=== PATIENT | male | born 1960 | race African-American/Black ===

== ENCOUNTER 2018-12-14 21:56 | Inpatient (IN) | payer OTHER ==
[2018-12-14 22:31] VITALS: BMI 31.1
--- NOTE | 2018-12-14 23:27 | HP ---
CIWA Score Nausea/Vomitin Muscle Tremors: 4-Moderate,w/Arms Extend Anxiety: 4-Mod. Anxious/Guarded Agitation: 4-Moderately Restless Paroxysmal Sweats: 3 Orientation: 3-Disoriented Date>2 days Tacttile Disturbances: 0-None Auditory Disturbances: 2-Mild Harshness/Frighten Visual Disturbances: 0-None Headache: 0-None Present CIWA-Ar Total Score: 23 - Admission Criteria OASAS Guidelines: Admission for Medically Managed Detox: Requires at least one of the followin. CIWA greater than 12 2. Seizures within the past 24 hours 3. Delirium tremens within the past 24 hours 4. Hallucinations within the past 24 hours 5. Acute intervention needed for co occurring medical disorder 6. Acute intervention needed for co occurring psychiatric disorder 7. Severe withdrawal that cannot be handled at a lower level of care (continued vomiting, continued diarrhea, abnormal vital signs) requiring intravenous medication and/or fluids 8. Admission ROS [facility] Chief Complaint: C/O WITHDRAWAL SX'S. SEEKING DETOX Allergies/Adverse Reactions: Allergies Allergy/AdvReac Type Severity Reaction Status Date / Time No Known Allergies Allergy Verified 12/14/18 22:27 History of Present Illness: 58 Y.O. MALE WITH ALCOHOLISM HERE FOR DETOX. CLIENT IS SELF REFERRED. FIRST ADMISSION HERE WITH C/O WITHDRAWAL SX'S. REPORTS DAILY ALCOHOL INTAKE. DENIES EYE FIELD HAND. LAST DRINK THIS MORNING. +CIWA. REPORTS HE FALLING DOWN HIS STEPS EARLIER TODAY AFTER LOOSING HIS BALANCE. HE SUSTAINED A LARGE HEMATOMA OF HIS CHIN. SMALL BRUISES TO THE RIGHT SIDE OF HIS HEAD AND A SMALL LACERATION TO RIGHT UPPER LIP. LEFT KNEE ABRASION NOTED. HE ALSO HAS BRUISING TO THE R THIGH WITH WHAT LOOKS LIKE OLD PUNCTURE MCCLELLAN. CLIENT REPORTS BEING BITTEN BY HIS GIMENEZ 2 WEEKS AGO. HE STATES HE DID NOT SEEK ANY MEDICAL ATTENTION FOR NONE OF THE ABOVE. DENIES HX/O SEIZURES, DOES BLACK OUT LAST BEING 8 MONTHS AGO. LIVES WITH BROTHER, EMPLOYED, DENIES LEGALS. Exam Limitations: No Limitations - Ebola screening Have you traveled outside of the country in the last 21 days: No (N) Have you had contact with anyone from an Ebola affected area: No Do you have a fever: No - Review of Systems Constitutional: Chills, Loss of Appetite, Changes in sleep, Other (BODY ACHES) EENT: reports: Other (MISSING TEETH) Respiratory: reports: No Symptoms reported Cardiac: reports: Chest Pain (08/29 MIDSTERNUM) GI: reports: Nausea, Poor Appetite, Poor Fluid Intake, Abdominal cramping : reports: No Symptoms Reported Musculoskeletal: reports: Joint Pain (BOTH KNEES CHRONIC) Integumentary: reports: Bruising (TO CHIN, LEFT SIDE OF FACE RIGHT THIGH) Neuro: reports: Tremors (R/T WITHDRAWAL SX'S), Other (BLACK OUTS) Endocrine: reports: No Symptoms Reported Hematology: reports: Easy Bruising, Other (NOSE BLEEDS) Psychiatric: reports: Agitated (IRRITABLE), Anxious, Depressed (DENIES SI/HI) Other Systems: Reviewed and Negative Patient History - Patient Medical History Hx Anemia: No Hx Asthma: No Hx Chronic Obstructive Pulmonary Disease (COPD): No Hx Cancer: No Hx Cardiac Disorders: No Hx Congestive Heart Failure: No Hx Hypertension: No Hx Hypercholesterolemia: No Hx Pacemaker: No HX Cerebrovascular Accident: No Hx Seizures: No Hx Dementia: No Hx Diabetes: No Hx Gastrointestinal Disorders: No Hx Liver Disease: No Hx Genitourinary Disorders: No Hx Sexually Transmitted Disorders: No Hx Renal Disease (ESRD): No Hx Thyroid Disease: No Hx Human Immunodeficiency Virus (HIV): No Hx Hepatitis C: No Hx Depression: No Hx Suicide Attempt: No Hx Bipolar Disorder: No Hx Schizophrenia: No Other Medical History: DENIES - Patient Surgical History Past Surgical History: No - PPD History Previous Implant?: Yes Documented Results: Negative w/o proof Implanted On Prior [facility] Admission?: No PPD to be Administered?: Yes - Smoking Cessation Smoking history: Never smoked Initiated information on smoking cessation: No - Substance & Tx. History Hx Alcohol Use: Yes Hx Substance Use: No Substance Use Type: Alcohol Hx Substance Use Treatment: No - Substances abused Alcohol Substance route: Oral Frequency: Daily Amount used: 2-3 CANS OF BEER, 1 PINT OF VODKA Age of first use: 49 Date of last use: 12/14/18 Admission Physical Exam B[facility] - Vital Signs Vital Signs: Vital Signs - 24 hr 12/14/18 22:20 Temperature 99.0 F Pulse Rate 98 H Respiratory 18 Rate Blood Pressure 110/71 - Diagnostic (1) Alcohol dependence with uncomplicated withdrawal Current Visit: Yes Status: Acute (2) Depressed affect Current Visit: Yes Status: Suspected Comment: EXPRESSES DEPRESSION. DENIES SI/HI (3) Status post fall Current Visit: Yes Status: Acute Comment: TRASFER TO [facility] FOR CLEARANCE (4) Hematoma Current Visit: Yes Status: Acute Comment: CHIN (5) Dog bite of right thigh Current Visit: Yes Status: Acute Qualifiers: Encounter type: subsequent encounter Qualified Code(s): S71.151D - Open bite, right thigh, subsequent encounter; W54.0XXD - Bitten by dog, subsequent encounter Cleared for Admission [facility] - Detox or Rehab [facility] Level of Care: Medically Managed Detox Regimen/Protocol: Librium Claeared for Rehab Admission: No Breathalyzer - Breathalyzer Breathalyzer: 0.153 Urine Drug Screen - Test Device Lot number: [id number] Expiration date: 08/19/20 - Control Is test valid?: Yes - Results Drug screen NEGATIVE: Yes Inpatient Rehab Admission - Rehab Decision to Admit Inpatient rehab admission?: No
[2018-12-14] MEDS ORDERED: METHOCARBAMOL 500 MG TABLET PO PRN (23:39)
[2018-12-14] MEDS ORDERED: MAG HYDROX/AL HYDROX/SIMETH 30 ML UNIT-DOSE CUP PO PRN (23:39)
[2018-12-14] MEDS ORDERED: DICYCLOMINE HCL 10 MG CAPSULE PO PRN (23:39)
[2018-12-14] MEDS ORDERED: BISMUTH SUBSALICYLATE 524 MG/30 ML UD PO PRN (23:39)
[2018-12-14] MEDS ORDERED: ACETAMINOPHEN 325 MG TABLET (FP) PO PRN ×2 (23:39)
[2018-12-14] MEDS ORDERED: MELATONIN 5 MG TABLETS PO PRN (23:39)
[2018-12-14] MEDS ORDERED: guaiFENesin 200 MG/10 ML 10 ML UNIT-DOSE CUPS PO PRN (23:39)
[2018-12-14] MEDS ORDERED: hydrOXYzine PAMOATE 25 MG CAPSULE (FP) PO PRN (23:39)
[2018-12-14] MEDS ORDERED: ONDANSETRON *ODT* 4 MG TABLET SL PRN (23:39)
[2018-12-14] MEDS ORDERED: MAGNESIUM CITRATE 300 ML BOTTLE PO PRN (23:39)
[2018-12-14] MEDS ORDERED: MAGNESIUM HYDROX 2400MG/30ML ORAL SUSPENSION 30 ML CUP PO PRN (23:39)
[2018-12-14] MEDS ORDERED: P-EPHED 60MG/TRIPROLIDI 2.5MG TABLET PO PRN (23:39)
[2018-12-14] MEDS ORDERED: MENTHOL/PHENOL 1 EACH UD MM PRN (23:39)
--- NOTE | 2018-12-15 05:39 | PN ---
[facility] Progress Note Note: SPOKE TO DR. COMBS. CLIENT IS STILL IN THE ED AWAITING DIAGNOSTIC TESTS PRIOR TO BEING CLEARED FOR RETURN. SAME ENDORSED TO RN FILTERER OMARI Rossi
--- NOTE | 2018-12-15 12:26 | PN ---
[facility] CIWA - CIWA Score Nausea/Vomitin-Mild Nausea/No Vomiting Muscle Tremors: 4-Moderate,w/Arms Extend Anxiety: 4-Mod. Anxious/Guarded Agitation: 4-Moderately Restless Paroxysmal Sweats: 2 Orientation: 2-Disoriented Date<2 days (date of week and day of month) Tacttile Disturbances: 0-None Auditory Disturbances: 0-None Visual Disturbances: 0-None Headache: 1-Very Mild CIWA-Ar Total Score: 18 BHS Progress Note (SOAP) Subjective: return from er alert oriented x 3 speech clearly coherently ambulating steady gait patient report left knee dog bit a month ago multiple scars tissue noted none tender but "muscle sore" patient report right knee dog bit a week ago multiple small round scars tissue noted no open would noted "muscle sore" as per patient described patient denies fresh dog bit Objective: 12/15/18 13:36 Vital Signs Temperature 98.5 F 12/15/18 13:22 Pulse Rate 97 H 12/15/18 13:22 Respiratory Rate 16 12/15/18 13:22 Blood Pressure 150/83 12/15/18 13:22 O2 Sat by Pulse Oximetry (%) lab see 12/14/18 Assessment: 12/15/18 13:38 alcohol withdrawal sx Plan: continue librium detox regimen
[2018-12-15] MEDS: IBUPROFEN 400 MG TABLET (FP) PO PRN ×2 (12:28→18:31)
[2018-12-15] MEDS: PRENATAL VITAMINS W/ FOLIC ACID TABLET (FP) PO SCH (12:31)
[2018-12-15] MEDS: chlordiazePOXIDE HCL 25 MG CAPSULE PO SCH ×2 (13:23→21:30)
[2018-12-15] MEDS: RANITIDINE HCL 150 MG TABLET (FP) PO SCH ×2 (13:23→22:07)
--- NOTE | 2018-12-15 14:16 | EKG ---
Test Reason : Blood Pressure : / mmHG Vent. Rate : 083 BPM Atrial Rate : 083 BPM P-R Int : 132 ms QRS Dur : 100 ms QT Int : 400 ms P-R-T Axes : 062 -17 042 degrees QTc Int : 470 ms NORMAL SINUS RHYTHM NORMAL ECG WHEN COMPARED WITH ECG OF 15-DEC-2018 01:30, NO SIGNIFICANT CHANGE WAS FOUND Confirmed by VIC QUINONEZ MD ([id number]) on 12/15/2018 2:15:44 PM Referred By: Amor Harris Confirmed By:VIC QUINONEZ MD
--- NOTE | 2018-12-15 14:26 | CONSULT ---
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 This is patient's first admission to detox at [facility]. Patient admitted to for alcohol dependence. Substance Abuse History: - Substance & Tx. History. Hx Alcohol Use: Yes. Hx Substance Use: No. Substance Use Type: Alcohol. Hx Substance Use Treatment: No. - Substances abused. Alcohol. Substance route: Oral. Frequency: Daily. Amount used: 2-3 CANS OF BEER, 1 PINT OF VODKA. Age of first use: 49. Date of last use: 12/14/18 Medical History: denies. Psychiatric History: Patient denies h/o psychiatric hospitalization, outpatient care and suicide attempt. Denies currently feeling depressed but states that he is grieving the of his mother which occured three weeks ago. Also stated that his nephew was murdered last year and three weeks later his cousin due to her sickle cell disease. At present, patient reports difficulty sleeping. Physical/Sexual Abuse/Trauma History: denies. Mental Status Exam - Mental Status Exam Alert and Oriented to: Time, Place, Person Cognitive Function: Good Patient Appearance: Well Groomed Mood: Euthymic Affect: Mood Congruent Patient Behavior: Cooperative Speech Pattern: Appropriate Voice Loudness: Moderately Soft/Quiet Thought Process: Goal Oriented Thought Disorder: Not Present Hallucinations: Denies Suicidal Ideation: Denies Homicidal Ideation: Denies Insight/Judgement: Poor Sleep: Poorly Appetite: Fair Muscle strength/Tone: Normal Gait/Station: Normal Psychiatric Findings - Problem List ([place] 1, 2,3) (1) Alcohol-induced mood disorder Status: Acute (2) Alcohol dependence with uncomplicated withdrawal Status: Suspected (3) Alcohol induced sleep disorders Status: Acute (4) Grieving Status: Acute - Initial Treatment Plan Initial Treatment Plan: Psychoeducation provided. Detoxification in progress. Patient made aware that Melatonin 5mg is ordered for insomnia and vistaril 25mg q6h is available for anxiety.
[2018-12-15] MEDS: amLODIPine BESYLATE 10 MG TABLET (FP) PO SCH (15:22)
[2018-12-15 15:34] LABS: EPI CELLS 1.4 /HPF (0-5/HPF); HYALINE CASTS 0 /lpf (0-8); PH,URINE 6.5 (5.0-8.0); URINE APPEARANCE CLEAR; URINE BACTERIA 5.1 /hpf (NEGATIVE); URINE BILIRUBIN 2+ (NEGATIVE); URINE COLOR DK YELLOW; URINE GLUCOSE (UA) NEGATIVE (NEGATIVE); URINE KETONE NEGATIVE (NEGATIVE); URINE LEUK ESTERASE NEGATIVE (NEGATIVE); URINE NITRITE NEGATIVE (NEGATIVE); URINE PROTEIN TRACE (NEGATIVE); URINE RBC 13 /hpf (0-4); URINE UROBILINOGEN 4.0 E.U/dl mg/dL (0.2-1.0); URINE WBC 1 /hpf (0-5)
[2018-12-15] MEDS: THIAMINE HCL 100 MG TABLET (FP) PO SCH (22:07)
[2018-12-16] MEDS: chlordiazePOXIDE HCL 25 MG CAPSULE PO SCH ×3 (05:22→23:28)
[2018-12-16] MEDS: PRENATAL VITAMINS W/ FOLIC ACID TABLET (FP) PO SCH (10:29)
[2018-12-16] MEDS: chlordiazePOXIDE HCL 10 MG CAPSULE PO PRN (10:29)
[2018-12-16] MEDS: RANITIDINE HCL 150 MG TABLET (FP) PO SCH ×2 (10:29→23:29)
[2018-12-16] MEDS: IBUPROFEN 400 MG TABLET (FP) PO PRN (10:31)
[2018-12-16] MEDS: amLODIPine BESYLATE 10 MG TABLET (FP) PO SCH (10:32)
--- NOTE | 2018-12-16 15:38 | PN ---
[facility] CIWA - CIWA Score Nausea/Vomitin-No Nausea/No Vomiting Muscle Tremors: 3 Anxiety: 3 Agitation: 2 Paroxysmal Sweats: No Perspiration Orientation: 0-Oriented Tacttile Disturbances: 2-Mild Itch/Numbness/Burn Auditory Disturbances: 2-Mild Harshness/Frighten Visual Disturbances: 1-Very Mild Sensitivity Headache: 0-None Present CIWA-Ar Total Score: 13 S Progress Note (SOAP) Subjective: Anxious, Tremors, Body Aches. Objective: PATIENT A & O X 3, OBSERVED AMBULATING ON DETOX UNIT UNASSISTED. IN NO ACUTE DISTRESS. 12/16/18 15:38 Vital Signs Temperature 97.0 F L 12/16/18 14:15 Pulse Rate 77 12/16/18 14:15 Respiratory Rate 18 12/16/18 14:15 Blood Pressure 129/80 12/16/18 14:15 O2 Sat by Pulse Oximetry (%) Laboratory Tests 12/15/18 11:25 Urine Color Dk yellow Urine Appearance Clear Urine pH 6.5 Ur Specific [place] 1.081 H Urine Protein Trace Urine Glucose (UA) Negative Urine Ketones Negative Urine Blood 1+ H Urine Nitrite Negative Urine Bilirubin 2+ H Urine Urobilinogen 4.0 e.u/dl Ur Leukocyte Esterase Negative Urine WBC (Auto) 1 Urine RBC (Auto) 13 Urine Casts (Auto) 0 U Epithel Cells (Auto) 1.4 Urine Bacteria (Auto) 5.1 LABS NOTED. Assessment: 12/16/18 15:41 WITHDRAWAL SYMPTOMS. HYPERBILIRUBINEMIA. ANEMIA. ELEVATED AST LEVEL. ELEVATED ALKALINE PHOSPHATASE LEVEL. (FINDINGS CONSISTENT WITH CIRRHOSIS OF LIVER NOTED ON CT SCAN OF ABDOMEN DONE AT [facility] YESTERDAY). 12/16/18 15:45 Plan: CONTINUE DETOX. OSCAL, 500 MG PO BID FOR OW CA LEVEL NOTED ON DETOX ADMISSION LABORATORY ASSESSMENT. PATIENT REPORTS THAT HE FELL A COUPLE OF DAYS AGO PRIOR TO ADMISSION TO DETOX AND THAT HE THINKS THAT HE INJURED HIS ABDOMEN DURING FALL. PATIENT WAS EVALUATED AT [facility] ER FOR FALL AND CT SCAN OF ABDOMEN WAS DONE (RESULTS NOTED: SEVERAL CHRONIC ISSUES NOTED; HOWEVER, NO ACUTE CHANGES NOTED ON ABDOMINAL CT SCAN REPORT). TODAY, PATIENT REPORTS PAIN (SHARP IN QUALITY, 10/10 ON PAIN SCALE, CONSTANT, GENERALIZED THROUGHOUT ABDOMEN). PAIN IS GENERALLY AGGRAVATED BY MOVEMENT, PARTICULARLY WHEN PATIENT IS TRYING TO GET UP OUT OF BED IN AM. PATIENT DENIES DIARRHEA, CONSTIPATION, OR RECENT CHANGE IN BOWEL MOVEMENTS. PATIENT DENIES NAUSEA / VOMITING. NO ERYTHEMA, BRUISING, OR WOUNDS NOTED ON VISUALIZATION OF ABDOMEN. ABDOMEN APPEARS SOMEWHAT DISTENDED. BOWEL SOUNDS NORMOACTIVE IN ALL FOUR QUADRANTS OF ABDOMEN. TENDERNESS NOTED UPON PALPATION OF ALL QUADRANTS OF ABDOMEN. REPORT GIVEN TO DR. PHILLIPS AT [facility]. PATIENT TO BE TAKEN VIA AMBULANCE TO [facility] FOR FURTHER MEDICAL EVALUATION. Sandra LUTZ NP.
[2018-12-16] MEDS: CALCIUM 500MG/VIT-D 200 UNITS COMBO TABLET (FP) PO SCH (23:28)
[2018-12-16] MEDS: THIAMINE HCL 100 MG TABLET (FP) PO SCH (23:29)
[2018-12-17] MEDS: chlordiazePOXIDE HCL 10 MG CAPSULE PO PRN (01:41)
[2018-12-17] MEDS: IBUPROFEN 400 MG TABLET (FP) PO PRN (01:41)
[2018-12-17] MEDS ORDERED: chlordiazePOXIDE 5 MG CAPSULE PO SCH (05:00)
[2018-12-17] MEDS ORDERED: LORazepam 0.5 MG TABLET PO PRN (09:20)
[2018-12-17] MEDS: RANITIDINE HCL 150 MG TABLET (FP) PO SCH ×2 (10:13→22:16)
[2018-12-17] MEDS: PRENATAL VITAMINS W/ FOLIC ACID TABLET (FP) PO SCH (10:13)
[2018-12-17] MEDS: amLODIPine BESYLATE 10 MG TABLET (FP) PO SCH (10:13)
[2018-12-17] MEDS: CALCIUM 500MG/VIT-D 200 UNITS COMBO TABLET (FP) PO SCH ×2 (10:13→22:17)
[2018-12-17 10:22] LABS: ALBUMIN 2.4 g/dl (3.4-5.0); BILIRUBIN,DIRECT 3.5 mg/dL (0.0-0.2); BILIRUBIN,TOTAL 4.3 mg/dL (0.2-1); TOT PROT 7.2 g/dl (6.4-8.2)
[2018-12-17] MEDS: LORazepam 1 MG TABLET PO SCH ×3 (12:43→22:17)
--- NOTE | 2018-12-17 17:29 | PN ---
S CIWA - CIWA Score Nausea/Vomitin (Abdominal Cramping.) Muscle Tremors: None Anxiety: 3 Agitation: 2 Paroxysmal Sweats: No Perspiration Orientation: 0-Oriented Tacttile Disturbances: 0-None Auditory Disturbances: 0-None Visual Disturbances: 0-None Headache: 0-None Present CIWA-Ar Total Score: 8 BHS Progress Note (SOAP) Subjective: Patient reports that Abdominal Pain persists and remains generally unchanged ( in quality, degree, and location) from yesterday. PATIENT WAS EVALUATED AT [facility] YESTERDAY FOR ABDOMINAL PAIN ( SEE C.I.W.A. / S.O.A.P. NOTE FOR 12/16/2018). Objective: PATIENT A & O X 3, OBSERVED AMBULATING ON DETOX UNIT UNASSISTED. IN NO ACUTE DISTRESS. 12/17/18 17:28 Vital Signs Temperature 97 F L 12/17/18 17:17 Pulse Rate 62 12/17/18 17:17 Respiratory Rate 18 12/17/18 17:17 Blood Pressure 124/77 12/17/18 17:17 O2 Sat by Pulse Oximetry (%) Laboratory Tests 12/15/18 12/17/18 11:25 07:40 Total Bilirubin 4.3 H Direct Bilirubin 3.5 H AST 76 H ALT 28 Alkaline Phosphatase 315 H Total Protein 7.2 Albumin 2.4 L Urine Color Dk yellow Urine Appearance Clear Urine pH 6.5 Ur Specific [place] 1.081 H Urine Protein Trace Urine Glucose (UA) Negative Urine Ketones Negative Urine Blood 1+ H Urine Nitrite Negative Urine Bilirubin 2+ H Urine Urobilinogen 4.0 e.u/dl Ur Leukocyte Esterase Negative Urine WBC (Auto) 1 Urine RBC (Auto) 13 Urine Casts (Auto) 0 U Epithel Cells (Auto) 1.4 Urine Bacteria (Auto) 5.1 LABS NOTED. RESULTS OF HFP DRAWN EARLIER TODAY NOTED. INCREASE IN TOTAL BILIRUBIN LEVEL NOTED. REDUCTIONS IN AST AND IN ALKALINE PHOSPHATASE LEVELS NOTED. 12/17/18 17:30 Assessment: 12/17/18 17:31 WITHDRAWAL SYMPTOMS. HYPERBILIRUBINEMIA. ELEVATED ALKALINE PHOSPHATASE LEVEL. ELEVATED AST LEVEL. Plan: CONTINUE DETOX. PATIENT ADVISED TO FOLLOW-UP WITH CONTINUOUS VULCANIZING MACHINE OPERATOR SOON POSSIBLE AFTER DISCHARGE FROM DETOX FOR GENERAL MEDICAL ASSESSMENT AND FOR ELEVATED LIVER ENZYMES AND FOR ELEVATED TOTAL BILIRUBBIN LEVELS AND FOR ANEMIA NOTED ON DETOX ADMISSION AND REPEAT LABORATORY LABORATORY ASSESSMENTS AND FOR VARIOUS ANOMALIES NOTED ON ABDOMINAL CT AND ON ABDOMINAL ULTRASOUND DONE WHAILE ADMTITED FOR DETOX. PATIENT VERBALIZED UNDERSTANDING OF RECOMMENDATION. COPIES OF RESULTS OF ALL LABS DRAWN WHILE ADMITTED FOR DETOX AND OF ABDOMINAL CT AND ULTRASOUND WILL BE GIVEN TO PATIENT AT TIME OF DISCHARGE FROM DETOX UNIT.
[2018-12-17] MEDS: THIAMINE HCL 100 MG TABLET (FP) PO SCH (22:16)
[2018-12-18] MEDS ORDERED: chlordiazePOXIDE HCL 10 MG CAPSULE PO PRN
[2018-12-18] MEDS ORDERED: chlordiazePOXIDE HCL 10 MG CAPSULE PO SCH (05:00)
[2018-12-18] MEDS: LORazepam 0.5 MG TABLET PO SCH ×4 (05:26→22:30)
[2018-12-18] MEDS: RANITIDINE HCL 150 MG TABLET (FP) PO SCH ×2 (10:23→22:31)
[2018-12-18] MEDS: CALCIUM 500MG/VIT-D 200 UNITS COMBO TABLET (FP) PO SCH ×2 (10:23→22:31)
[2018-12-18] MEDS: amLODIPine BESYLATE 10 MG TABLET (FP) PO SCH (10:23)
[2018-12-18] MEDS: PRENATAL VITAMINS W/ FOLIC ACID TABLET (FP) PO SCH (10:23)
--- NOTE | 2018-12-18 12:28 | PN ---
[facility] CIWA - CIWA Score Nausea/Vomitin-No Nausea/No Vomiting Muscle Tremors: 1-None Visible, but [place] Anxiety: 1-Mildly Anxious Agitation: 1-Slight > Activity Paroxysmal Sweats: 1-Minimal Palms Moist Orientation: 0-Oriented Tacttile Disturbances: 0-None Auditory Disturbances: 0-None Visual Disturbances: 0-None Headache: 0-None Present CIWA-Ar Total Score: 4 S Progress Note (SOAP) Subjective: doing well with ativan detox regimen less tremor slept better at night Objective: 12/18/18 12:27 Vital Signs Temperature 97.5 F L 12/18/18 09:48 Pulse Rate 99 H 12/18/18 09:48 Respiratory Rate 20 12/18/18 09:48 Blood Pressure 126/76 12/18/18 09:48 O2 Sat by Pulse Oximetry (%) Laboratory Last Values Total Bilirubin 4.3 mg/dL (0.2-1) H 12/17/18 07:40 Direct Bilirubin 3.5 mg/dL (0.0-0.2) H 12/17/18 07:40 AST 76 U/L (15-37) H 12/17/18 07:40 ALT 28 U/L (13-61) 12/17/18 07:40 Alkaline Phosphatase 315 U/L (45-117) H 12/17/18 07:40 Total Protein 7.2 g/dl (6.4-8.2) 12/17/18 07:40 Albumin 2.4 g/dl (3.4-5.0) L 12/17/18 07:40 Urine Color Dk yellow 12/15/18 11:25 Urine Appearance Clear 12/15/18 11:25 Urine pH 6.5 (5.0-8.0) 12/15/18 11:25 Ur Specific [place] 1.081 (1.010-1.035) H 12/15/18 11:25 Urine Protein Trace (NEGATIVE) 12/15/18 11:25 Urine Glucose (UA) Negative (NEGATIVE) 12/15/18 11:25 Urine Ketones Negative (NEGATIVE) 12/15/18 11:25 Urine Blood 1+ (NEGATIVE) H 12/15/18 11:25 Urine Nitrite Negative (NEGATIVE) 12/15/18 11:25 Urine Bilirubin 2+ (NEGATIVE) H 12/15/18 11:25 Urine Urobilinogen 4.0 e.u/dl mg/dL (0.2-1.0) 12/15/18 11:25 Ur Leukocyte Esterase Negative (NEGATIVE) 12/15/18 11:25 Urine WBC (Auto) 1 /hpf (0-5) 12/15/18 11:25 Urine RBC (Auto) 13 /hpf (0-4) 12/15/18 11:25 Urine Casts (Auto) 0 /lpf (0-8) 12/15/18 11:25 U Epithel Cells (Auto) 1.4 /HPF (0-5/HPF) 12/15/18 11:25 Urine Bacteria (Auto) 5.1 /hpf (NEGATIVE) 12/15/18 11:25 lab noted Assessment: 12/18/18 12:27 alcohol withdrawal sx Plan: [facility]
[2018-12-18] MEDS: THIAMINE HCL 100 MG TABLET (FP) PO SCH (22:30)
[2018-12-19] MEDS ORDERED: LORazepam 0.5 MG TABLET PO ONE (05:00)
[2018-12-19] MEDS ORDERED: chlordiazePOXIDE HCL 10 MG CAPSULE PO ONE (05:00)
[2018-12-19 06:31] VITALS: BP 140/83; PULSE 94; TEMP 99.2
--- NOTE | 2018-12-19 11:50 | DS ---
[facility] Detox Discharge Summary Admission Date: 12/15/18 Discharge Date: 12/19/18 - History Present History: Alcohol Dependence Additional Comments: did well with ativan detox regimen transferred to ER for abdominal pain 12/29 medically cleared return to detox unit for alcohol detox patient experienced similar pain on 12/14/18 treated at ER patient agrees to follow up with primary care provider for possible renal specialist referral today patient is alert oriented x 3 denies pain ambulating steady gait speech clearly and coherently cardiac S1S2 regular rate and rhythm respiratory clear lung bilaterally on auscultation Vital Signs Temperature 99.2 F 12/19/18 06:30 Pulse Rate 94 H 12/19/18 06:30 Respiratory Rate 18 12/19/18 06:30 Blood Pressure 140/83 12/19/18 06:30 O2 Sat by Pulse Oximetry (%) extremities full range of motion patient reports antihypertensive medications at home and will follow up with primary care provider for bp monitoring - Physical Exam Results Vital Signs: Vital Signs Temperature 99.2 F 12/19/18 06:30 Pulse Rate 94 H 12/19/18 06:30 Respiratory Rate 18 12/19/18 06:30 Blood Pressure 140/83 12/19/18 06:30 O2 Sat by Pulse Oximetry (%) Pertinent Admission Physical Exam Findings: alcohol withdrawal sx Laboratory Last Values Total Bilirubin 4.3 mg/dL (0.2-1) H 12/17/18 07:40 Direct Bilirubin 3.5 mg/dL (0.0-0.2) H 12/17/18 07:40 AST 76 U/L (15-37) H 12/17/18 07:40 ALT 28 U/L (13-61) 12/17/18 07:40 Alkaline Phosphatase 315 U/L (45-117) H 12/17/18 07:40 Total Protein 7.2 g/dl (6.4-8.2) 12/17/18 07:40 Albumin 2.4 g/dl (3.4-5.0) L 12/17/18 07:40 Urine Color Dk yellow 12/15/18 11:25 Urine Appearance Clear 12/15/18 11:25 Urine pH 6.5 (5.0-8.0) 12/15/18 11:25 Ur Specific [place] 1.081 (1.010-1.035) H 12/15/18 11:25 Urine Protein Trace (NEGATIVE) 12/15/18 11:25 Urine Glucose (UA) Negative (NEGATIVE) 12/15/18 11:25 Urine Ketones Negative (NEGATIVE) 12/15/18 11:25 Urine Blood 1+ (NEGATIVE) H 12/15/18 11:25 Urine Nitrite Negative (NEGATIVE) 12/15/18 11:25 Urine Bilirubin 2+ (NEGATIVE) H 12/15/18 11:25 Urine Urobilinogen 4.0 e.u/dl mg/dL (0.2-1.0) 12/15/18 11:25 Ur Leukocyte Esterase Negative (NEGATIVE) 12/15/18 11:25 Urine WBC (Auto) 1 /hpf (0-5) 12/15/18 11:25 Urine RBC (Auto) 13 /hpf (0-4) 12/15/18 11:25 Urine Casts (Auto) 0 /lpf (0-8) 12/15/18 11:25 U Epithel Cells (Auto) 1.4 /HPF (0-5/HPF) 12/15/18 11:25 Urine Bacteria (Auto) 5.1 /hpf (NEGATIVE) 12/15/18 11:25 lab noted patient agrees to follow up with his primary care provider - Treatment Hospital Course: Detox Protocol Followed, Detoxed Safely, Responded well, Discharged Condition Good, Rehab Referral Accepted Patient has Accepted a Rehab Referral to: [facility] - Medication Discharge Medications: Ambulatory Orders NK [No Known Home Medication] 12/14/18 - Diagnosis (1) Alcohol dependence with uncomplicated withdrawal Status: Suspected (2) Hypertension Status: Chronic Qualifiers: Hypertension type: essential hypertension Qualified Code(s): I10 - Essential (primary) hypertension (3) GERD (gastroesophageal reflux disease) Status: Chronic Qualifiers: Esophagitis presence: without esophagitis Qualified Code(s): K21.9 - Gastro -esophageal reflux disease without esophagitis - AMA Did Patient Leave Against Medical Advice: No CIWA Score - CIWA Score Nausea/Vomitin-No Nausea/No Vomiting Muscle Tremors: None Anxiety: 0-No Anxiety, at Ease Agitation: 0-Normal Activity Paroxysmal Sweats: 1-Minimal Palms Moist Orientation: 0-Oriented Tacttile Disturbances: 0-None Auditory Disturbances: 0-None Visual Disturbances: 0-None Headache: 0-None Present CIWA-Ar Total Score: 1
== END 2018-12-19 08:44 | disposition home or self-care (01) | DRG 775 ==
LOC: YASAS 21:56 → Y3N 12-15 00:10
PROVIDERS: ADMIT Surgery; ATTEND Surgery
PROC: HZ2ZZZZ Detoxification Services for Substance Abuse Treatment (ICD-10-PCS; principal; 2018-12-15)
DX: F10.230 Alcohol dependence with withdrawal, uncomplicated (principal); F10.24 Alcohol dependence with alcohol-induced mood disorder; F10.282 Alcohol dependence with alcohol-induced sleep disorder; F32.9 Major depressive disorder, single episode, unspecified; I10 Essential (primary) hypertension; K21.9 Gastro-esophageal reflux disease without esophagitis; E80.6 Other disorders of bilirubin metabolism; D64.9 Anemia, unspecified; K74.60 Unspecified cirrhosis of liver; S00.83XD Contusion of other part of head, subsequent encounter; W19.XXXD Unspecified fall, subsequent encounter; S71.151D Open bite, right thigh, subsequent encounter; W54.0XXD Bitten by dog, subsequent encounter
CPT/HCPCS: 36415; 80076; 81003; 93005; 93010

== ENCOUNTER 2018-12-15 00:04 | Emergency (ER) | payer SELFPAY ==
--- NOTE | 2018-12-15 01:04 | PDOC ---
Attending Attestation - Resident Resident Name: BerniceSavi - ED Attending Attestation I have performed the following: I have examined & evaluated the patient, The case was reviewed & discussed with the resident, I agree w/resident's findings & plan - HPI HPI: 12/15/18 02:44 see resident hpi - Physicial Exam PE: 12/15/18 02:44 agree with resident exam - Medical Decision Making 12/15/18 02:44 58 yo male s/p fall down stairs with abd pain, vomiting perdomo trauma CT due to LOC and ETOH abuse hopefully clear back to rehab
--- NOTE | 2018-12-15 01:11 | PDOC ---
History of Present Illness - General Chief Complaint: Injury Stated Complaint: FALL Time Seen by Provider: 12/15/18 01:01 History Source: Patient Exam Limitations: No Limitations - History of Present Illness Initial Comments: 12/15/18 07:40 58yo M with PMH of Alcohol use presenting to ED s/p fall. Pt states he drank 1/ 2L vodka at 1230pm then fell down the stairs around 1pm because hi tripped due to his dog. He states that he had loc for 2 min. He then got up to work on his computer, fell asleep after eating a sandwich. Started vomiting (nbnb) upon waking and vomited multiple times after that. He states that his brother sent him to [facility] for detox. He endorses pain under his chin, diffuse abdominal pain. Denies headache, changes in vision, back pain, neck pain, epistaxis, weakness, numbness/tingling. Past History - Past Medical History Allergies/Adverse Reactions: Allergies Allergy/AdvReac Type Severity Reaction Status Date / Time No Known Allergies Allergy Verified 12/15/18 02:58 Home Medications: Ambulatory Orders NK [No Known Home Medication] 12/14/18 Anemia: No Asthma: No Cancer: No Cardiac Disorders: No CVA: No COPD: No CHF: No Dementia: No Diabetes: No GI Disorders: No Disorders: No HTN: No Hypercholesterolemia: No Liver Disease: No Seizures: No Thyroid Disease: No - Psycho Social/Smoking Cessation Hx Smoking History: Never smoked Hx Alcohol Use: Yes Drug/Substance Use Hx: No Substance Use Type: Alcohol Hx Substance Use Treatment: No Review of Systems - Review of Systems Constitutional: No: Symptoms Reported HEENTM: Yes: See HPI Respiratory: No: Symptoms reported Cardiac (ROS): No: Symptoms Reported ABD/GI: Yes: See HPI : No: Symptoms Reported Musculoskeletal: Yes: See HPI Integumentary: Yes: See HPI Neurological: No: Symptoms reported *Physical Exam - Physical Exam General Appearance: Yes: Nourished, Appropriately Dressed. No: Apparent Distress HEENT: positive: EOMI, MAXIMILIANO, Normal ENT Inspection, TMs Normal, Other ( eccymosis under chin, ttp, no dislocations, bony deformities. negative battles sign, normal TM) Neck: positive: Trachea midline, Supple. negative: Lymphadenopathy (R), Lymphadenopathy (L), Rigidity, Tender lateral, Tender midline Respiratory/Chest: positive: Lungs Clear. negative: Chest Tender, Accessory Muscle Use Cardiovascular: positive: Regular Rhythm, Regular Rate, S1, S2. negative: Edema , JVD, Murmur Vascular Pulses: Dorsalis-Pedis (R): 2+, Doralis-Pedis (L): 2+ Gastrointestinal/Abdominal: positive: Normal Bowel Sounds, Soft, Tenderness. negative: Protuberent, Distended, Guarding, Rebound Musculoskeletal: negative: CVA Tenderness Extremity: positive: Normal Capillary Refill. 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 will obtain labs, ekg, cxr, perdomo scan. labs wnl. no white count. ct head and cspine negative for bleed or fracture. atelectasis v. infiltrate. no white count, no sob. low suspicion for pna. pt eating and ambulatory, safe for dc back to [facility], given return precautions. Discharge - Discharge Information Problems reviewed: Yes Clinical Impression/Diagnosis: Fall Qualifiers: Encounter type: initial encounter Qualified Code(s): W19.XXXA - Unspecified fall, initial encounter Condition: Good Disposition: HOME - Follow up/Referral - Patient Discharge Instructions Patient Printed Discharge Instructions: How to Prevent Falls Additional Instructions: You were seen in the emergency room today for a fall. The CT scans are all normal, no fractures or bleeding seen. Come back to the emergency room if you have numbness/tingling, difficulty walking, difficulty speaking, abdominal pain, n/v/d, blood in the vomit, fevers , or if any new concerning symptom develops. Thank you - Post Discharge Activity
[2018-12-15] MEDS ORDERED: FAMOTIDINE 20 MG/50 ML IVPB 20 MG/50 ML MG IVPB ONE ×2 (01:20→01:52)
[2018-12-15] MEDS ORDERED: SODIUM CHLORIDE 1,000 ML IV STA (01:20)
[2018-12-15 01:41] LABS: EOS % 0.7 % (0-4.5); HEMATOCRIT 31.8 % (35.4-49); HEMOGLOBIN 10.4 GM/dL (11.7-16.9); LYMPH % 9.5 % (8-40); MCH 31.7 pg (25.7-33.7); MCHC 32.8 g/dl (32.0-35.9); MEAN CELL VOLUME 96.6 fl (80-96); MONO % 5.9 % (3.8-10.2); NEUT % 80.9 % (42.8-82.8); PLATELET COUNT 152 K/MM3 (134-434); RDW 15.8 % (11.9-15.9)
[2018-12-15 01:52] LABS: INR 1.65 (0.83-1.09); PROTHROMBIN TIME (PATIENT) 19.6 SEC (9.7-13.0)
[2018-12-15 02:10] LABS: ALBUMIN 2.9 g/dl (3.4-5.0); ALK PHOS 344 U/L (45-117); ANION GAP 8 MMOL/L (8-16); BILIRUBIN,TOTAL 3.6 mg/dL (0.2-1); BLOOD UREA NITROGEN 8.3 mg/dL (7-18); CALCIUM 7.9 mg/dL (8.5-10.1); CHLORIDE 107 mmol/L (98-107); CO2 27 mmol/L (21-32); CREATININE 0.7 mg/dL (0.55-1.3); GLUCOSE,RANDOM 105 mg/dL (74-106); POTASSIUM 4.2 mmol/L (3.5-5.1); SGOT/AST 123 U/L (15-37); SGPT/ALT 38 U/L (13-61); SODIUM 142 mmol/L (136-145); TOT PROT 8.4 g/dl (6.4-8.2)
[2018-12-15] MEDS ORDERED: ACETAMINOPHEN 1000 MG/100 ML VIAL (NON FORMULARY) IVPB ONE (02:29)
[2018-12-15 02:58] VITALS: BP 111/56; PULSE 89; TEMP 98.2; BMI 35.9
[2018-12-15] MEDS ORDERED: ACETAMINOPHEN INJECTION 100 ML IVPB ONE (03:18)
--- NOTE | 2018-12-15 14:07 | EKG ---
Test Reason : Blood Pressure : / mmHG Vent. Rate : 086 BPM Atrial Rate : 086 BPM P-R Int : 134 ms QRS Dur : 096 ms QT Int : 402 ms P-R-T Axes : 067 -20 055 degrees QTc Int : 481 ms NORMAL SINUS RHYTHM PROLONGED QT ABNORMAL ECG NO PREVIOUS ECGS AVAILABLE Confirmed by DEVI ALLRED, VIC ([id number]) on 12/15/2018 2:06:57 PM Referred By: Confirmed By:VIC QUINONEZ MD
[2018-12-16 06:33] LABS: LIPASE 164 U/L (73-393)
== END 2018-12-15 08:33 | disposition home or self-care (01) ==
LOC: JER 00:04
PROC: 3E033NZ Introduction of Analgesics, Hypnotics, Sedatives into Peripheral Vein, Percutaneous Approach (ICD-10-PCS; principal; 2018-12-15)
PROC: 3E033GC Introduction of Other Therapeutic Substance into Peripheral Vein, Percutaneous Approach (ICD-10-PCS; 2018-12-15)
PROC: 3E0337Z Introduction of Electrolytic and Water Balance Substance into Peripheral Vein, Percutaneous Approach (ICD-10-PCS; 2018-12-15)
DX: S06.9X9A Unspecified intracranial injury with loss of consciousness of unspecified duration, initial encounter (principal); W10.9XXA Fall (on) (from) unspecified stairs and steps, initial encounter; Y93.89 Activity, other specified; Y92.89 Other specified places as the place of occurrence of the external cause; F10.10 Alcohol abuse, uncomplicated
CPT/HCPCS: 36415; 70450-TC; 70486-TC; 71045-TC-FY; 72125-TC; 74177-TC; 80053; 80307; 83690; 84484; 85025; 85610; 86850; 86900; 86901; 93005; 93010; 99282-25; J0131; J7030

== ENCOUNTER 2018-12-16 17:29 | Emergency (ER) | payer OTHER ==
[2018-12-16 18:10] VITALS: TEMP 98.3; BMI 28.5
[2018-12-16 19:42] LABS: BASO % 0.9 % (0-2.0); EOS % 1.8 % (0-4.5); HEMATOCRIT 27.9 % (35.4-49); HEMOGLOBIN 9.4 GM/dL (11.7-16.9); MCH 32.3 pg (25.7-33.7); MCHC 33.6 g/dl (32.0-35.9); MEAN CELL VOLUME 96.2 fl (80-96); MEAN PLT VOLUME 9.5 fl (7.5-11.1); MONO % 5.2 % (3.8-10.2); NEUT % 78.1 % (42.8-82.8); PLATELET COUNT 138 K/MM3 (134-434); RDW 15.5 % (11.9-15.9); WHITE BLOOD COUNT 8.3 K/mm3 (4.0-10.0)
[2018-12-16 20:09] LABS: ALBUMIN 2.4 g/dl (3.4-5.0); BILIRUBIN,TOTAL 4.1 mg/dL (0.2-1); BLOOD UREA NITROGEN 11.2 mg/dL (7-18); CALCIUM 7.8 mg/dL (8.5-10.1); CREATININE 0.5 mg/dL (0.55-1.3); POTASSIUM 3.9 mmol/L (3.5-5.1); TOT PROT 7.2 g/dl (6.4-8.2)
--- NOTE | 2018-12-16 20:34 | PDOC ---
History of Present Illness - General Chief Complaint: Pain Stated Complaint: ABDOMINAL PAIN Time Seen by Provider: 12/16/18 19:19 History Source: Patient Exam Limitations: No Limitations - History of Present Illness Initial Comments: 12/16/18 20:34 Alen Miguel is a 58M with PMH alcohol use disorder presenting from [facility] for upper abdominal pain. Patient reports drinking 1/2 bottle of vodka and some beers 3 days TILE [employer]ICK[employer] that resulted in him falling down the stairs while intoxicated. Presented to [facility] ED and was evaluated with labs, CXR, and CT head/cspine/face/abd that did not reveal any acute pathologies, was discharged to [facility] for detox. However, patient has been feeling 10/10 abd pain in his upper abdomen on both sides at all times, says he is uncomfortable and in pain. Pain is the same as the pain that he felt after falling down the stairs, has not improved or worsened, does not have an inciting or relieving activity, unrelated to food intake. Denies N/V, C/D, chest pain, SOB, fever, urinary sx. Denies any other PMH or daily medications. NKDA. Past History - Past Medical History Allergies/Adverse Reactions: Allergies Allergy/AdvReac Type Severity Reaction Status Date / Time No Known Allergies Allergy Verified 12/16/18 18:10 Home Medications: Ambulatory Orders NK [No Known Home Medication] 12/14/18 Anemia: No Asthma: No Cancer: No Cardiac Disorders: No CVA: No COPD: No CHF: No Dementia: No Diabetes: No GI Disorders: No Disorders: No HTN: No Hypercholesterolemia: No Liver Disease: No Seizures: No Thyroid Disease: No - Psycho Social/Smoking Cessation Hx Smoking History: Never smoked Have you smoked in the past 12 months: No Information on smoking cessation initiated: No Hx Alcohol Use: Yes Drug/Substance Use Hx: No Substance Use Type: Alcohol Hx Substance Use Treatment: No Review of Systems - Review of Systems Able to Perform ROS?: Yes Is the patient limited Honduran proficient: No Constitutional: No: Chills, Fever HEENTM: Yes: Mouth Pain (pain on chin). No: Blurred Vision, Recent change in vision, Hearing Loss, Throat Pain Respiratory: No: Cough, Shortness of Breath, Wheezing Cardiac (ROS): No: Chest Pain, Edema, Palpitations ABD/GI: Yes: Other (upper abdominal pain). No: Constipated, Diarrhea, Nausea, Vomiting : No: Burning, Dysuria, Discharge, Frequency, Flank Pain, Hematuria Musculoskeletal: No: Symptoms Reported Integumentary: No: Symptoms Reported Neurological: No: Headache, Numbness, Paresthesia, Tingling Endocrine: No: Symptoms Reported Hematologic/Lymphatic: No: Symptoms Reported All Other Systems: Reviewed and Negative *Physical Exam - Vital Signs Last Vital Signs Temp Pulse Resp BP Pulse Ox 98.3 F 83 18 117/76 100 12/16/18 18:12/16/18 18:12/16/18 18:12/16/18 18:12/16/18 18:09 - Physical Exam General Appearance: Yes: Nourished, Appropriately Dressed. No: Apparent Distress HEENT: positive: EOMI, MAXIMILIANO, Normal Voice, Symmetrical, Pharynx Normal. negative: Scleral Icterus (R), Scleral Icterus (L), Pharyngeal Erythema, Tonsillar Exudate Neck: positive: Normal Thyroid, Supple. negative: Tender, Rigid, Lymphadenopathy (R), Lymphadenopathy (L) Respiratory/Chest: positive: Lungs Clear, Normal Breath Sounds. negative: Respiratory Distress, Crackles, Rales, Rhonchi Cardiovascular: positive: Regular Rhythm, Regular Rate. negative: Edema Gastrointestinal/Abdominal: positive: Normal Bowel Sounds, Flat, Soft, Other ( upper abdomen is non-tender to palpation with no rebound or guarding, negative Whitt's sign). negative: Tender Musculoskeletal: positive: Normal Inspection. negative: CVA Tenderness Extremity: positive: Normal Capillary Refill, Normal Inspection, Normal Range of Motion. negative: Tender Integumentary: positive: Normal Color, Dry, Warm Neurologic: positive: Fully Oriented, Alert, Normal Mood/Affect, Normal Response ED Treatment Course - LABORATORY CBC & Chemistry Diagram: 12/16/18 19:15 12/16/18 19:15 - ADDITIONAL ORDERS Additional order review: Laboratory Results 12/16/18 12/16/18 12/16/18 19:15 19:15 19:15 Sodium 137 Potassium 3.9 Chloride 104 Carbon Dioxide 29 Anion Gap 5 L BUN 11.2 Creatinine 0.5 L Est GFR (CKD-EPI)AfAm 137.48 Est GFR (CKD-EPI)NonAf 118.62 Random Glucose 99 Lactic Acid 1.3 Calcium 7.8 L Total Bilirubin 4.1 H AST 87 H ALT 29 Alkaline Phosphatase 328 H Total Protein 7.2 Albumin 2.4 L Total Amylase Lipase 151 12/16/18 19:15 Sodium Potassium Chloride Carbon Dioxide Anion Gap BUN Creatinine Est GFR (CKD-EPI)AfAm Est GFR (CKD-EPI)NonAf Random Glucose Lactic Acid Calcium Total Bilirubin AST ALT Alkaline Phosphatase Total Protein Albumin Total Amylase 134 H Lipase 12/16/18 19:15 RBC 2.90 L MCV 96.2 H MCHC 33.6 RDW 15.5 MPV 9.5 Neutrophils % 78.1 Lymphocytes % 14.0 D Monocytes % 5.2 Eosinophils % 1.8 D Basophils % 0.9 Medical Decision Making - Medical Decision Making 12/16/18 20:34 Alen Miguel is a 58M with H alcohol use disorder presenting from [facility] for upper abdominal pain. Given that patient was evaluated for the same complaint 3 days ago without findings on CT abd, head, and neck, acute process less likely. However, patient is describing 10/10 pain that has not improved in the same place after his fall , warranting further evaluation for renal process such as UTI vs. renal calculus vs. pyelo, pancreatitis, gastritis, SBO. Rib fracture less liekly given negative CXR prior as well as no tenderness to palpation of costal margin or difficulty breathing. Will obtain: ECG CMP CBC Lipase UA/UC Giving patient 1L IVF, IV pepcid, IV famotidine. 12/16/18 21:20 AST and AP decreased but still elevated. Tbili increasing. Concern for biliary/ hepatic pathology. Evaluating via RUQ US. 12/16/18 23:01 US read: Hepatomegaly with fatty infiltration versus hepatocellular disease. A few hypoechoic and slightly hyperechoic hepatic lesions, as described above with the largest measuring 2.4 x 1.9 cm. Although the differential diagnosis may include cavernous hemangiomas, other causes of hepatic lesions could not be excluded. Correlate clinically and correlation with contrast-enhanced CT scan or MRI of the abdomen is recommended utilizing hemangioma protocol for further evaluation Diffuse thickening of the gallbladder wall without gross intraluminal stones or pericholecystic free fluid. Scoring Machine Operator reports a negative Whitt's sign. Correlate clinically for further evaluation. A small amount of free fluid/ ascites is present in the right upper abdomen. 09/27/19 23:20 Does not have a fever, lithiasis, abd pain, or WBC elevation, less likely to have acute cholangitis. Patient stable to be discharged home with GI follow-up. Etiology of pain remains unknown, but no concerning pathologies noted at this time that need immediate intervention. Hypocalcemia noted at 7.8, corrected to 9.1 with low albumin. Discharge - Discharge Information Problems reviewed: Yes Clinical Impression/Diagnosis: Fatty liver Abdominal pain Qualifiers: Abdominal location: unspecified location Qualified Code(s): R10.9 - Unspecified abdominal pain Condition: Stable Disposition: HOME - Admission No - Follow up/Referral Referrals: Amor Harris MD [Primary Care Provider] - - Patient Discharge Instructions Patient Printed Discharge Instructions: DI for Abdominal Pain-Adult Additional Instructions: Today you were evaluated for upper abdominal pain. You were recently evaluated for a similar pain, and no findings were found concerning for organ bleeding, infection, or any other diseases that need immediate treatment. We repeated your blood labs today that show that your liver enzymes are still slightly elevated, To evaluate your liver, we performed an ultrasound of your liver that does not show any concerning disease in your gallbladder or liver, but does show some lesions on your liver that may be alcohol-related and should be follow -ed up with a wood boring machine operator. If you continue to experience abdominal pain, please try to stay hydrated and take ibuprofen as instructed on the bottle. Avoid Tylenol, as this may harm your liver. We have provided a referral to a wood boring machine operator, but you are free to follow-up with your preferred GI doctor as well. Please continue to follow your protocols at [facility]. Please see your primary doctor in the next 3 days for further care. If you experience nausea, vomiting, chest pain, dizziness, diarrhea, or any other new or concerning symptoms, please return to the emergency room immediately. - Post Discharge Activity
--- NOTE | 2018-12-16 20:40 | PDOC ---
Attending Attestation - Resident Resident Name: Nam Hills - ED Attending Attestation I have performed the following: I have examined & evaluated the patient, The case was reviewed & discussed with the resident, I agree w/resident's findings & plan, Exceptions are as noted - HPI HPI: 12/16/18 20:40 Mr. Miguel is a 58 yo M who presents to he ER with a complain of abdominal pain He apparently was intoxcated and fell down a flight of stairs in his home yesterday (wood stairs, tile floors in basement) Pt was evaluated with labs and CT - no acute findings Pt sent to [facility] was given motrin for pain which he says has not helped He denies fevers or chills He denies nausea or vomiting No diarrhea Does note a decrease in his appetite He reports that his pain is sharp, located through out the abdomen, most severe in the epigastrium No flank pain No prior episodes like this Pain occurred AFTER his fall (not before) 12/16/18 21:12 12/16/18 21:12 - Physicial Exam PE: 12/16/18 21:12 GENERAL: The patient is in no acute distress, pt is frustrated. ENT: Ears normal, nares patent, oropharynx clear without exudates. Moist mucous membranes. NECK: Normal range of motion, supple LUNGS: Breath sounds equal, clear to auscultation bilaterally. No wheezes, and no crackles. HEART:Regular rate and rhythm, normal S1 and S2 without murmur, rub or gallop. ABDOMEN: Soft, protruberant, diffusely tender most tender in the epigastrium EXTREMITIES: Normal range of motion, no edema. NEUROLOGICAL: Cranial nerves II through XII grossly intact. Normal speech. No focal neurological deficits. SKIN: No bruising noted, no rashes, no abrasions 12/16/18 21:14 - Medical Decision Making 12/16/18 21:15 Pt was imaged yesterday with CT No acute findings seen Laboratory Tests 12/15/18 12/16/18 12/16/18 01:30 19:15 19:15 WBC 8.3 Hgb 10.4 L 9.4 L Hct 31.8 L 27.9 L Plt Count 138 BUN 11.2 Creatinine 0.5 L Lactic Acid Lipase 09/27/19 09/27/19 19:15 19:15 WBC Hgb Hct Plt Count BUN Creatinine Lactic Acid 1.3 Lipase 151 Of noted, pt has an elevated Bilirubin Will do: U/S to further assess Liver and GB Pt is frustrated with the wait in the ER and would ultimately like to follow up at [facility] where his brother and sister are physicians 12/16/18 23:13 US with no new findings, + ascites, + hemangioma Will give sandwich as pt is very upset that he has not gotten a sandwich EKG - NSR rate of 75 bpm, Pt frustrated that he is still in the ER and would like to go home Pt given copies of all results CT findings all underlined Will return to [facility] 12/16/18 23:15 12/16/18 23:17 Calcium noted to be 7.2 This corrects to 9.1 12/16/18 23:18 EKG - NSR rate of 75 bpm, axis nml, frequent PVCs, t waves upright
[2018-12-16] MEDS ORDERED: SODIUM CHLORIDE 0.9% 500 ML INFUS.BAG IV ONE (20:45)
[2018-12-16 21:53] LABS: EPI CELLS 0.7 /HPF (0-5/HPF); HYALINE CASTS 0 /lpf (0-8); PH,URINE 7.5 (5.0-8.0); URINE APPEARANCE CLEAR; URINE BACTERIA 0.8 /hpf (NEGATIVE); URINE BILIRUBIN 3+ (NEGATIVE); URINE COLOR DK YELLOW; URINE GLUCOSE (UA) NEGATIVE (NEGATIVE); URINE KETONE TRACE (NEGATIVE); URINE LEUK ESTERASE TRACE (NEGATIVE); URINE NITRITE POSITIVE (NEGATIVE); URINE PROTEIN NEGATIVE (NEGATIVE); URINE RBC 2 /hpf (0-4); URINE UROBILINOGEN >=8.0 E.U./dl mg/dL (0.2-1.0); URINE WBC 0 /hpf (0-5)
[2018-12-16] MEDS ORDERED: ACETAMINOPHEN 500 MG TABLET (FP) PO ONE (22:37)
[2018-12-16] MEDS ORDERED: ACETAMINOPHEN 325 MG TABLET (FP) ONE (23:22)
[2018-12-17 01:11] VITALS: BP 107/67; PULSE 90
[2018-12-17] MEDS ORDERED: lamoTRIgine 100 MG TABLET (FP) ONE (01:40)
[2018-12-17] MEDS ORDERED: levETIRAcetam 500 MG TABLET (FP) PO ONE (01:40)
== END 2018-12-17 01:11 | disposition home or self-care (01) ==
LOC: JER 17:29
DX: R10.9 Unspecified abdominal pain (principal); K76.0 Fatty (change of) liver, not elsewhere classified; R94.5 Abnormal results of liver function studies; E83.51 Hypocalcemia; F10.10 Alcohol abuse, uncomplicated
CPT/HCPCS: 36415; 76705-TC; 80053; 81003; 82150; 83605; 83690; 85025; 87086; 99284-25

== ENCOUNTER 2018-12-31 10:17 | Inpatient (IN) | payer OTHER ==
[2018-12-31] MEDS ORDERED: ONDANSETRON 4 MG/2 ML VIAL IVPUSH ONE (11:10)
[2018-12-31] MEDS ORDERED: PANTOPRAZOLE SODIUM 40 MG VIAL IVPUSH ONE (11:10)
[2018-12-31] MEDS ORDERED: SODIUM CHLORIDE 0.9% 1000 ML INFUS.BAG IV ONE (11:10)
[2018-12-31] MEDS ORDERED: OCTREOTIDE ACETATE 50 MCG/1 ML - 1 ML VIAL IVPUSH ONE (11:10)
--- NOTE | 2018-12-31 11:10 | PDOC ---
Documentation entered by Kae Sanchez SCRIBE, acting as scribe for Bernadette Braun MD. Bernadette Braun MD: This documentation has been prepared by the Daniel michael Adrianna, SCRIBE, under my direction and personally reviewed by me in its entirety. I confirm that the documentation accurately reflects all work, treatment, procedures, and medical decision making performed by me. Attending Attestation - Resident Resident Name: Jean Knox - ED Attending Attestation I have performed the following: I have examined & evaluated the patient, The case was reviewed & discussed with the resident, I agree w/resident's findings & plan, Exceptions are as noted - HPI HPI: 12/31/18 11:06 58-year-old male history of alcohol abuse recently admitted and discharged for alcohol withdrawal completed detox here today complaining of nausea vomiting and diarrhea. Patient states he has had several episodes of initially nonbloody nonbilious emesis he then did start having episodes of blood-streaked vomiting yesterday. Patient has had persistent vomiting today but states that he is no longer having bloody emesis. He did however have a loose stool which was dark and then most recently combined with blood. Denies any history of previous GI bleed patient denies known history of cirrhosis however his chart review does reveal prior history of cirrhosis and recently diagnosed liver mass which was concluded to be a hemangioma. Patient states his last drink was 2 weeks ago denies abdominal pain no fevers no chills but is feeling lightheaded and dizzy - Physicial Exam PE: 12/31/18 11:08 Patient is awake alert dry mucous membranes lungs are clear bilaterally heart is regular tachycardia no murmurs rubs or gallops appreciated abdomen is soft there is mild left lower quadrant tenderness to palpation no rebound no guarding rectal exam shows melanotic stool in the vault extremities are warm and well-perfused neurologic the patient is awake alert and oriented x3 but does appear drowsy - Medical Decision Making 12/31/18 11:09 58-year-old male history of liver cirrhosis alcohol abuse here today with bloody emesis which has resolved and now melanotic stools differential includes esophageal gastric variceal bleed diverticular bleed colitis diverticulitis anemia alcohol withdrawal. Plan we will treat with IV hydration antiemetics Protonix type and screen lipase CBC CMP Hemoccult sent. Patient will require admission and consult with gastroenterology placed on CIWA precautions
[2018-12-31] MEDS ORDERED: ONDANSETRON 4 MG/2 ML VIAL ONE (11:27)
[2018-12-31] MEDS ORDERED: PANTOPRAZOLE SODIUM 80 MG/200 ML BAG IVPB ONE (11:27)
--- NOTE | 2018-12-31 12:11 | PDOC ---
History of Present Illness - General Chief Complaint: Nausea/Vomiting Stated Complaint: VOMITING Time Seen by Provider: 12/31/18 10:35 - History of Present Illness Initial Comments: 12/31/18 11:59 This is a 58 year old male with PMH significant for cirrhosis and alcohol abuse who presents with complaints of 4 weeks of abdominal pain and 6 episodes of bloody vomiting yesterday. This morning he had 1 episode of vomiting with mucus and no blood, as well as bloody diarrhea. The abdominal pain is in the LLQ, constant, 10/10 in intensity, described as sharp in quality constant in nature , partially alleviated by lying flat and aggravated by turning over. He was admitted to [facility] 2 weeks ago for alcohol detox, and was sent to [facility] after a fall. He was daignosed with cirrhosis and a hepatic hemangioma. He has had 2-3 beers since his discharge 2 weeks ago. He endorses associated nausea, SOB and a dry cough since Wednesday, but no fevers, chills, headaches, dizziness, palpitations, chest pain, or constipation. Past History - Past Medical History Allergies/Adverse Reactions: Allergies Allergy/AdvReac Type Severity Reaction Status Date / Time No Known Allergies Allergy Verified 12/16/18 18:10 Home Medications: Ambulatory Orders NK [No Known Home Medication] 12/14/18 Anemia: No Asthma: No Cancer: No Cardiac Disorders: No CVA: No COPD: No CHF: No Dementia: No Diabetes: No GI Disorders: No Disorders: No HTN: No Hypercholesterolemia: No Kidney Stones: No Liver Disease: No Seizures: No Thyroid Disease: No Other medical history: substance abuse - Reproductive History Testicular Surgery: No - Immunization History Immunization Up to Date: No - Psycho Social/Smoking Cessation Hx Smoking History: Never smoked Have you smoked in the past 12 months: No Information on smoking cessation initiated: No Hx Alcohol Use: Yes (last drink 2 days ago.) Drug/Substance Use Hx: No Substance Use Type: Alcohol Hx Substance Use Treatment: No Review of Systems - Review of Systems Constitutional: No: Symptoms Reported, See HPI, Chills, Diaphoresis, Fever, Loss of Appetite, Malaise, Night Sweats, Weakness, Weight Stable, Unintentional Wgt. Loss, Unexplained wgt Loss, Other HEENTM: No: Symptoms Reported, See HPI, Eye Pain, Blurred Vision, Tearing, Recent change in vision, Double Vision, Cataracts, Ear Pain, Ocular Prothesis, Ear Discharge, Nose Pain, Nose Congestion, Tinnitus, Nose Bleeding, Hearing Loss , Throat Pain, Throat Swelling, Mouth Pain, Dental Problems, Difficulty Swallowing, Mouth Swelling, Other Respiratory: Yes: Cough, SOB at Rest. No: Symptoms reported, See HPI, Orthopnea , Shortness of Breath, SOB with Exertion, Stridor, Wheezing, Productive cough, Hemoptysis, Other Cardiac (ROS): No: Symptoms Reported, See HPI, Chest Pain, Edema, Irregular Heart Rate, Lightheadedness, Palpitations, Syncope, Chest Tightness, Other ABD/GI: Yes: Nausea, Rectal Bleeding, Vomiting. No: Symptoms Reported, See HPI , Abdominal Distended, Abd. Pain w/ defecation, Blood Streaked Bowels, Constipated, Diarrhea, Difficulty Swallowing, Poor Appetite, Poor Fluid Intake, Indigestion, Abdominal cramping, Tarry Stools, Other Musculoskeletal: No: Symptoms Reported, See HPI, Back Pain, Gout, Joint Pain, Joint Swelling, Muscle Pain, Muscle Weakness, Neck Pain, Joint Stiffness, Other Integumentary: No: Symptoms Reported, See HPI, Bruising, Change in Color, Change in Hair/Nails, Dryness, Erythema, Flushing, Lesions, Lumps, Pallor, Pruritus, Rash, Sweating, Other Neurological: No: Symptoms reported, See HPI, Headache, Numbness, Paresthesia, Pre-Existing Deficit, Seizure, Tingling, Tremors, Weakness, Unsteady Gait, Ataxia, Dizziness, Other Psychiatric: No: Anxiety, Depression, Frequent Crying, Stressors, Sleep Pattern Change, Emotional Problems, Mood Swings, Change in Appetite, Other Endocrine: No: Symptoms Reported, See HPI, Excessive Sweating, Flushing, Intolerance to Cold, Intolerance to Heat, Increased Hunger, Increased Thirst, Increased Urine, Unexplained Weight Gain, Unexplained Weight Loss, Change in Weight, Other *Physical Exam - Vital Signs Last Vital Signs Temp Pulse Resp BP Pulse Ox 98.8 F 115 H 16 120/69 99 12/31/18 10:22 12/31/18 10:22 12/31/18 10:22 12/31/18 10:22 12/31/18 10:22 - Physical Exam Comments: 12/31/18 12:18 General: AOx3 and responsive, but drowsy Oropharynx: Upper lip swollen, dry oral mucosa Eyes: Icteric sclera, MAXIMILIANO, EOM intact Lungs: B/L Clear Heart: Elevated rate, regular rhythm, no murmurs rubs or gallops appreciated Abdomen: Soft, mild tenderness in LLQ, non-distended, normoactive bowel sounds, no rebound tenderness, liver palpated in RUQ, no rebound tenderness, Whitt's negative, CHEY showed melanotic stool in vault Extremities: No edema, warm, well perfused Heart Score/ECG Review - Age Age: 45-65 - ECG Impressions Normal ECG: Yes Non-specific ST Elevation: No Ischemic Changes: No ED Treatment Course - LABORATORY CBC & Chemistry Diagram: 12/31/18 11:45 12/31/18 11:45 Medical Decision Making - Medical Decision Making 12/31/18 12:22 - CBC/CMP - PT/INR - FOBT - Lipase - Type and screen - EKG - Trops - Alcohol level - CT A/P after RFT - Zofran 4mg - Pantoprazole 80mg - N/S 1000cc bolus - Will call GI (Dr. Jackson) after CBC 12/31/18 113:39 - Spoke with Dr. Jackson, suggested adding Levaquin 750 and 2 PRBCs. Will follow recommendations - Admitted to ICU under Dr. Varghese , patient signed out UROLOGIST MD Myles and to Dr. Polo from ICU Discharge - Discharge Information Problems reviewed: Yes Clinical Impression/Diagnosis: Abdominal pain, Hematemesis Condition: Stable - Admission Yes - Follow up/Referral - Patient Discharge Instructions - Post Discharge Activity
[2018-12-31 12:19] LABS: BASO % 0.3 % (0-2.0); EOS % 0.4 % (0-4.5); LYMPH % 8.5 % (8-40); MCH 32.3 pg (25.7-33.7); MEAN CELL VOLUME 97.9 fl (80-96); MEAN PLT VOLUME 9.5 fl (7.5-11.1); MONO % 3.5 % (3.8-10.2); NEUT % 87.3 % (42.8-82.8); PLATELET COUNT 181 K/MM3 (134-434); RBC 1.84 M/mm3 (4.00-5.60); RDW 17.7 % (11.9-15.9); WHITE BLOOD COUNT 19.7 K/mm3 (4.0-10.0)
[2018-12-31] MEDS: OCTREOTIDE ACETATE 200 MCG, OCTREOTIDE ACETATE 1,000 MCG in DEXTROSE 5%-WATER - 496 ML IVPB SCH (12:26)
[2018-12-31 12:27] LABS: HEMOGLOBIN 5.9 GM/dL (11.7-16.9)
[2018-12-31 12:32] LABS: INR 2.41 (0.83-1.09); PROTHROMBIN TIME (PATIENT) 28.7 SEC (9.7-13.0)
[2018-12-31 12:35] LABS: ACTIVATED PTT 42.1 SECONDS (25.2-36.5)
[2018-12-31 12:45] LABS: BILIRUBIN,TOTAL 5.5 mg/dL (0.2-1); BLOOD UREA NITROGEN 26.2 mg/dL (7-18); CALCIUM 7.5 mg/dL (8.5-10.1); CREATININE 0.8 mg/dL (0.55-1.3); POTASSIUM 3.9 mmol/L (3.5-5.1); TOT PROT 6.8 g/dl (6.4-8.2)
[2018-12-31] MEDS ORDERED: PHYTONADIONE 10 MG/1 ML AMP SQ ONE (13:15)
[2018-12-31] MEDS ORDERED: ACETAMINOPHEN 1000 MG/100 ML VIAL (NON FORMULARY) IVPB PRN (13:40)
--- NOTE | 2018-12-31 13:41 | CONSULT ---
Consultation: REQUESTING PROVIDER:ED team CONSULT REQUEST: We have been asked to medically evaluate this patient for (GI bleed ). HISTORY OF PRESENT ILLNESS: This is a 58 year old male with PMH significant for cirrhosis and alcohol abuse who presents with complaints of 4 weeks of abdominal pain and 6 episodes of bloody vomiting yesterday. This morning he had 1 episode of vomiting with mucus and no blood, as well as bloody diarrhea. The abdominal pain is in the LLQ, constant, 10/10 in intensity, described as sharp in quality constant in nature , partially alleviated by lying flat and aggravated by turning over. He was admitted to [facility] 2 weeks ago for alcohol detox, and was sent to [facility] after a fall. He was daignosed with cirrhosis and a hepatic hemangioma. He has had 2-3 beers since his discharge 2 weeks ago. He endorses associated nausea, SOB and a dry cough since Wednesday, but no fevers, chills, headaches, dizziness, palpitations, chest pain, or constipation. 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 daily , and cup of vodka 4-5 time a week, denies nictotin or drug use REVIEW OF SYSTEMS: CONSTITUTIONAL: Absent: fever, chills, diaphoresis, generalized weakness, malaise, loss of appetite, weight change HEENT: Absent: rhinorrhea, nasal congestion, throat pain, throat swelling, difficulty swallowing, mouth swelling, ear pain, eye pain, visual changes CARDIOVASCULAR: Absent: chest pain, syncope, palpitations, irregular heart rate, lightheadedness , peripheral edema RESPIRATORY: Absent: cough, shortness of breath, dyspnea with exertion, orthopnea, wheezing, stridor, hemoptysis GASTROINTESTINAL: Absent: abdominal pain, abdominal distension, nausea, vomiting, diarrhea, constipation, melena, hematochezia GENITOURINARY: Absent: dysuria, frequency, urgency, hesitancy, hematuria, flank pain, genital pain MUSCULOSKELETAL: Absent: myalgia, arthralgia, joint swelling, back pain, neck pain SKIN: Absent: rash, itching, pallor HEMATOLOGIC/IMMUNOLOGIC: Absent: easy bleeding, easy bruising, lymphadenopathy, frequent infections ENDOCRINE: Absent: unexplained weight gain, unexplained weight loss, heat intolerance, cold intolerance NEUROLOGIC: Absent: headache, focal weakness or paresthesias, dizziness, unsteady gait, seizure, mental status changes, bladder or bowel incontinence PSYCHIATRIC: Absent: anxiety, depression, suicidal or homicidal ideation, hallucinations. PHYSICAL EXAMINATION Vital Signs - 24 hr 12/31/18 10:22 Temperature 98.8 F Pulse Rate 115 H Respiratory 16 Rate Blood Pressure 120/69 O2 Sat by Pulse 99 Oximetry (%) GENERAL: Awake, alert, and fully oriented, in no acute distress. HEAD: Normal with no signs of trauma. EYES: Pupils equal, round and reactive to light, extraocular movements intact, sclera icteric, NECK: supple LUNGS: Breath sounds equal, clear to auscultation bilaterally. No wheezes, and no crackles. No accessory muscle use. HEART: Regular rate and rhythm, normal S1 and S2 without murmur, rub or gallop. ABDOMEN: obese Soft, LUQ and LLQ tenderness , distended, normoactive bowel sounds, LOWER EXTREMITIES: 2+ pulses, warm, well-perfused. No calf tenderness. No peripheral edema. NEUROLOGICAL: no focal deficit . Normal speech. PSYCHIATRIC: Cooperative. SKIN: Warm, dry, Laboratory Results - last 24 hr 12/31/18 12/31/18 12/31/18 11:30 11:45 11:45 WBC 19.7 H RBC 1.84 L Hgb 5.9 L* Hct 18.0 L D MCV 97.9 H MCH 32.3 MCHC 33.0 RDW 17.7 H Plt Count 181 D MPV 9.5 Absolute Neuts (auto) 17.2 H Neutrophils % 87.3 H Lymphocytes % 8.5 D Monocytes % 3.5 L Eosinophils % 0.4 Basophils % 0.3 Nucleated RBC % 0 PT with INR INR PTT (Actin FS) Sodium Potassium Chloride Carbon Dioxide Anion Gap BUN Creatinine Est GFR (CKD-EPI)AfAm Est GFR (CKD-EPI)NonAf Random Glucose Calcium Total Bilirubin AST ALT Alkaline Phosphatase Ammonia Creatine Kinase 38 Troponin I < 0.02 Total Protein Albumin Lipase Stool Occult Blood Positive Alcohol, Quantitative Crossmatch 12/31/18 12/31/18 12/31/18 11:45 11:45 11:45 WBC RBC Hgb Hct MCV MCH MCHC RDW Plt Count MPV Absolute Neuts (auto) Neutrophils % Lymphocytes % Monocytes % Eosinophils % Basophils % Nucleated RBC % PT with INR 28.70 H INR 2.41 H PTT (Actin FS) 42.1 H Sodium 141 Potassium 3.9 Chloride 108 H Carbon Dioxide 26 Anion Gap 7 L BUN 26.2 H Creatinine 0.8 Est GFR (CKD-EPI)AfAm 113.33 Est GFR (CKD-EPI)NonAf 97.78 Random Glucose 146 H Calcium 7.5 L Total Bilirubin 5.5 H AST 81 H ALT 21 Alkaline Phosphatase 306 H Ammonia Creatine Kinase Troponin I Total Protein 6.8 Albumin 2.0 L Lipase 86 Stool Occult Blood Alcohol, Quantitative < 3.0 Crossmatch 12/31/18 12/31/18 11:45 11:45 WBC RBC Hgb Hct MCV MCH MCHC RDW Plt Count MPV Absolute Neuts (auto) Neutrophils % Lymphocytes % Monocytes % Eosinophils % Basophils % Nucleated RBC % PT with INR INR PTT (Actin FS) Sodium Potassium Chloride Carbon Dioxide Anion Gap BUN Creatinine Est GFR (CKD-EPI)AfAm Est GFR (CKD-EPI)NonAf Random Glucose Calcium Total Bilirubin AST ALT Alkaline Phosphatase Ammonia 62.30 H Creatine Kinase Troponin I Total Protein Albumin Lipase Stool Occult Blood Alcohol, Quantitative Crossmatch See Detail Active Medications Generic Name Dose Route Start Last Admin Trade Name Freq PRN Reason Stop Dose Admin Octreotide Acetate 200 mcg/ 500 mls @ 20.833 mls/hr 12/31/18 11:15 12/31/18 12:26 Octreotide Acetate 1,000 mcg/ IVPB 20.833 mls/hr Dextrose ASDIR DEVYN Administration Levofloxacin 750 mg in 150 mls @ 100 mls/hr 12/31/18 13:03 Levaquin 750 Mg Premixed Ivpb - IVPB 12/31/18 14:32 ONCE ONE Protocol CBC, BMP 12/31/18 11:45 12/31/18 11:45 CT abdomen/pelvic 12/15/18 1. Cavitary left basilar mass. A follow-up CT scan of the chest is recommended. 2. Findings consistent with cirrhosis, including an enlarged and hypodense liver , splenomegaly, ascites, recanalized umbilical vein and upper abdominal varices. 3. Right and left lobe liver lesions as described above. Sonographic follow-up recommended. 4. No additional evidence of acute pathology within the abdomen or pelvis. Please see above discussion. ASSESSMENT/PLAN: 58 year old male with alcohol use and recent detox presented with 2 days history of hematemesis and melena/ bRBPR and admitted to ICU for GI bleed. # # Acute blood loss anemia # GI bleed likely upper due to esophageal varies or ulcer disease #Decompensated alcoholic liver liver cirrhosis # Coagulpathy, monitor INR # Alcoholic dependence monitor for withdrawal # Leuckocytosis likley reactive # transaminities alcohol type trend # Elevated Bilirubin trend # peripheral neuropathy # Cavitary left basilar mass noted on CT scan from 12/15 follow up out pt * 2 large IV bores * Monitor H/H Q 8hr , maintain Hgb > 7 * normal transfusion threshold * 2 units of blood , can give FFp after that * Vit K SQ 10 * Gi consult Dr Shane * possible EGD today * Keep NPO * IV fluids NS @ 100 CC/hr * hep panel * zofran for nausea * EKG * ICU monitor , BP monitor ,pulse oxy * Hep panel , AFP * monitor for withdrawal symptoms * avoid NSAIDS * follow up CT abdomen * abx prophylaxis levaquin * MELD score 23 , mortality risk in 3 month 19.6 * PPI drip, Octeriotid drip * iron studies , thiamin , folic acid # FEN * RL @ 150 CC/hr * Monitor lytes * NPO * # Proph * PPI drip * SCDS , avoid chemical proph # dispo: monitor in ICU # full code Dispo: We will continue to follow the patient. Thank you for this consultative opportunity. Visit type - Emergency Visit Emergency Visit: Yes ED Registration Date: 12/31/18 Care time: The patient presented to the Emergency Department on the above date and was hospitalized for further evaluation of their emergent condition. - New Patient This patient is new to me today: Yes Date on this admission: 12/31/18 - Critical Care Critical Care patient: Yes Total Critical Care Time (in minutes): 45 Critical Care Statement: The care of this patient involved high complexity decision making to prevent further life threatening deterioration of the patient 's condition and/or to evaluate & treat vital organ system(s) failure or risk of failure. ATTENDING PHYSICIAN STATEMENT I saw and evaluated the patient. I reviewed the resident's note and discussed the case with the resident. I agree with the resident's findings and plan as documented. SUBJECTIVE: OBJECTIVE: ASSESSMENT AND PLAN:
[2018-12-31] MEDS ORDERED: SODIUM CHLORIDE 1,000 ML IV SCH (13:45)
[2018-12-31] MEDS ORDERED: METOCLOPRAMIDE HCL INJECTION 10 MG/2 ML VIAL IVPUSH PRN (14:00)
[2018-12-31] MEDS ORDERED: PANTOPRAZOLE SODIUM 80 MG in SODIUM CHLORIDE 100 ML IVPB SCH (14:30)
--- NOTE | 2018-12-31 14:38 | CON.GI ---
Consult Consult Specialty:: GI Referred by:: Hospitalist Service Reason for Consultation:: Hematemesis - History of Present Illness Chief Complaint: Vomiting blood yesterday History of Present Illness: 58M with history of alcohol abuse presenting for evaluation of hematemesis and vomiting. Patient had multiple episodes of blood vomitus yesterday and non blood vomiting today. He passed dark bowel movements. He was recently seen in the ER here after he was transferred there from [facility] s/p fall. He had CT scan of the abdomen performed revealing two liver lesions and changes consistent with cirrhosis. He was also noted to have abnormal liver chemistries and coagulopathy. He states that he drank heavily for 7 years. With permission from Myriam, I spoke to his uncle Amador Houston ), who is a surgeon at [facility]. Dr. Fonseca explains that Alen has been living in [place] and [facility], recently came back to [place] and has been abusing alcohol for many years. He has never had an upper endoscopy or colonoscopy. There is no family history of liver disease. He is unaware of a diagnosis of cirrhosis or the findings of liver lesions. triage vitals revealed P: 115 BP: 120/69 and he was afebrile. Hgb was 6. Hgb from 12/16 was 9.4. - History Source History Provided By: Patient, Medical Record Limitations to Obtaining History: No Limitations - Past Medical History Psych: Yes: Addictions (Alcoholism) - Past Surgical History Past Surgical History: Yes: None Additional Surgical History: Denies - Alcohol/Substance Use Hx Alcohol Use: Yes (states that he has not drank since being in detox ) History of Substance Use: reports: None - Smoking History Smoking history: Never smoked Have you smoked in the past 12 months: No - Social History Usual Living Arrangement: Alone ADL: Independent Place of : [facility] History of Recent Travel: No Home Medications - Allergies Allergies/Adverse Reactions: Allergies Allergy/AdvReac Type Severity Reaction Status Date / Time No Known Allergies Allergy Verified 12/16/18 18:10 - Home Medications Home Medications: Ambulatory Orders NK [No Known Home Medication] 12/14/18 Family Medical History Other Family History: Father: : 75: Diabetic complications. Mother: : 76: ESRD on HD. 2 sisters. 3 brothers. No children. No family history of liver disease or colon cancer Review of Systems - Review of Systems Cardiovascular: denies: Chest Pain Respiratory: reports: Cough (x 1 week). denies: SOB Gastrointestinal: reports: Abdominal Pain (resolved), Melena, Vomiting, Vomiting Blood Physical Exam-GI Vital Signs: Vital Signs Temperature 98.8 F 12/31/18 10:22 Pulse Rate 115 H 12/31/18 10:22 Respiratory Rate 16 12/31/18 10:22 Blood Pressure 120/69 12/31/18 10:22 O2 Sat by Pulse Oximetry (%) 99 12/31/18 10:22 Constitutional: Yes: Calm Eyes: No: Sclera Icterus Cardiovascular: Yes: Tachycardia. No: Murmur Respiratory: Yes: CTA Bilaterally Gastrointestinal Inspection: No: Distention ...Auscultate: Yes: Normoactive Bowel Sounds ...Palpate: Yes: Hepatomegaly (prominent liver edge), Soft. No: Splenomegaly, Tenderness ...Percussion: No: Tympanitic ...Rectal Exam: Yes: Other (No external lesions, no masses, no blood/melena. trace dark brown soft stool) Edema: No (No LE edema) Neurological: Yes: Alert, Oriented. No: [facility] Labs: CBC, BMP 12/31/18 11:45 12/31/18 11:45 INR, PTT INR 2.41 (0.83-1.09) H 12/31/18 11:45 Hepatic Panel Total Bilirubin 5.5 mg/dL (0.2-1) H 12/31/18 11:45 AST 81 U/L (15-37) H 12/31/18 11:45 ALT 21 U/L (13-61) 12/31/18 11:45 Alkaline Phosphatase 306 U/L (45-117) H 12/31/18 11:45 Albumin 2.0 g/dl (3.4-5.0) L 12/31/18 11:45 Problem List - Problems (1) Hematemesis Assessment/Plan: Given clinical picture, variceal hemorrhage will need to be considered higher in the differential and excluded Decompensated alcoholic liver cirrhosis. Given finding of liver lesions on recent CT scan, HCC needs to be higher in the differential and excluded This was explained to Mr. Miguel in detail. Discussed upper endoscopy with possible banding once resuscitated. Discussed potential risks of the procedure like but not limited to bleeding, perforation requiring surgery to repair, infection, sedation medication effects all of which could be potentially life threatening. Discussed possible need for endotracheal intubation as well. He agreed to the procedure and signed consent was obtained. For now: ICU admission Octreotide infusion. Received bolus in ICU. Continue at 50mcg/hr IV Abx: Levaquin 500mg IVPB daily Protonix infusion at 8mg/hr NPO except meds Large bore IV access Transfuse to keep Hgb around 7-8 Can give FFP after PRBC transfusion Vitamin K 10mg SC once today AFP tumor marker, Hepatitis A/B panel and HCV antibody Patient aware that he is critically ill. Spoke with his Uncle as well regarding the above. Code(s): K92.0 - HEMATEMESIS
[2018-12-31] MEDS ORDERED: PHYTONADIONE 10 MG/1 ML AMP ONE (15:02)
[2018-12-31] MEDS ORDERED: PANTOPRAZOLE SODIUM 40 MG VIAL ONE (15:03)
--- NOTE | 2018-12-31 17:26 | HP ---
Admitting History and Physical - Primary Care Physician PCP: none - Admission Chief Complaint: vomiting blood History of Present Illness: 58 year old M with h/o ETOH abuse (consumes 1/4 vodka and 3 beers daily) presents to ED after 1 day of vomiting blood. Mr. Miguel reports experiencing nausea on the afternoon of 12/30 followed by 5-6 episodes of bloody vomiting. Additional symptoms include abd and chest discomfort, malaise and anorexia. Of note, he completed Detox at [facility] 2 weeks ago but continued to consume alcohol. Pt had an abd CT done 12/18/18 after presenting to ED due to a fall with LOC. CT demonstrated cirrhotic liver and the presence of a hemangioma. Patient denies fever, chills, dizziness, loss of consciousness, sick contacts. Upon awakening on the morning of 12/31, pt states he had loose stool with bright red blood, which prompted him to visit [facility] ED. He had a second epiosde of melena while in ED. FOBT positive. STAT labs: H/H 5.9/18, NH4 level 62.30, Lactate 1.6, INR 2.4. Vitals in ED: BP 120/69mmHg, T 98.8, HR 115bpm, RR 16, O2 sat 99% Pt treated with Zofran 4mg IVP, Protonix 80mg IVP + drip, NS 1L bolus, Ocreotide and Vitamin K GI was consulted emergently and decision made to admit to ICU for continued management while awaiting endoscopy. History Source: Patient Limitations to Obtaining History: No Limitations - Past Medical History Psych: Yes: Addictions (Alcoholism) - Past Surgical History Past Surgical History: Yes: None - Advance Directives Advance Directives: Yes: Health Care Proxy (: Teresa [phone] 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 with his Home Medications - Allergies Allergies/Adverse Reactions: Allergies Allergy/AdvReac Type Severity Reaction Status Date / Time No Known Allergies Allergy Verified 12/16/18 18:10 - Home Medications Home Medications: Ambulatory Orders NK [No Known Home Medication] 12/14/18 Family Medical History Other Family History: M (76) HTN, DMII, ESRD/HD. F (85) DMII. Brother (58) well. Brother (57) well. Sister alive ( 50) HTN. Sister alive (52) ESRD, HTN Review of Systems - Review of Systems Constitutional: reports: Lethargy, Weakness Eyes: reports: No Symptoms HENT: reports: No Symptoms Neck: reports: No Symptoms Cardiovascular: reports: Chest Pain Respiratory: reports: SOB Gastrointestinal: reports: Abdominal Pain, Melena, Nausea, Vomiting Genitourinary: reports: No Symptoms Breasts: reports: No Symptoms Reported Musculoskeletal: reports: No Symptoms Integumentary: reports: No Symptoms Neurological: reports: Weakness Endocrine: reports: No Symptoms Hematology/Lymphatic: reports: No Symptoms Psychiatric: reports: No Symptoms Physical Examination Vital Signs: Vital Signs Temperature 98.5 F 12/31/18 16:39 Pulse Rate 89 12/31/18 16:39 Respiratory Rate 19 12/31/18 16:39 Blood Pressure 100/44 L 12/31/18 16:39 O2 Sat by Pulse Oximetry (%) 100 12/31/18 16:39 Constitutional: Yes: No Distress, Calm Eyes: Yes: EOM Intact, PERRL, Sclera Icterus, Other HENT: Yes: Atraumatic, Normocephalic Neck: Yes: Supple Cardiovascular: Yes: Regular Rate and Rhythm Respiratory: Yes: Regular, CTA Bilaterally Gastrointestinal: Yes: Soft, Abdomen, Obese, Hepatomegaly, Hypoactive Bowel Sounds ...Rectal Exam: Yes: Deferred Musculoskeletal: Yes: Muscle Weakness Extremities: Yes: WNL Edema: No Peripheral Pulses WNL: Yes Peripheral Pulses: Left Radial: 2+, Right Radial: 2+, Left Doralis Pedis: 2+, Right Dorsalis Pedis: 2+ Integumentary: Yes: Jaundice Neurological: Yes: Alert, Oriented, Weakness ...Motor Strength: WNL Psychiatric: Yes: Alert, Oriented Labs: CBC, BMP 12/31/18 11:45 12/31/18 11:45 Imaging - Results Chest X-ray: Report Reviewed (CXr 12/31/2018 Impression : No acute pathology. Better inspiration than 12/15/2018. Reported By: Edmnod Guevara MD 12/31/18 1116) Problem List - Problems (1) GIB (gastrointestinal bleeding) Assessment/Plan: IVF - NS at 75ml.hr PPI infusion NPO for EGD GI consulted and following reglan PRN nausea 2units PRBC followed by repeat CBC to assess the need for further transfusion Problems reviewed: Yes Code(s): K92.2 - GASTROINTESTINAL HEMORRHAGE, UNSPECIFIED (2) Prophylactic measure Assessment/Plan: OOB to chair as tolerated SCDs Code(s): Z29.9 - ENCOUNTER FOR PROPHYLACTIC MEASURES, UNSPECIFIED (3) Cirrhosis of liver Assessment/Plan: vitamin K for INR 2.4, repeat as needed consider FFP for imminent procedures Octreotide infusion trend LFts hepatitis panel/AFP with AM labs Code(s): K74.60 - UNSPECIFIED CIRRHOSIS OF LIVER (4) Hematemesis Assessment/Plan: NPO tranfuse for hgb > 8 monitor for aspiration, pt currently protecting airway Code(s): K92.0 - HEMATEMESIS Assessment/Plan Dispo: admit to ICU code status: Full Visit type - Emergency Visit Emergency Visit: Yes ED Registration Date: 12/31/18 Care time: The patient presented to the Emergency Department on the above date and was hospitalized for further evaluation of their emergent condition. - New Patient This patient is new to me today: Yes Date on this admission: 01/01/19 - Critical Care Critical Care patient: Yes Total Critical Care Time (in minutes): 70 Critical Care Statement: The care of this patient involved high complexity decision making to prevent further life threatening deterioration of the patient 's condition and/or to evaluate & treat vital organ system(s) failure or risk of failure.
[2018-12-31] MEDS ORDERED: MIDAZOLAM HCL 2 MG/2 ML SINGLE DOSE VIAL ONE (18:01)
[2018-12-31] MEDS ORDERED: fentaNYL CITRATE 250 MCG/5 ML VIAL ONE (18:01)
[2018-12-31] MEDS ORDERED: CITRIC ACID/SODIUM CITRATE 30 ML UNIT-DOSE CUP ONE (18:02)
--- NOTE | 2018-12-31 19:18 | PN ---
Progress Note (short form) - Note Progress Note: EGD complete. Report left in procedural section of physical chart and will be scanned into [employer], Mobile Secretary. Problem List - Problems (1) Hematemesis Code(s): K92.0 - HEMATEMESIS
[2018-12-31] MEDS: PROPOFOL 1,000,000 MCG/100 ML VIAL IVPB SCH (19:20)
--- NOTE | 2018-12-31 19:45 | PN ---
Progress Note, Physician Chief Complaint: post edoscopy with [address] GI Dr Shane , official reports pt is intubated and propfol drip for sedation repeat cbc at 8 pm maintain Hgb > 7-8 cont levaquin daily for prophylaxis cont PPI 40 IV BID cont octeriotid drip monitor BP vit q SQdaily for 2 more days nadolol 20 mg daily and titrate to maintain HR 55-[address] Tommy Fonseca to be notified will transfer to [facility] if cont to bleed . - Current Medication List Current Medications: Active Medications Chlorhexidine Gluconate (Hibiclens For Decolonization -) 1 applic TP HS DEVYN Octreotide Acetate 200 mcg/Octreotide Acetate 1,000 mcg/Dextrose 500 mls @ 20.833 mls/hr IVPB ASDIR DEVYN Last Admin: 12/31/18 12:26 Dose: 20.833 mls/hr Sodium Chloride (Normal Saline -) 1,000 mls @ 75 mls/hr IV ASDIR DEVYN Last Admin: 12/31/18 15:55 Dose: 75 mls/hr Levofloxacin (Levaquin 750 Mg Premixed Ivpb -) 750 mg in 150 mls @ 100 mls/hr IVPB ONCE ONE; Protocol Stop: 01/01/19 02:29 Propofol (Diprivan -) 1,000,000 mcg in 100 mls @ 2.844 mls/hr IVPB TITR DEVYN; Protocol Metoclopramide HCl (Reglan Injection -) 10 mg IVPUSH Q6H PRN PRN Reason: NAUSEA AND/OR VOMITING Mupirocin (Bactroban Ointment (For Decolonization) -) 1 applic NS BID DEVYN Stop: 01/05/19 21:59 Pantoprazole Sodium (Protonix Iv) 40 mg IVPUSH BID DEVYN Phytonadione (Aqua Mephyton Injection -) 10 mg SQ ONCE ONE Stop: 01/01/19 10:01 - Objective Vital Signs: Vital Signs Temperature 98.5 F 12/31/18 16:39 Pulse Rate 89 12/31/18 16:39 Respiratory Rate 11 12/31/18 18:50 Blood Pressure 100/44 L 12/31/18 16:39 O2 Sat by Pulse Oximetry (%) 100 12/31/18 16:39 Labs: CBC, BMP 12/31/18 11:45 12/31/18 11:45 INR, PTT INR 2.41 (0.83-1.09) H 12/31/18 11:45
[2018-12-31 20:31] LABS: ARTERIAL BLOOD GAS PCO2 39.9 mmHg (35-45); ARTERIAL BLOOD GAS PO2 96.2 mmHg (80-100)
[2018-12-31 20:32] LABS: ALLENS TEST POSITIVE; ARTERIAL BLD GAS O2 SATURATION 97.2 % (95-98); ARTERIAL BLOOD GAS BASE EXCESS 0.9 meq/l (-2-2)
[2018-12-31 21:27] LABS: BASO % 0.5 % (0-2.0); HEMATOCRIT 20.6 % (35.4-49); LYMPH % 9.4 % (8-40); MCH 32.1 pg (25.7-33.7); MCHC 33.1 g/dl (32.0-35.9); MEAN CELL VOLUME 96.9 fl (80-96); MEAN PLT VOLUME 9.6 fl (7.5-11.1); NEUT % 85.1 % (42.8-82.8); PLATELET COUNT 157 K/MM3 (134-434); RBC 2.13 M/mm3 (4.00-5.60); RDW 16.4 % (11.9-15.9); WHITE BLOOD COUNT 15.2 K/mm3 (4.0-10.0)
[2018-12-31 21:38] LABS: HEMOGLOBIN 6.8 GM/dL (11.7-16.9)
[2018-12-31 21:59] LABS: BILIRUBIN,TOTAL 5.6 mg/dL (0.2-1); CREATININE 0.7 mg/dL (0.55-1.3); TOT PROT 6.3 g/dl (6.4-8.2)
[2018-12-31 22:03] LABS: CALCIUM 6.9 mg/dL (8.5-10.1)
[2018-12-31] MEDS ORDERED: PNEUMOC 13-VAL CONJ-DIP CRM/PF 0.5 ML DISP.SYRIN IM ONE (22:11)
[2018-12-31] MEDS ORDERED: FLU VACCINE QUAD 60 MCG/0.5 ML (MDV 19-20) IM ONE (22:11)
[2018-12-31] MEDS: MUPIROCIN 2% TOPICAL OINTMENT FOR DECOLONIZATION NS SCH (22:30)
[2018-12-31] MEDS ORDERED: PNEUMOCOCCAL 23 VACCINE 0.5 ML VIAL IM ONE (22:30)
[2018-12-31] MEDS: CHLORHEXIDINE GLUCONATE 4% CLEANSER FOR DECOLONIZATION TP SCH (22:31)
[2018-12-31] MEDS: PANTOPRAZOLE SODIUM 40 MG VIAL IVPUSH SCH (22:31)
[2018-12-31] MEDS ORDERED: MIDAZOLAM HCL 2 MG/2 ML SINGLE DOSE VIAL IVPUSH ONE (23:16)
[2019-01-01 04:09] LABS: HEMATOCRIT 19.5 % (35.4-49); MCH 31.9 pg (25.7-33.7); MCHC 33.8 g/dl (32.0-35.9); MEAN CELL VOLUME 94.6 fl (80-96); MEAN PLT VOLUME 9.6 fl (7.5-11.1); PLATELET COUNT 138 K/MM3 (134-434); RBC 2.06 M/mm3 (4.00-5.60); RDW 17.4 % (11.9-15.9); WHITE BLOOD COUNT 11.3 K/mm3 (4.0-10.0)
[2019-01-01 04:12] LABS: HEMOGLOBIN 6.6 GM/dL (11.7-16.9)
[2019-01-01 08:02] LABS: HEMATOCRIT 20.8 % (35.4-49); HEMOGLOBIN 7.1 GM/dL (11.7-16.9); MCH 32.4 pg (25.7-33.7); MCHC 34.2 g/dl (32.0-35.9); MEAN CELL VOLUME 94.7 fl (80-96); MEAN PLT VOLUME 8.9 fl (7.5-11.1); PLATELET COUNT 144 K/MM3 (134-434); RBC 2.19 M/mm3 (4.00-5.60); RDW 17.3 % (11.9-15.9); WHITE BLOOD COUNT 11.4 K/mm3 (4.0-10.0)
[2019-01-01 08:20] LABS: INR 2.09 (0.83-1.09); PROTHROMBIN TIME (PATIENT) 24.9 SEC (9.7-13.0)
[2019-01-01 08:23] LABS: ACTIVATED PTT 42.3 SECONDS (25.2-36.5)
[2019-01-01 08:37] LABS: ALBUMIN 1.8 g/dl (3.4-5.0); BILIRUBIN,TOTAL 4.8 mg/dL (0.2-1); BLOOD UREA NITROGEN 18.5 mg/dL (7-18); CREATININE 0.8 mg/dL (0.55-1.3); MAGNESIUM 1.9 mg/dL (1.8-2.4); N-TERMINAL BNP 118.2 pg/ml (5-125); PHOSPHOROUS 2.3 mg/dL (2.5-4.9); POTASSIUM 3.8 mmol/L (3.5-5.1)
--- NOTE | 2019-01-01 09:00 | PN ---
Physical Exam: SUBJECTIVE: Patient seen and examined; intubated and sedated in ICU. Discussed case with PCCM team and GI consulting service. S/P banding POD1. Remains critically ill in the ICU due to tenuous status from variceal bleed. Intubated for airway protection. 10 sys ROS couldnt be done as intubated and sedated. OBJECTIVE: Vital Signs Period Temp Pulse Resp BP Sys/Taveras Pulse Ox Last 24 Hr 97 F-98.8 F 74-115 11-20 90-180/44-90 92-100 VS, labs, and diagnostics reviewed. All imagign and consults reviewed. Intubated and sedated with RASS 3, WD to pain, ? to verbal but was without holiday NC AT EOMI PERRLA RRR s1/2 NT ND +BS CN2-12 wnl, +2 DTRs UE, normal tone Skin without rashes or breakdown Trachea midline, no LN Cannot assess psych Lungs with vent associate breath sounds but no focal consolidation Laboratory Results - last 24 hr 12/31/18 12/31/18 12/31/18 11:30 11:45 11:45 WBC 19.7 H RBC 1.84 L Hgb 5.9 L* Hct 18.0 L D MCV 97.9 H MCH 32.3 MCHC 33.0 RDW 17.7 H Plt Count 181 D MPV 9.5 Absolute Neuts (auto) 17.2 H Neutrophils % 87.3 H Lymphocytes % 8.5 D Monocytes % 3.5 L Eosinophils % 0.4 Basophils % 0.3 Nucleated RBC % 0 PT with INR INR PTT (Actin FS) Anticoagulation Therapy Puncture Site ABG pH ABG pCO2 at Pt Temp ABG pO2 at Pt Temp ABG HCO3 ABG O2 Sat (Measured) ABG O2 Content ABG Base Excess James Test O2 Delivery Device Oxygen Flow Rate Vent Mode Vent Rate Mechanical Rate Pressure Support Vent Sodium Potassium Chloride Carbon Dioxide Anion Gap BUN Creatinine Est GFR (CKD-EPI)AfAm Est GFR (CKD-EPI)NonAf Random Glucose Lactic Acid Calcium Phosphorus Magnesium Total Bilirubin AST ALT Alkaline Phosphatase Ammonia Creatine Kinase 38 Troponin I < 0.02 B-Natriuretic Peptide Total Protein Albumin Lipase TSH Stool Occult Blood Positive Alcohol, Quantitative Blood Type Antibody Screen Crossmatch 12/31/18 12/31/18 12/31/18 11:45 11:45 11:45 WBC RBC Hgb Hct MCV MCH MCHC RDW Plt Count MPV Absolute Neuts (auto) Neutrophils % Lymphocytes % Monocytes % Eosinophils % Basophils % Nucleated RBC % PT with INR 28.70 H INR 2.41 H PTT (Actin FS) 42.1 H Anticoagulation Therapy Puncture Site ABG pH ABG pCO2 at Pt Temp ABG pO2 at Pt Temp ABG HCO3 ABG O2 Sat (Measured) ABG O2 Content ABG Base Excess James Test O2 Delivery Device Oxygen Flow Rate Vent Mode Vent Rate Mechanical Rate Pressure Support Vent Sodium 141 Potassium 3.9 Chloride 108 H Carbon Dioxide 26 Anion Gap 7 L BUN 26.2 H Creatinine 0.8 Est GFR (CKD-EPI)AfAm 113.33 Est GFR (CKD-EPI)NonAf 97.78 Random Glucose 146 H Lactic Acid Calcium 7.5 L Phosphorus Magnesium Total Bilirubin 5.5 H AST 81 H ALT 21 Alkaline Phosphatase 306 H Ammonia Creatine Kinase Troponin I B-Natriuretic Peptide Total Protein 6.8 Albumin 2.0 L Lipase 86 TSH Stool Occult Blood Alcohol, Quantitative < 3.0 Blood Type Antibody Screen Crossmatch 12/31/18 12/31/18 12/31/18 11:45 11:45 20:00 WBC RBC Hgb Hct MCV MCH MCHC RDW Plt Count MPV Absolute Neuts (auto) Neutrophils % Lymphocytes % Monocytes % Eosinophils % Basophils % Nucleated RBC % PT with INR INR PTT (Actin FS) 41.4 H Anticoagulation Therapy Puncture Site ABG pH ABG pCO2 at Pt Temp ABG pO2 at Pt Temp ABG HCO3 ABG O2 Sat (Measured) ABG O2 Content ABG Base Excess James Test O2 Delivery Device Oxygen Flow Rate Vent Mode Vent Rate Mechanical Rate Pressure Support Vent Sodium Potassium Chloride Carbon Dioxide Anion Gap BUN Creatinine Est GFR (CKD-EPI)AfAm Est GFR (CKD-EPI)NonAf Random Glucose Lactic Acid Calcium Phosphorus Magnesium Total Bilirubin AST ALT Alkaline Phosphatase Ammonia 62.30 H Creatine Kinase Troponin I B-Natriuretic Peptide Total Protein Albumin Lipase TSH Stool Occult Blood Alcohol, Quantitative Blood Type O POSITIVE Antibody Screen Negative Crossmatch See Detail 12/31/18 12/31/18 12/31/18 20:00 20:00 20:00 WBC 15.2 H RBC 2.13 L Hgb 6.8 L* Hct 20.6 L MCV 96.9 H MCH 32.1 MCHC 33.1 RDW 16.4 H Plt Count 157 MPV 9.6 Absolute Neuts (auto) 12.9 H Neutrophils % 85.1 H Lymphocytes % 9.4 Monocytes % 4.0 Eosinophils % 1.0 D Basophils % 0.5 Nucleated RBC % 0 PT with INR INR PTT (Actin FS) Anticoagulation Therapy Puncture Site ABG pH ABG pCO2 at Pt Temp ABG pO2 at Pt Temp ABG HCO3 ABG O2 Sat (Measured) ABG O2 Content ABG Base Excess James Test O2 Delivery Device Oxygen Flow Rate Vent Mode Vent Rate Mechanical Rate Pressure Support Vent Sodium 144 Potassium 4.0 Chloride 111 H Carbon Dioxide 25 Anion Gap 8 BUN 22.0 H Creatinine 0.7 Est GFR (CKD-EPI)AfAm 119.72 Est GFR (CKD-EPI)NonAf 103.30 Random Glucose 131 H Lactic Acid Calcium 6.9 L* Phosphorus Magnesium Total Bilirubin 5.6 H AST 76 H ALT 20 Alkaline Phosphatase 271 H Ammonia 86.30 H Creatine Kinase Troponin I B-Natriuretic Peptide Total Protein 6.3 L Albumin 2.0 L Lipase TSH Stool Occult Blood Alcohol, Quantitative Blood Type Antibody Screen Crossmatch 12/31/18 12/31/18 01/01/19 20:00 20:20 03:36 WBC 11.3 H RBC 2.06 L Hgb 6.6 L* Hct 19.5 L MCV 94.6 MCH 31.9 MCHC 33.8 RDW 17.4 H Plt Count 138 MPV 9.6 Absolute Neuts (auto) Neutrophils % Lymphocytes % Monocytes % Eosinophils % Basophils % Nucleated RBC % PT with INR INR PTT (Actin FS) Anticoagulation Therapy No Result Required. Puncture Site Left radial ABG pH 7.40 ABG pCO2 at Pt Temp 39.9 ABG pO2 at Pt Temp 96.2 ABG HCO3 25 ABG O2 Sat (Measured) 97.2 ABG O2 Content No Result Required. ABG Base Excess 0.9 James Test Positive O2 Delivery Device No Result Required. Oxygen Flow Rate Vent Vent Mode No Result Required. Vent Rate No Result Required. Mechanical Rate No Result Required. Pressure Support Vent No Result Required. Sodium Potassium Chloride Carbon Dioxide Anion Gap BUN Creatinine Est GFR (CKD-EPI)AfAm Est GFR (CKD-EPI)NonAf Random Glucose Lactic Acid 1.6 Calcium Phosphorus Magnesium Total Bilirubin AST ALT Alkaline Phosphatase Ammonia Creatine Kinase Troponin I B-Natriuretic Peptide Total Protein Albumin Lipase TSH Stool Occult Blood Alcohol, Quantitative Blood Type Antibody Screen Crossmatch 01/01/19 01/01/19 01/01/19 06:18 06:18 06:18 WBC 11.4 H RBC 2.19 L Hgb 7.1 L Hct 20.8 L MCV 94.7 MCH 32.4 MCHC 34.2 RDW 17.3 H Plt Count 144 MPV 8.9 Absolute Neuts (auto) Neutrophils % Lymphocytes % Monocytes % Eosinophils % Basophils % Nucleated RBC % PT with INR 24.90 H INR 2.09 H PTT (Actin FS) 42.3 H Anticoagulation Therapy Puncture Site ABG pH ABG pCO2 at Pt Temp ABG pO2 at Pt Temp ABG HCO3 ABG O2 Sat (Measured) ABG O2 Content ABG Base Excess James Test O2 Delivery Device Oxygen Flow Rate Vent Mode Vent Rate Mechanical Rate Pressure Support Vent Sodium 146 H Potassium 3.8 Chloride 112 H Carbon Dioxide 26 Anion Gap 7 L BUN 18.5 H Creatinine 0.8 Est GFR (CKD-EPI)AfAm 113.33 Est GFR (CKD-EPI)NonAf 97.78 Random Glucose 120 H Lactic Acid Calcium Phosphorus 2.3 L Magnesium 1.9 Total Bilirubin 4.8 H AST 66 H ALT 18 Alkaline Phosphatase 248 H Ammonia Creatine Kinase Troponin I B-Natriuretic Peptide 118.2 Total Protein 6.0 L Albumin 1.8 L Lipase TSH 0.36 Stool Occult Blood Alcohol, Quantitative Blood Type Antibody Screen Crossmatch Active Medications Generic Name Dose Route Start Last Admin Trade Name Freq PRN Reason Stop Dose Admin Chlorhexidine Gluconate 1 applic 12/31/18 22:00 12/31/18 22:31 Hibiclens For Decolonization - TP 1 applic HS DEVYN Administration Octreotide Acetate 200 mcg/ 500 mls @ 20.833 mls/hr 12/31/18 11:15 12/31/18 12:26 Octreotide Acetate 1,000 mcg/ IVPB 20.833 mls/hr Dextrose ASDIR DEVYN Administration Sodium Chloride 1,000 mls @ 75 mls/hr 12/31/18 13:45 12/31/18 15:55 Normal Saline - IV 75 mls/hr ASDIR DEVYN Administration Propofol 1,000,000 mcg in 100 mls @ 2.844 mls/hr 12/31/18 19:45 12/31/18 22: 00 Diprivan - IVPB 50 mcg/kg/min TITR DEVYN 28.44 mls/hr Titration Protocol 5 MCG/KG/MIN Metoclopramide HCl 10 mg 12/31/18 14:00 Reglan Injection - IVPUSH Q6H PRN NAUSEA AND/OR VOMITING Mupirocin 1 applic 12/31/18 22:00 12/31/18 22:30 Bactroban Ointment (For Decolonization) - NS 01/05/19 21:59 1 applic BID DEVYN Administration Pantoprazole Sodium 40 mg 12/31/18 22:00 12/31/18 22:31 Protonix Iv IVPUSH 40 mg BID DEVYN Administration Phytonadione 10 mg 01/01/19 10:00 Aqua Mephyton Injection - SQ 01/01/19 10:01 ONCE ONE ASSESSMENT/PLAN: Patient presents with hemorrhagic shock secondary to acute blood loss anemia due to variceal bleed from underlying cirrhosis with coagulopathy. GI, PCCM, and hematology following. S/P banding, vitamin K/FFP. Hb up this AM 7.1 (6.6, 6.8) with corresponding crit climb. Is s/p XF and continuing to cycle and will XF if continues to bleed as would benefit from tertiary referral. Electrolyte abnormalities noted and repleted aggressively. Bili down to 4.8 from 5.6 and alk phos trending down to 248. NH4 elevated-cannot assess for asterixis as elevated RASS on propofol but will likely need lactulose supplementation in future. Profound hypoalbuminemia noted at 03/29 with prealbumin pending; AFP ordered by GI is pending. MELD +Na is 21 which places him at a 7-10% chance of 90-day mortality. His prognosis is tenuous and he remains in the ICU for frequent monitoring and possible further emergency procedural intervention. If he continues to improve and clear with GI start process of extubation. Will continue nadolol, continue sandostatin, continue IV PPI. 70 minutes spent in the ongoing care of this patient. Reaching out to family to discuss goals of care. Problems include: -Hemorrhagic Shock 2/2 Upper GIB -Variceal Bleed s/p banding POD1 -Cirrhosis of the liver -Severe coagulopathy likely 2/2 cirrhosis -Transaminitis -Severe hypoalbuminemia -Hypophosphatemia -Hypernatremia, hyperchloremia (changing to LR from NS) -S/P intubation (for airway protection done periprocedurally) Consulting services: GI, PCCM, Hematology Full Code Visit type - Emergency Visit Emergency Visit: Yes ED Registration Date: 12/31/18 Care time: The patient presented to the Emergency Department on the above date and was hospitalized for further evaluation of their emergent condition. - New Patient This patient is new to me today: Yes Date on this admission: 01/01/19 - Critical Care Critical Care patient: No
[2019-01-01 09:07] LABS: CALCIUM 6.9 mg/dL (8.5-10.1)
[2019-01-01] MEDS ORDERED: NITROGLYCERIN SUBLINGUAL 1/200 0.3 MG BTL SL ONE (09:15)
[2019-01-01] MEDS: PANTOPRAZOLE SODIUM 40 MG VIAL IVPUSH SCH ×2 (09:23→21:48)
[2019-01-01] MEDS: MUPIROCIN 2% TOPICAL OINTMENT FOR DECOLONIZATION NS SCH ×2 (09:29→21:48)
[2019-01-01] MEDS: PROPOFOL 1,000,000 MCG/100 ML VIAL IVPB SCH (09:29)
[2019-01-01] MEDS ORDERED: LACTATED RINGERS SOLUTION 1,000 ML/1,000 ML INFUS.BAG IV SCH (09:30)
[2019-01-01] MEDS ORDERED: PHYTONADIONE 10 MG/1 ML AMP SQ ONE (10:00)
[2019-01-01] MEDS ORDERED: PROPOFOL 1,000,000 MCG/100 ML VIAL ONE (10:16)
--- NOTE | 2019-01-01 10:24 | PN ---
Teaching Attending Note Name of Resident: Cely Graff ATTENDING PHYSICIAN STATEMENT I saw and evaluated the patient. I reviewed the resident's note and discussed the case with the resident. I agree with the resident's findings and plan as documented. SUBJECTIVE: Patient seen and examined in the ICU. Intubated and sedated. AC Mode of vent. S/P banding of varices yesterday. No occult bleeding noted overnight. Intake & Output 12/29/18 12/30/18 12/31/18 01/01/19 23:59 23:59 23:59 23:59 Intake Total 850 1700 Output Total 1000 Balance 850 700 Weight 204 lb 204 lb Last Vital Signs Temp Pulse Resp BP Pulse Ox 98.5 F 80 20 100/56 L 100 01/01/19 10:00 01/01/19 10:00 01/01/19 10:00 01/01/19 10:00 01/01/19 08:48 Active Medications Chlorhexidine Gluconate (Hibiclens For Decolonization -) 1 applic TP HS DEVYN Last Admin: 12/31/18 22:31 Dose: 1 applic Octreotide Acetate 200 mcg/Octreotide Acetate 1,000 mcg/Dextrose 500 mls @ 20.833 mls/hr IVPB ASDIR DEVYN Last Admin: 12/31/18 12:26 Dose: 20.833 mls/hr Propofol (Diprivan -) 1,000,000 mcg in 100 mls @ 2.844 mls/hr IVPB TITR DEVYN; Protocol Last Admin: 01/01/19 09:29 Dose: 50 mcg/kg/min, 28.44 mls/hr Lactated Ringer's (Lactated Ringers Solution) 1,000 ml in 1,000 mls @ 100 mls/ hr IV ASDIR DEVYN Metoclopramide HCl (Reglan Injection -) 10 mg IVPUSH Q6H PRN PRN Reason: NAUSEA AND/OR VOMITING Mupirocin (Bactroban Ointment (For Decolonization) -) 1 applic NS BID REPLACED BY [facility] Stop: 01/05/19 21:59 Last Admin: 01/01/19 09:29 Dose: 1 applic Pantoprazole Sodium (Protonix Iv) 40 mg IVPUSH BID REPLACED BY [facility] Last Admin: 01/01/19 09:23 Dose: 40 mg GENERAL: Intubated and sedated HEAD: Normal with no signs of trauma. EYES: Pupils equal, round and reactive to light, sclera icteric, NECK: supple LUNGS: Breath sounds equal, clear to auscultation bilaterally. No wheezes, and no crackles. No accessory muscle use. HEART: Regular rate and rhythm, normal S1 and S2 without murmur, rub or gallop. ABDOMEN: obese Soft, not distended, (+) bowel sounds LOWER EXTREMITIES: 2+ pulses, warm, well-perfused. No calf tenderness. No peripheral edema. NEUROLOGICAL: sedated PSYCHIATRIC: sedated SKIN: Warm, dry, Laboratory Results - last 24 hr 12/31/18 12/31/18 12/31/18 11:30 11:45 11:45 WBC 19.7 H RBC 1.84 L Hgb 5.9 L* Hct 18.0 L D MCV 97.9 H MCH 32.3 MCHC 33.0 RDW 17.7 H Plt Count 181 D MPV 9.5 Absolute Neuts (auto) 17.2 H Neutrophils % 87.3 H Lymphocytes % 8.5 D Monocytes % 3.5 L Eosinophils % 0.4 Basophils % 0.3 Nucleated RBC % 0 PT with INR INR PTT (Actin FS) Anticoagulation Therapy Puncture Site ABG pH ABG pCO2 at Pt Temp ABG pO2 at Pt Temp ABG HCO3 ABG O2 Sat (Measured) ABG O2 Content ABG Base Excess James Test O2 Delivery Device Oxygen Flow Rate Vent Mode Vent Rate Mechanical Rate Pressure Support Vent Sodium Potassium Chloride Carbon Dioxide Anion Gap BUN Creatinine Est GFR (CKD-EPI)AfAm Est GFR (CKD-EPI)NonAf Random Glucose Lactic Acid Calcium Phosphorus Magnesium Total Bilirubin AST ALT Alkaline Phosphatase Ammonia Creatine Kinase 38 Troponin I < 0.02 B-Natriuretic Peptide Total Protein Albumin Lipase TSH Stool Occult Blood Positive Alcohol, Quantitative Blood Type Antibody Screen Crossmatch 12/31/18 12/31/18 12/31/18 11:45 11:45 11:45 WBC RBC Hgb Hct MCV MCH MCHC RDW Plt Count MPV Absolute Neuts (auto) Neutrophils % Lymphocytes % Monocytes % Eosinophils % Basophils % Nucleated RBC % PT with INR 28.70 H INR 2.41 H PTT (Actin FS) 42.1 H Anticoagulation Therapy Puncture Site ABG pH ABG pCO2 at Pt Temp ABG pO2 at Pt Temp ABG HCO3 ABG O2 Sat (Measured) ABG O2 Content ABG Base Excess James Test O2 Delivery Device Oxygen Flow Rate Vent Mode Vent Rate Mechanical Rate Pressure Support Vent Sodium 141 Potassium 3.9 Chloride 108 H Carbon Dioxide 26 Anion Gap 7 L BUN 26.2 H Creatinine 0.8 Est GFR (CKD-EPI)AfAm 113.33 Est GFR (CKD-EPI)NonAf 97.78 Random Glucose 146 H Lactic Acid Calcium 7.5 L Phosphorus Magnesium Total Bilirubin 5.5 H AST 81 H ALT 21 Alkaline Phosphatase 306 H Ammonia Creatine Kinase Troponin I B-Natriuretic Peptide Total Protein 6.8 Albumin 2.0 L Lipase 86 TSH Stool Occult Blood Alcohol, Quantitative < 3.0 Blood Type Antibody Screen Crossmatch 12/31/18 12/31/18 12/31/18 11:45 11:45 20:00 WBC RBC Hgb Hct MCV MCH MCHC RDW Plt Count MPV Absolute Neuts (auto) Neutrophils % Lymphocytes % Monocytes % Eosinophils % Basophils % Nucleated RBC % PT with INR INR PTT (Actin FS) 41.4 H Anticoagulation Therapy Puncture Site ABG pH ABG pCO2 at Pt Temp ABG pO2 at Pt Temp ABG HCO3 ABG O2 Sat (Measured) ABG O2 Content ABG Base Excess James Test O2 Delivery Device Oxygen Flow Rate Vent Mode Vent Rate Mechanical Rate Pressure Support Vent Sodium Potassium Chloride Carbon Dioxide Anion Gap BUN Creatinine Est GFR (CKD-EPI)AfAm Est GFR (CKD-EPI)NonAf Random Glucose Lactic Acid Calcium Phosphorus Magnesium Total Bilirubin AST ALT Alkaline Phosphatase Ammonia 62.30 H Creatine Kinase Troponin I B-Natriuretic Peptide Total Protein Albumin Lipase TSH Stool Occult Blood Alcohol, Quantitative Blood Type O POSITIVE Antibody Screen Negative Crossmatch See Detail 12/31/18 12/31/18 12/31/18 20:00 20:00 20:00 WBC 15.2 H RBC 2.13 L Hgb 6.8 L* Hct 20.6 L MCV 96.9 H MCH 32.1 MCHC 33.1 RDW 16.4 H Plt Count 157 MPV 9.6 Absolute Neuts (auto) 12.9 H Neutrophils % 85.1 H Lymphocytes % 9.4 Monocytes % 4.0 Eosinophils % 1.0 D Basophils % 0.5 Nucleated RBC % 0 PT with INR INR PTT (Actin FS) Anticoagulation Therapy Puncture Site ABG pH ABG pCO2 at Pt Temp ABG pO2 at Pt Temp ABG HCO3 ABG O2 Sat (Measured) ABG O2 Content ABG Base Excess James Test O2 Delivery Device Oxygen Flow Rate Vent Mode Vent Rate Mechanical Rate Pressure Support Vent Sodium 144 Potassium 4.0 Chloride 111 H Carbon Dioxide 25 Anion Gap 8 BUN 22.0 H Creatinine 0.7 Est GFR (CKD-EPI)AfAm 119.72 Est GFR (CKD-EPI)NonAf 103.30 Random Glucose 131 H Lactic Acid Calcium 6.9 L* Phosphorus Magnesium Total Bilirubin 5.6 H AST 76 H ALT 20 Alkaline Phosphatase 271 H Ammonia 86.30 H Creatine Kinase Troponin I B-Natriuretic Peptide Total Protein 6.3 L Albumin 2.0 L Lipase TSH Stool Occult Blood Alcohol, Quantitative Blood Type Antibody Screen Crossmatch 12/31/18 12/31/18 01/01/19 20:00 20:20 03:36 WBC 11.3 H RBC 2.06 L Hgb 6.6 L* Hct 19.5 L MCV 94.6 MCH 31.9 MCHC 33.8 RDW 17.4 H Plt Count 138 MPV 9.6 Absolute Neuts (auto) Neutrophils % Lymphocytes % Monocytes % Eosinophils % Basophils % Nucleated RBC % PT with INR INR PTT (Actin FS) Anticoagulation Therapy No Result Required. Puncture Site Left radial ABG pH 7.40 ABG pCO2 at Pt Temp 39.9 ABG pO2 at Pt Temp 96.2 ABG HCO3 25 ABG O2 Sat (Measured) 97.2 ABG O2 Content No Result Required. ABG Base Excess 0.9 James Test Positive O2 Delivery Device No Result Required. Oxygen Flow Rate Vent Vent Mode No Result Required. Vent Rate No Result Required. Mechanical Rate No Result Required. Pressure Support Vent No Result Required. Sodium Potassium Chloride Carbon Dioxide Anion Gap BUN Creatinine Est GFR (CKD-EPI)AfAm Est GFR (CKD-EPI)NonAf Random Glucose Lactic Acid 1.6 Calcium Phosphorus Magnesium Total Bilirubin AST ALT Alkaline Phosphatase Ammonia Creatine Kinase Troponin I B-Natriuretic Peptide Total Protein Albumin Lipase TSH Stool Occult Blood Alcohol, Quantitative Blood Type Antibody Screen Crossmatch 01/01/19 01/01/19 01/01/19 06:18 06:18 06:18 WBC 11.4 H RBC 2.19 L Hgb 7.1 L Hct 20.8 L MCV 94.7 MCH 32.4 MCHC 34.2 RDW 17.3 H Plt Count 144 MPV 8.9 Absolute Neuts (auto) Neutrophils % Lymphocytes % Monocytes % Eosinophils % Basophils % Nucleated RBC % PT with INR 24.90 H INR 2.09 H PTT (Actin FS) 42.3 H Anticoagulation Therapy Puncture Site ABG pH ABG pCO2 at Pt Temp ABG pO2 at Pt Temp ABG HCO3 ABG O2 Sat (Measured) ABG O2 Content ABG Base Excess James Test O2 Delivery Device Oxygen Flow Rate Vent Mode Vent Rate Mechanical Rate Pressure Support Vent Sodium 146 H Potassium 3.8 Chloride 112 H Carbon Dioxide 26 Anion Gap 7 L BUN 18.5 H Creatinine 0.8 Est GFR (CKD-EPI)AfAm 113.33 Est GFR (CKD-EPI)NonAf 97.78 Random Glucose 120 H Lactic Acid Calcium 6.9 L* Phosphorus 2.3 L Magnesium 1.9 Total Bilirubin 4.8 H AST 66 H ALT 18 Alkaline Phosphatase 248 H Ammonia Creatine Kinase Troponin I B-Natriuretic Peptide 118.2 Total Protein 6.0 L Albumin 1.8 L Lipase TSH 0.36 Stool Occult Blood Alcohol, Quantitative Blood Type Antibody Screen Crossmatch ASSESSMENT/PLAN: Acute Respiratory Failure S/P variceal banding Alcohol abuse Recent detox Hematemesis Melena GI bleed Acute blood loss anemia Decompensated alcoholic liver liver cirrhosis Coagulpathy Leuckocytosis likely reactive Transaminities Peripheral neuropathy Cavitary left basilar mass noted on CT scan from 12/15 DC sedation and wean trials once awake Follow H & H Normal transfusion thresholds FFP Vitamin K NPO IVF Mechanical VTE prophylaxis Maintain large bore IV x 2 Once extubated, monitor for withdrawal Requires ICU monitoring Dr Hernandez Critical care time spent in reviewing chart, evaluating patient and formulating plan - 36 minutes.
[2019-01-01 10:34] LABS: BASO % 0.6 % (0-2.0); EOS % 3.3 % (0-4.5); HEMATOCRIT 23.5 % (35.4-49); LYMPH % 10.5 % (8-40); MCH 32.2 pg (25.7-33.7); MCHC 34.2 g/dl (32.0-35.9); MEAN CELL VOLUME 94.3 fl (80-96); MEAN PLT VOLUME 8.7 fl (7.5-11.1); MONO % 4.3 % (3.8-10.2); NEUT % 81.3 % (42.8-82.8); PLATELET COUNT 136 K/MM3 (134-434); RBC 2.49 M/mm3 (4.00-5.60); RDW 17.5 % (11.9-15.9); WHITE BLOOD COUNT 11.6 K/mm3 (4.0-10.0)
--- NOTE | 2019-01-01 10:36 | PN.GI ---
GI Progress Note Subjective: No melena, no hematemesis reported Hgb 6.6 at 3 AM. Given 2 more U PRBC. Hgb 7.1 this morn - Objective Vital Signs: Vital Signs Temperature 98.5 F 01/01/19 10:00 Pulse Rate 80 01/01/19 10:00 Respiratory Rate 20 01/01/19 10:00 Blood Pressure 100/56 L 01/01/19 10:00 O2 Sat by Pulse Oximetry (%) 100 01/01/19 08:48 Constitutional: Calm, Other (On vent) Eyes: Yes: Sclera Icterus Cardiovascular: Yes: Regular Rate and Rhythm Respiratory: Yes: Diminished (at bases bilaterally) Gastrointestinal Inspection: No: Distention ...Auscultate: Yes: Normoactive Bowel Sounds ...Palpate: Yes: Soft. No: Tenderness (No grimacing upon palpation) ...Percussion: No: Tympanitic Neurological: Yes: Other (Intubated on Vent) Labs: CBC, BMP 01/01/19 06:18 INR, PTT INR 2.09 (0.83-1.09) H 01/01/19 06:18 Problem List - Problems (1) Varices of esophagus determined by endoscopy Assessment/Plan: With stigmata. Varix in the distal esophagus began actively bleeding during procedure. S/P EVL x 4. No overt bleeding. Suspect patient's initial Hgb lower than noted at presentation. OK for extubation Continue Octreotide infusion Protonix 40mg IV BID Levaquin 500mg daily Follow-up AFP tumor marker, hepatitis serologies Monitor LFTs / coags. Vitamin K redosed today. 10mg SC tomorrow as well (ordered ) Discussed findings with Mr. Miguel's uncle Dr. Urban last night Guarded prognosis Problems reviewed: Yes Code(s): I85.00 - ESOPHAGEAL VARICES WITHOUT BLEEDING
[2019-01-01] MEDS: OCTREOTIDE ACETATE 200 MCG, OCTREOTIDE ACETATE 1,000 MCG in DEXTROSE 5%-WATER - 496 ML IVPB SCH ×2 (11:26→19:05)
--- NOTE | 2019-01-01 12:39 | PN ---
Physical Exam: SUBJECTIVE: Patient seen and examined at bedside. Extubated today after rounds. OBJECTIVE: Vital Signs Period Temp Pulse Resp BP Sys/Taveras Pulse Ox Last 24 Hr 97 F-98.6 F 74-111 11-20 90-180/44-90 92-100 GENERAL: resting, in NAD HEENT: NCAT, increased secretions NECK: supple CARDIO: S1, s2, rrr. no r/m/g PULM: CTA b/l. decreased inspiratory effort abdomen: nontender, nondistended. soft LE: 2+ pt pulses , no edema Laboratory Tests 12/31/18 01/01/19 01/01/19 11:30 06:18 06:18 WBC Hgb Hct Plt Count Sodium 146 H Potassium 3.8 Chloride 112 H Anion Gap 7 L BUN 18.5 H Calcium 6.9 L* Phosphorus 2.3 L Total Bilirubin 4.8 H AST 66 H Alkaline Phosphatase 248 H Total Protein 6.0 L Albumin 1.8 L Stool Occult Blood Positive Hep A IgM Ab Confirm Pending Hepatitis A Ab Total Pending Hep Bs Antigen Pending Hep Bs Antibody Pending Hep B Core Total Ab Pending Hep B Core IgM Ab Pending Hepatitis Be Antibody Pending Hepatitis Be Antigen Pending Hep C Ab Diagnostic Pending 01/01/19 09:47 WBC 11.6 H Hgb 8.0 L Hct 23.5 L Plt Count 136 Sodium Potassium Chloride Hep A IgM Ab Confirm Hep Bs Antibody Hep B Core Total Ab Hep B Core IgM Ab Hepatitis Be Antibody Hepatitis Be Antigen Hep C Ab Diagnostic ASSESSMENT/PLAN: 58 y/o with hx alcohol abuse and recent detox presented with 2 days history of hematemesis and melena/ BRBPR , admitted to ICU for GIB, likely variceal bleed. #Neuro -extubated; weaned off propofol gtt -responds to commands #GI Esoph variceal bleed -multiple varices in distal esophagus, underwent EGD w/ banding (x4) -cont to follow H/H -received 4 units PRBCs, 1 FFP thus far. with adequate rise -will give vitk x 1, additional unit FFP to help reverse INR -c/w octreotide gtt, protonix BID -c/w levaquin daily per GI however per primary team -f/u AFP, tumor markers, hep serologies -if rebleed, will need transfer to tertiary center -ECHO ordered by primary team. #F/E/N LR 100 cc/hr continue to follow lytes NPO #PPX SCD's; as w/ GIB #Dispo monitoring in icu Visit type - Emergency Visit Emergency Visit: No - New Patient This patient is new to me today: Yes Date on this admission: 01/01/19 - Critical Care Critical Care patient: Yes Total Critical Care Time (in minutes): 43 Critical Care Statement: The care of this patient involved high complexity decision making to prevent further life threatening deterioration of the patient 's condition and/or to evaluate & treat vital organ system(s) failure or risk of failure.
[2019-01-01] MEDS: ACETAMINOPHEN 1000 MG/100 ML VIAL (NON FORMULARY) IVPB PRN (14:31)
--- NOTE | 2019-01-01 16:40 | PN ---
Progress Note (short form) - Note Progress Note: 58M S/P banding of varices under GA. Now extubated. Vital Signs Temperature 99.6 F 01/01/19 14:00 Pulse Rate 84 01/01/19 16:10 Respiratory Rate 20 01/01/19 14:00 Blood Pressure 121/67 01/01/19 14:00 O2 Sat by Pulse Oximetry (%) 100 01/01/19 16:10 Active Medications Acetaminophen (Ofirmev Injection -) 1,000 mg IVPB Q6H PRN PRN Reason: PAIN LEVEL 1-5 Last Admin: 01/01/19 14:31 Dose: 1,000 mg Chlorhexidine Gluconate (Hibiclens For Decolonization -) 1 applic TP HS DEVYN Last Admin: 12/31/18 22:31 Dose: 1 applic Octreotide Acetate 200 mcg/Octreotide Acetate 1,000 mcg/Dextrose 500 mls @ 20.833 mls/hr IVPB ASDIR DEVYN Last Admin: 01/01/19 11:26 Dose: Not Given Lactated Ringer's (Lactated Ringers Solution) 1,000 ml in 1,000 mls @ 100 mls/ hr IV ASDIR DEVYN Last Admin: 01/01/19 09:30 Dose: 100 mls/hr Metoclopramide HCl (Reglan Injection -) 10 mg IVPUSH Q6H PRN PRN Reason: NAUSEA AND/OR VOMITING Mupirocin (Bactroban Ointment (For Decolonization) -) 1 applic NS BID DEVYN Stop: 01/05/19 21:59 Last Admin: 01/01/19 09:29 Dose: 1 applic Pantoprazole Sodium (Protonix Iv) 40 mg IVPUSH BID DEVYN Last Admin: 01/01/19 09:23 Dose: 40 mg Phytonadione (Aqua Mephyton Injection -) 10 mg SQ ONCE ONE Stop: 01/02/19 10:01 Laboratory Last Values WBC 11.6 K/mm3 (4.0-10.0) H 01/01/19 09:47 RBC 2.49 M/mm3 (4.00-5.60) L 01/01/19 09:47 Hgb 8.0 GM/dL (11.7-16.9) L 01/01/19 09:47 Hct 23.5 % (35.4-49) L 01/01/19 09:47 MCV 94.3 fl (80-96) 01/01/19 09:47 MCH 32.2 pg (25.7-33.7) 01/01/19 09:47 MCHC 34.2 g/dl (32.0-35.9) 01/01/19 09:47 RDW 17.5 % (11.9-15.9) H 01/01/19 09:47 Plt Count 136 K/MM3 (134-434) 01/01/19 09:47 MPV 8.7 fl (7.5-11.1) 01/01/19 09:47 Absolute Neuts (auto) 9.4 K/mm3 (1.5-8.0) H 01/01/19 09:47 Neutrophils % 81.3 % (42.8-82.8) 01/01/19 09:47 Lymphocytes % 10.5 % (8-40) 01/01/19 09:47 Monocytes % 4.3 % (3.8-10.2) 01/01/19 09:47 Eosinophils % 3.3 % (0-4.5) D 01/01/19 09:47 Basophils % 0.6 % (0-2.0) 01/01/19 09:47 Nucleated RBC % 0 % (0-0) 01/01/19 09:47 PT with INR 24.90 SEC (9.7-13.0) H 01/01/19 06:18 INR 2.09 (0.83-1.09) H 01/01/19 06:18 PTT (Actin FS) 42.3 SECONDS (25.2-36.5) H 01/01/19 06:18 Anticoagulation Therapy No Result Required. 12/31/18 20:20 Puncture Site Left radial 12/31/18 20:20 ABG pH 7.40 (7.35-7.45) 12/31/18 20:20 ABG pCO2 at Pt Temp 39.9 mmHg (35-45) 12/31/18 20:20 ABG pO2 at Pt Temp 96.2 mmHg (80-100) 12/31/18 20:20 ABG HCO3 25 mmol/L (22-27) 12/31/18 20:20 ABG O2 Sat (Measured) 97.2 % (95-98) 12/31/18 20:20 ABG O2 Content No Result Required. 12/31/18 20:20 ABG Base Excess 0.9 meq/l (-2-2) 12/31/18 20:20 James Test Positive 12/31/18 20:20 O2 Delivery Device No Result Required. 12/31/18 20:20 Oxygen Flow Rate Vent 12/31/18 20:20 Vent Mode No Result Required. 12/31/18 20:20 Vent Rate No Result Required. 12/31/18 20:20 Mechanical Rate No Result Required. 12/31/18 20:20 Pressure Support Vent No Result Required. 12/31/18 20:20 Sodium 146 mmol/L (136-145) H 01/01/19 06:18 Potassium 3.8 mmol/L (3.5-5.1) 01/01/19 06:18 Chloride 112 mmol/L (98-107) H 01/01/19 06:18 Carbon Dioxide 26 mmol/L (21-32) 01/01/19 06:18 Anion Gap 7 MMOL/L (8-16) L 01/01/19 06:18 BUN 18.5 mg/dL (7-18) H 01/01/19 06:18 Creatinine 0.8 mg/dL (0.55-1.3) 01/01/19 06:18 Est GFR (CKD-EPI)AfAm 113.33 01/01/19 06:18 Est GFR (CKD-EPI)NonAf 97.78 01/01/19 06:18 Random Glucose 120 mg/dL (74-106) H 01/01/19 06:18 Lactic Acid 1.6 mmol/L (0.4-2.0) 12/31/18 20:00 Calcium 6.9 mg/dL (8.5-10.1) L* 01/01/19 06:18 Phosphorus 2.3 mg/dL (2.5-4.9) L 01/01/19 06:18 Magnesium 1.9 mg/dL (1.8-2.4) 01/01/19 06:18 Total Bilirubin 4.8 mg/dL (0.2-1) H 01/01/19 06:18 AST 66 U/L (15-37) H 01/01/19 06:18 ALT 18 U/L (13-61) 01/01/19 06:18 Alkaline Phosphatase 248 U/L (45-117) H 01/01/19 06:18 Ammonia 86.30 umol/L (11-32) H 12/31/18 20:00 Creatine Kinase 38 U/L (26-308) 12/31/18 11:45 Troponin I < 0.02 ng/ml (0.00-0.05) 12/31/18 11:45 B-Natriuretic Peptide 118.2 pg/ml (5-125) 01/01/19 06:18 Total Protein 6.0 g/dl (6.4-8.2) L 01/01/19 06:18 Albumin 1.8 g/dl (3.4-5.0) L 01/01/19 06:18 Lipase 86 U/L (73-393) 12/31/18 11:45 TSH 0.36 uIU/ml (0.358-3.74) 01/01/19 06:18 Stool Occult Blood Positive (NEGATIVE) 12/31/18 11:30 Alcohol, Quantitative < 3.0 mg/dL (0.0-5.0) 12/31/18 11:45 Blood Type O POSITIVE 12/31/18 11:45 Antibody Screen Negative 12/31/18 11:45 Crossmatch See Detail 12/31/18 11:45 - No anesthetic complications - Care per ICU
[2019-01-01] MEDS ORDERED: PT OWN MED DRAWER 7, Y5N ONE (17:41)
[2019-01-01 21:14] LABS: BASO % 0.6 % (0-2.0); HEMATOCRIT 24.5 % (35.4-49); HEMOGLOBIN 8.2 GM/dL (11.7-16.9); LYMPH % 13.2 % (8-40); MCHC 33.6 g/dl (32.0-35.9); MEAN CELL VOLUME 95.2 fl (80-96); MEAN PLT VOLUME 8.8 fl (7.5-11.1); MONO % 4.3 % (3.8-10.2); NEUT % 77.9 % (42.8-82.8); PLATELET COUNT 152 K/MM3 (134-434); RBC 2.57 M/mm3 (4.00-5.60); RDW 17.5 % (11.9-15.9); WHITE BLOOD COUNT 12.4 K/mm3 (4.0-10.0)
[2019-01-01] MEDS: CHLORHEXIDINE GLUCONATE 4% CLEANSER FOR DECOLONIZATION TP SCH (21:48)
--- NOTE | 2019-01-01 21:56 | EKG ---
Test Reason : Blood Pressure : / mmHG Vent. Rate : 077 BPM Atrial Rate : 077 BPM P-R Int : 128 ms QRS Dur : 096 ms QT Int : 450 ms P-R-T Axes : 075 -15 051 degrees QTc Int : 509 ms NORMAL SINUS RHYTHM PROLONGED QT ABNORMAL ECG WHEN COMPARED WITH ECG OF 31-DEC-2018 13:57, NO SIGNIFICANT CHANGE WAS FOUND Confirmed by Yamel Schuler ([id number]) on 01/01/2019 9:56:08 PM Referred By: Krista GARNER Confirmed By:Yamel Schuler
--- NOTE | 2019-01-01 22:04 | EKG ---
Test Reason : Blood Pressure : / mmHG Vent. Rate : 105 BPM Atrial Rate : 105 BPM P-R Int : 120 ms QRS Dur : 088 ms QT Int : 392 ms P-R-T Axes : 061 -05 046 degrees QTc Int : 518 ms SINUS TACHYCARDIA SEPTAL INFARCT , AGE UNDETERMINED ABNORMAL ECG WHEN COMPARED WITH ECG OF 16-DEC-2018 22:19, PREMATURE VENTRICULAR COMPLEXES ARE NO LONGER PRESENT T WAVE AMPLITUDE HAS DECREASED IN LATERAL LEADS Confirmed by Yamel Schuler ([id number]) on 01/01/2019 10:03:35 PM Referred By: Confirmed By:Yamel Schuler
--- NOTE | 2019-01-01 22:19 | CONSULT ---
Consult Consult Specialty:: Hematology Referred by:: Dr. Varghese Reason for Consultation:: coagulopathy - History of Present Illness Chief Complaint: hematemesis History of Present Illness: 58M with ETOH abuse and cirrhosis presented with hematemesis, melena and abdominal pain. Found to have Hgb 5.9. Transfused. S/p banding of gastric varices today. Hematology consulted for coagulopathy: PT 24.9, PTT 42.3. s/p Vit K 10 mg SC this morning. Pt c/o continues abdominal pain but no obvious further bleeding. 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 History of Recent Travel: No Home Medications - Allergies Allergies/Adverse Reactions: Allergies Allergy/AdvReac Type Severity Reaction Status Date / Time No Known Allergies Allergy Verified 12/16/18 18:10 - Home Medications Home Medications: Ambulatory Orders NK [No Known Home Medication] 12/14/18 Review of Systems - Review of Systems Constitutional: reports: Weakness HENT: denies: Epistaxis Cardiovascular: reports: Chest Pain Respiratory: reports: No Symptoms Gastrointestinal: reports: Abdominal Pain, Melena, Vomiting, Vomiting Blood Physical Exam Vital Signs: Vital Signs Temperature 99.6 F 01/01/19 14:00 Pulse Rate 80 01/01/19 20:00 Respiratory Rate 20 01/01/19 20:00 Blood Pressure 120/78 01/01/19 20:00 O2 Sat by Pulse Oximetry (%) 100 01/01/19 20:00 Constitutional: Yes: No Distress Eyes: Yes: Sclera Icterus Cardiovascular: Yes: Regular Rate and Rhythm Respiratory: Yes: Regular, CTA Bilaterally Gastrointestinal: Yes: Soft, Tenderness Edema: No Labs: CBC, BMP 01/01/19 20:33 01/01/19 06:18 Assessment/Plan 58M with etoh cirrhosis admitted with variceal bleeding. Prolonged PT and (to a lesser extent PTT) likely 2/2 liver dysfunction. Agree with trial of Vit K. Repeat coags tomorrow. Added fibrinogen and nutritional labs for likely chronic component of anemia.
[2019-01-02 07:01] LABS: BASO % 0.5 % (0-2.0); EOS % 4.5 % (0-4.5); HEMATOCRIT 25.5 % (35.4-49); HEMOGLOBIN 8.5 GM/dL (11.7-16.9); MCH 32.1 pg (25.7-33.7); MCHC 33.5 g/dl (32.0-35.9); MEAN CELL VOLUME 95.7 fl (80-96); MEAN PLT VOLUME 8.6 fl (7.5-11.1); MONO % 3.6 % (3.8-10.2); NEUT % 76.4 % (42.8-82.8); PLATELET COUNT 146 K/MM3 (134-434); RBC 2.66 M/mm3 (4.00-5.60); RDW 18.1 % (11.9-15.9); WHITE BLOOD COUNT 11.7 K/mm3 (4.0-10.0)
[2019-01-02 07:14] LABS: ACTIVATED PTT 41.4 SECONDS (25.2-36.5)
[2019-01-02 07:45] LABS: BLOOD UREA NITROGEN 14.1 mg/dL (7-18); CREATININE 0.8 mg/dL (0.55-1.3); POTASSIUM 3.5 mmol/L (3.5-5.1)
[2019-01-02 08:23] LABS: CALCIUM 6.8 mg/dL (8.5-10.1)
[2019-01-02] MEDS ORDERED: NAPH,MB-DB/K PH,MBDB POWDER PACKET PO ONE (08:27)
--- NOTE | 2019-01-02 09:03 | PN ---
<Edmond Yi - Last Filed: 01/02/19 09:03> Physical Exam: SUBJECTIVE: Patient seen and examined OBJECTIVE: Vital Signs Period Temp Pulse Resp BP Sys/Taveras Pulse Ox Last 24 Hr 98.2 F-99.6 F 76-85 16-20 96-124/56-82 100-100 GENERAL: The patient is awake, alert, and fully oriented, in no acute distress. HEAD: Normal with no signs of trauma. EYES: PERRL, extraocular movements intact, sclera anicteric, conjunctiva clear. No ptosis. ENT: Ears normal, nares patent, oropharynx clear without exudates, moist mucous membranes. NECK: Trachea midline, full range of motion, supple. LUNGS: Breath sounds equal, clear to auscultation bilaterally, no wheezes, no crackles, no accessory muscle use. HEART: Regular rate and rhythm, S1, S2 without murmur, rub or gallop. ABDOMEN: Soft, nontender, nondistended, normoactive bowel sounds, no guarding, no rebound, no hepatosplenomegaly, no masses. EXTREMITIES: 2+ pulses, warm, well-perfused, no edema. NEUROLOGICAL: Cranial nerves II through XII grossly intact. Normal speech, gait not observed. PSYCH: Normal mood, normal affect. SKIN: Warm, dry, normal turgor, no rashes or lesions noted Laboratory Results - last 24 hr 01/01/19 01/01/19 01/01/19 06:18 09:47 20:33 WBC 11.6 H 12.4 H RBC 2.49 L 2.57 L Hgb 8.0 L 8.2 L Hct 23.5 L 24.5 L MCV 94.3 95.2 MCH 32.2 32.0 MCHC 34.2 33.6 RDW 17.5 H 17.5 H Plt Count 136 152 MPV 8.7 8.8 Absolute Neuts (auto) 9.4 H 9.7 H Neutrophils % 81.3 77.9 Lymphocytes % 10.5 13.2 D Monocytes % 4.3 4.3 Eosinophils % 3.3 D 4.0 Basophils % 0.6 0.6 Nucleated RBC % 0 0 PTT (Actin FS) Sodium Potassium Chloride Carbon Dioxide Anion Gap BUN Creatinine Est GFR (CKD-EPI)AfAm Est GFR (CKD-EPI)NonAf Random Glucose Calcium 6.9 L* Phosphorus Magnesium Iron TIBC Iron Saturation Unsaturated IBC Ferritin Vitamin B12 Serum Folate 01/02/19 01/02/19 01/02/19 05:25 05:25 05:25 WBC 11.7 H RBC 2.66 L Hgb 8.5 L Hct 25.5 L MCV 95.7 MCH 32.1 MCHC 33.5 RDW 18.1 H Plt Count 146 MPV 8.6 Absolute Neuts (auto) 8.9 H Neutrophils % 76.4 Lymphocytes % 15.0 Monocytes % 3.6 L Eosinophils % 4.5 Basophils % 0.5 Nucleated RBC % 0 PTT (Actin FS) 41.4 H Sodium Potassium Chloride Carbon Dioxide Anion Gap BUN Creatinine Est GFR (CKD-EPI)AfAm Est GFR (CKD-EPI)NonAf Random Glucose Calcium Phosphorus Magnesium Iron 47 L TIBC 112 L Iron Saturation 41 H Unsaturated IBC 65 L Ferritin 624.5 H Vitamin B12 1219 H Serum Folate 01/02/19 06:25 WBC RBC Hgb Hct MCV MCH MCHC RDW Plt Count MPV Absolute Neuts (auto) Neutrophils % Lymphocytes % Monocytes % Eosinophils % Basophils % Nucleated RBC % PTT (Actin FS) Sodium 142 Potassium 3.5 Chloride 110 H Carbon Dioxide 25 Anion Gap 7 L BUN 14.1 Creatinine 0.8 Est GFR (CKD-EPI)AfAm 113.33 Est GFR (CKD-EPI)NonAf 97.78 Random Glucose 102 Calcium 6.8 L* Phosphorus 2.0 L Magnesium 2.0 Iron TIBC Iron Saturation Unsaturated IBC Ferritin Vitamin B12 Serum Folate 15 Active Medications Generic Name Dose Route Start Last Admin Trade Name Freq PRN Reason Stop Dose Admin Acetaminophen 1,000 mg 01/01/19 14:16 01/01/19 14:31 Ofirmev Injection - IVPB 1,000 mg Q6H PRN Administration PAIN LEVEL 1-5 Chlorhexidine Gluconate 1 applic 12/31/18 22:00 01/01/19 21:48 Hibiclens For Decolonization - TP 1 applic HS DEVYN Administration Octreotide Acetate 200 mcg/ 500 mls @ 20.833 mls/hr 12/31/18 11:15 01/01/19 19:05 Octreotide Acetate 1,000 mcg/ IVPB 20.833 mls/hr Dextrose ASDIR DEVYN Administration Lactated Ringer's 1,000 ml in 1,000 mls @ 100 mls/hr 01/01/19 09:30 01/01/19 09:30 Lactated Ringers Solution IV 100 mls/hr ASDIR DEVYN Administration Metoclopramide HCl 10 mg 12/31/18 14:00 Reglan Injection - IVPUSH Q6H PRN NAUSEA AND/OR VOMITING Mupirocin 1 applic 12/31/18 22:00 01/01/19 21:48 Bactroban Ointment (For Decolonization) - NS 01/05/19 21:59 1 applic BID DEVYN Administration Pantoprazole Sodium 40 mg 12/31/18 22:00 01/01/19 21:48 Protonix Iv IVPUSH 40 mg BID DEVNY Administration Phytonadione 10 mg 01/02/19 10:00 Aqua Mephyton Injection - SQ 01/02/19 10:01 ONCE ONE ASSESSMENT/PLAN: ATTENDING PHYSICIAN STATEMENT I saw and evaluated the patient. I reviewed the resident's note and discussed the case with the resident. I agree with the resident's findings and plan as documented. SUBJECTIVE: OBJECTIVE: ASSESSMENT AND PLAN: <Robert Varghese - Last Filed: 01/02/19 18:17> Physical Exam: Followup MELD labs-considering TIPS at [facility] per GI. Will followup recs. No further bleeding Seen and examined, agree with ATTENDING PHYSICIAN STATEMENT I saw and evaluated the patient. I reviewed the resident's note and discussed the case with the resident. I agree with the resident's findings and plan as documented. SUBJECTIVE: OBJECTIVE: ASSESSMENT AND PLAN:
[2019-01-02] MEDS: PANTOPRAZOLE SODIUM 40 MG VIAL IVPUSH SCH ×2 (09:08→21:09)
[2019-01-02 09:11] LABS: INR 1.76 (0.83-1.09); PROTHROMBIN TIME (PATIENT) 20.9 SEC (9.7-13.0)
[2019-01-02] MEDS ORDERED: PHYTONADIONE 10 MG/1 ML AMP SQ ONE (10:00)
[2019-01-02] MEDS: OCTREOTIDE ACETATE 200 MCG, OCTREOTIDE ACETATE 1,000 MCG in DEXTROSE 5%-WATER - 496 ML IVPB SCH ×2 (10:32→19:00)
[2019-01-02] MEDS: MUPIROCIN 2% TOPICAL OINTMENT FOR DECOLONIZATION NS SCH ×2 (10:50→21:11)
--- NOTE | 2019-01-02 12:51 | ECHO ---
Name: JANE UDAY Exam:Adult Echocardiogram Study Date: 01/02/2019 08:06 AM Age: 58 yrs Reason For Study: shock Height: 72 in Weight: 204 lb BSA: 2.1 m2 MMode/2D Measurements & Calculations IVSd: 0.86 cm Ao root diam: 2.8 cm LVIDd: 4.3 cm LA dimension: 3.5 cm LVIDs: 2.9 cm LVPWd: 0.83 cm EDV(Teich): 83.6 ml LVOT diam: 2.0 cm ESV(Teich): 31.4 ml LAV (MOD-bp): 66.9 ml Doppler Measurements & Calculations MV E max braxton: 82.9 cm/sec Ao V2 max: 171.0 cm/sec MV A max braxton: 77.6 cm/sec Ao max P.7 mmHg MV E/A: 1.1 MV dec time: 0.20 sec KAILASH(V,D): 2.5 cm2 LV V1 max P.6 mmHg MR max braxton: 194.1 cm/sec LV V1 max: 137.8 cm/sec MR max P.1 mmHg TR max braxton: 241.6 cm/sec PA V2 max: 115.4 cm/sec TR max P.4 mmHg PA max P.4 mmHg Med Peak E' Braxton: 9.8 cm/sec Med E/e': 8.5 Lat Peak E' Braxton: 9.9 cm/sec Lat E/e': 8.4 Procedure A complete two-dimensional transthoracic echocardiogram was performed (2D, M-mode, Doppler and color flow Doppler). Left Ventricle The left ventricle is normal in size. Left ventricular systolic function is normal. Ejection Fraction = 60- 65%. No regional wall motion abnormalities noted. Right Ventricle The right ventricle is normal size. The right ventricular systolic function is normal. Atria The left atrial size is normal. LA volume index is 31 ml/m2. Right atrial size is normal. Mitral Valve There is mild mitral annular calcification. There is no mitral regurgitation noted. Tricuspid Valve The tricuspid valve is normal in structure and function. There is mild tricuspid regurgitation. Pulmo nary artery systolic pressure is at least 26 mmHg if RA pressure is assumed 3 mmHg. Aortic Valve There is mild aortic sclerosis.;. No aortic regurgitation is present. Pulmonic Valve The pulmonic valve is not well visualized. Trace pulmonic valvular regurgitation. Great Vessels The aortic root is normal size. Pericardium/Pleura There is no pericardial effusion. Interpretation Summary The left ventricle is normal in size. Left ventricular systolic function is normal. No regional wall motion abnormalities noted. Ejection Fraction = 60-65%. The right ventricular systolic function is normal. The left atrial size is normal. Right atrial size is normal. There is mild mitral annular calcification. There is mild tricuspid regurgitation. Pulmonary artery systolic pressure is at least 26 mmHg if RA pressure is assumed 3 mmHg There is mild aortic sclerosis.; Trace pulmonic valvular regurgitation. There is no pericardial effusion. Previous study is not available for comparison Seng Kelley MD 01/02/2019 12:50 PM
[2019-01-02] MEDS ORDERED: PT OWN MED DRAWER 7, Y5N ONE (13:18)
--- NOTE | 2019-01-02 13:35 | PN ---
Teaching Attending Note Name of Resident: Christine Polo ATTENDING PHYSICIAN STATEMENT I saw and evaluated the patient. I reviewed the resident's note and discussed the case with the resident. I agree with the resident's findings and plan as documented. SUBJECTIVE: Pt seen and examined in the ICU. No further bleeding. Last BM reportedly brown. No shortness of breath or chest pain. OBJECTIVE: Vital Signs Period Temp Pulse Resp BP Sys/Taveras Pulse Ox Last 24 Hr 98.2 F-99.6 F 76-84 15-20 96-130/66-82 100-100 Intake & Output 12/30/18 12/31/18 01/01/19 01/02/19 23:59 23:59 23:59 23:59 Intake Total 850 3029 240 Output Total 1700 1000 Balance 850 1329 -760 Weight 92.533 kg 92.533 kg 92.533 kg Gen: NAD in chair Heart: RRR Lung: decreased breath sounds at the bases Abd: soft, nontender Ext: no edema CBC, BMP 01/02/19 05:25 01/02/19 06:25 Active Medications Acetaminophen (Ofirmev Injection -) 1,000 mg IVPB Q6H PRN PRN Reason: PAIN LEVEL 1-5 Last Admin: 01/01/19 14:31 Dose: 1,000 mg Chlorhexidine Gluconate (Hibiclens For Decolonization -) 1 applic TP HS [facility] Last Admin: 01/01/19 21:48 Dose: 1 applic Octreotide Acetate 200 mcg/Octreotide Acetate 1,000 mcg/Dextrose 500 mls @ 20.833 mls/hr IVPB ASDIR [facility] Last Admin: 01/02/19 10:32 Dose: Not Given Lactated Ringer's (Lactated Ringers Solution) 1,000 ml in 1,000 mls @ 100 mls/ hr IV ASDIR DEVYN Last Admin: 01/01/19 09:30 Dose: 100 mls/hr Metoclopramide HCl (Reglan Injection -) 10 mg IVPUSH Q6H PRN PRN Reason: NAUSEA AND/OR VOMITING Mupirocin (Bactroban Ointment (For Decolonization) -) 1 applic NS BID DEVYN Stop: 01/05/19 21:59 Last Admin: 01/01/19 21:48 Dose: 1 applic Nadolol (Corgard -) 20 mg PO DAILY [facility] Pantoprazole Sodium (Protonix Iv) 40 mg IVPUSH BID [facility] Last Admin: 01/02/19 09:08 Dose: 40 mg ASSESSMENT AND PLAN: s/p Acute Respiratory Failure GI Bleed Esophageal Varices s/p Banding Acute Blood Loss Anemia Alcohol Abuse Liver Cirrhosis Coagulopathy Elevated LFTs - monitor H/H - transfuse as needed - continue protonix - complete octreotide gtt - nadolol - PO per GI - DVT prophylaxis - can monitor on floor
[2019-01-02] MEDS: NADOLOL 20 MG TABLET (FP) PO SCH (13:40)
--- NOTE | 2019-01-02 14:09 | PN ---
Progress Note (short form) - Note Progress Note: Patient seen and examined Labs reviewed Sitting up in chair, denies abdominal pain or further hematemesis/melena Vital Signs Temp 98.6 F 01/02/19 10:00 Pulse 79 01/02/19 12:00 Resp 16 01/02/19 12:00 BP 108/70 01/02/19 12:00 Pulse Ox 100 01/02/19 09:00 NAD +icterus CBC, BMP 01/02/19 05:25 01/02/19 06:25 Hepatic Panel Total Bilirubin 4.8 mg/dL (0.2-1) H 01/01/19 06:18 AST 66 U/L (15-37) H 01/01/19 06:18 ALT 18 U/L (13-61) 01/01/19 06:18 Alkaline Phosphatase 248 U/L (45-117) H 01/01/19 06:18 Albumin 1.8 g/dl (3.4-5.0) L 01/01/19 06:18 INR, PTT INR 1.76 (0.83-1.09) H 01/02/19 05:25 Fibrinogen 229.0 mg/dL (238-498) L 01/02/19 05:25 Impression: Decompensated ETOH cirrhosis c/b EV bleeding, s/p banding. Currently hgb stable. Continue PPI and octreotide drips Trend hgb closely Daily MELD labs - includes LFTs and INR Should be on 5d of abx given GI bleeding in cirrhotic - will start ceftriaxone 1g daily Discussed potential transfer to [facility] with pt for TIPS eval. He said he will think about it tomorrow and wants to discuss w his uncle, Dr. Fonseca. I' ve also reached out and left a message for Dr. Fonseca by phone
[2019-01-02] MEDS ORDERED: cefTRIAXone SODIUM 1 GM VIAL ONE (15:35)
[2019-01-02] MEDS ORDERED: DEXTROSE 5%-WATER - 50 ML IVPB ONE (15:35)
[2019-01-02] MEDS: CEFTRIAXONE 1 GM in DEXTROSE 5%-WATER - 50 ML IVPB SCH (15:40)
--- NOTE | 2019-01-02 15:57 | PN ---
Physical Exam: SUBJECTIVE: Patient seen and examined at bedside. pt is sitting up and complaining of discomfort from the arndt catheter. pt still has L flank pain. OBJECTIVE: Vital Signs Period Temp Pulse Resp BP Sys/Taveras Pulse Ox Last 24 Hr 98.2 F-98.9 F 76-84 15-20 96-130/66-82 100-100 GENERAL: The patient is awake, alert, and fully oriented, in no acute distress. LUNGS: Breath sounds equal, clear to auscultation bilaterally, no wheezes, no crackles, no accessory muscle use. HEART: Regular rate and rhythm, S1, S2 ABDOMEN: Soft, nontender, mild distended, normoactive bowel sounds, no guarding, hepatomegaly EXTREMITIES: 2+ pulses, warm, well-perfused, no edema. SKIN: Warm, dry, normal turgor, no rashes or lesions noted Laboratory Results - last 24 hr 01/01/19 01/01/19 01/02/19 06:18 20:33 05:25 WBC 12.4 H RBC 2.57 L Hgb 8.2 L Hct 24.5 L MCV 95.2 MCH 32.0 MCHC 33.6 RDW 17.5 H Plt Count 152 MPV 8.8 Absolute Neuts (auto) 9.7 H Neutrophils % 77.9 Lymphocytes % 13.2 D Monocytes % 4.3 Eosinophils % 4.0 Basophils % 0.6 Nucleated RBC % 0 PT with INR 20.90 H INR 1.76 H PTT (Actin FS) 41.4 H Fibrinogen Sodium Potassium Chloride Carbon Dioxide Anion Gap BUN Creatinine Est GFR (CKD-EPI)AfAm Est GFR (CKD-EPI)NonAf Random Glucose Calcium Phosphorus Magnesium Iron TIBC Iron Saturation Unsaturated IBC Ferritin Vitamin B12 Serum Folate Hep C Ab Diagnostic 0.2 01/02/19 01/02/19 01/02/19 05:25 05:25 05:25 WBC 11.7 H RBC 2.66 L Hgb 8.5 L Hct 25.5 L MCV 95.7 MCH 32.1 MCHC 33.5 RDW 18.1 H Plt Count 146 MPV 8.6 Absolute Neuts (auto) 8.9 H Neutrophils % 76.4 Lymphocytes % 15.0 Monocytes % 3.6 L Eosinophils % 4.5 Basophils % 0.5 Nucleated RBC % 0 PT with INR INR PTT (Actin FS) Fibrinogen 229.0 L Sodium Potassium Chloride Carbon Dioxide Anion Gap BUN Creatinine Est GFR (CKD-EPI)AfAm Est GFR (CKD-EPI)NonAf Random Glucose Calcium Phosphorus Magnesium Iron 47 L TIBC 112 L Iron Saturation 41 H Unsaturated IBC 65 L Ferritin 624.5 H Vitamin B12 1219 H Serum Folate Hep C Ab Diagnostic 01/02/19 06:25 WBC RBC Hgb Hct MCV MCH MCHC RDW Plt Count MPV Absolute Neuts (auto) Neutrophils % Lymphocytes % Monocytes % Eosinophils % Basophils % Nucleated RBC % PT with INR INR PTT (Actin FS) Fibrinogen Sodium 142 Potassium 3.5 Chloride 110 H Carbon Dioxide 25 Anion Gap 7 L BUN 14.1 Creatinine 0.8 Est GFR (CKD-EPI)AfAm 113.33 Est GFR (CKD-EPI)NonAf 97.78 Random Glucose 102 Calcium 6.8 L* Phosphorus 2.0 L Magnesium 2.0 Iron TIBC Iron Saturation Unsaturated IBC Ferritin Vitamin B12 Serum Folate 15 Hep C Ab Diagnostic Active Medications Current Medications Acetaminophen (Ofirmev Injection -) 1,000 mg IVPB Q6H PRN PRN Reason: PAIN LEVEL 1-5 Last Admin: 01/01/19 14:31 Dose: 1,000 mg Chlorhexidine Gluconate (Hibiclens For Decolonization -) 1 applic TP HS DEVYN Last Admin: 01/01/19 21:48 Dose: 1 applic Octreotide Acetate 200 mcg/Octreotide Acetate 1,000 mcg/Dextrose 500 mls @ 20.833 mls/hr IVPB ASDIR DEVYN Last Admin: 01/02/19 10:32 Dose: Not Given Ceftriaxone Sodium 1 gm/ (Dextrose) 50 mls @ 100 mls/hr IVPB DAILY DEVYN; Protocol Last Admin: 01/02/19 15:40 Dose: 100 mls/hr Metoclopramide HCl (Reglan Injection -) 10 mg IVPUSH Q6H PRN PRN Reason: NAUSEA AND/OR VOMITING Last Admin: 01/02/19 13:41 Dose: 10 mg Mupirocin (Bactroban Ointment (For Decolonization) -) 1 applic NS BID DEVYN Stop: 01/05/19 21:59 Last Admin: 01/02/19 10:50 Dose: 1 applic Nadolol (Corgard -) 20 mg PO DAILY DEVYN Last Admin: 01/02/19 13:40 Dose: 20 mg Pantoprazole Sodium (Protonix Iv) 40 mg IVPUSH BID DEVYN Last Admin: 01/02/19 09:08 Dose: 40 mg ASSESSMENT/PLAN: 58 y/o with hx alcohol abuse and recent detox presented with 2 days history of hematemesis and melena/ BRBPR , admitted to ICU for GIB2/2 variceal bleed. Neuro -extubated; weaned off propofol gtt -responds to commands GI: Esophageal variceal bleed, alcoholic liver cirrhosis -multiple varices in distal esophagus, underwent EGD w/ banding (x4) -cont to follow H/H -received 4 units PRBCs, 1 FFP - adequate rise -will give vitk x 1, additional unit FFP to help reverse INR -c/w octreotide gtt, protonix BID -d/c levaquin -ECHO ordered by primary team. - start ceftriaxone 1g daily -potential transfer to [facility] with pt for TIPS eval. He said he will think about it tomorrow F/E/N continue to follow lytes clear liquid diet PPX: SCD's; as w/ GIB Dispo: monitoring in icu Visit type - Emergency Visit Emergency Visit: No - New Patient This patient is new to me today: No - Critical Care Critical Care patient: Yes Total Critical Care Time (in minutes): 36 Critical Care Statement: The care of this patient involved high complexity decision making to prevent further life threatening deterioration of the patient 's condition and/or to evaluate & treat vital organ system(s) failure or risk of failure. ATTENDING PHYSICIAN STATEMENT I saw and evaluated the patient. I reviewed the resident's note and discussed the case with the resident. I agree with the resident's findings and plan as documented. SUBJECTIVE: OBJECTIVE: ASSESSMENT AND PLAN:
[2019-01-02 19:01] VITALS: BMI 27.6
--- NOTE | 2019-01-02 20:36 | PN ---
Progress Note (short form) - Note Progress Note: PAtient seen and examined Denies any specific complaints AFVSS Cor: RSR, No murmurs, No gallops Lungs: Clear to P&A Abd: Soft, Normal bowel sounds, No organomegaly Ext:No significant edema Labs/Meds reviewed A/P 58M with etoh cirrhosis admitted with variceal bleeding. Prolonged PT and PTT likely 2/2 liver dysfunction Decompensated ETOH cirrhosis c/b EV bleeding, s/p banding. Currently hgb stable. potential transfer to [facility] with pt for TIPS eval
[2019-01-02 21:11] LABS: HEP B CORE AB, TOT Negative (Negative)
[2019-01-02] MEDS: CHLORHEXIDINE GLUCONATE 4% CLEANSER FOR DECOLONIZATION TP SCH (21:13)
--- NOTE | 2019-01-02 21:36 | PN ---
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 Some pain in abdomen, but mild GENERAL: The patient is awake, alert, and fully oriented, NAD LUNGS:CTA bilaterally, no wheezes, no crackles, no accessory muscle use. HEART: Regular rate and rhythm, S1, S2, no murmurs ABDOMEN: Soft, nontender, mild distended, normoactive bowel sounds, no guarding, hepatomegaly EXTREMITIES: 2+ pulses, warm, well-perfused, no edema. SKIN: Warm, dry, normal turgor, no rashes or lesions noted CBC, BMP 01/02/19 05:25 01/02/19 06:25 Active Medications Acetaminophen (Ofirmev Injection -) 1,000 mg IVPB Q6H PRN PRN Reason: PAIN LEVEL 1-5 Last Admin: 01/02/19 21:37 Dose: 1,000 mg Chlorhexidine Gluconate (Hibiclens For Decolonization -) 1 applic TP HS [facility] Last Admin: 01/02/19 21:13 Dose: 1 applic Octreotide Acetate 200 mcg/Octreotide Acetate 1,000 mcg/Dextrose 500 mls @ 20.833 mls/hr IVPB ASDIR DEVYN Last Admin: 01/02/19 10:32 Dose: Not Given Ceftriaxone Sodium 1 gm/ (Dextrose) 50 mls @ 100 mls/hr IVPB DAILY [facility]; Protocol Last Admin: 01/02/19 15:40 Dose: 100 mls/hr Metoclopramide HCl (Reglan Injection -) 10 mg IVPUSH Q6H PRN PRN Reason: NAUSEA AND/OR VOMITING Last Admin: 01/02/19 13:41 Dose: 10 mg Mupirocin (Bactroban Ointment (For Decolonization) -) 1 applic NS BID DEVYN Stop: 01/05/19 21:59 Last Admin: 01/02/19 21:11 Dose: 1 applic Nadolol (Corgard -) 20 mg PO DAILY [facility] Last Admin: 01/02/19 13:40 Dose: 20 mg Pantoprazole Sodium (Protonix Iv) 40 mg IVPUSH BID [facility] Last Admin: 01/02/19 21:09 Dose: 40 mg Microbiology 12/31/18 22:30 Urine - Urine - Catheterized Urine Culture - Final NO GROWTH OBTAINED ASSESSMENT AND PLAN: s/p Acute Respiratory Failure GI Bleed Esophageal Varices s/p Banding Acute Blood Loss Anemia Alcohol Abuse Liver Cirrhosis Coagulopathy Elevated LFTs --varices in distal esophagus, underwent EGD w/ banding (x4) --Follow H/H --Vitamin K and FFP for INR reversal --Continue octreotide gtt --Continue Protonix BID --Echo reviewed --Ceftriazone 1gm qdaily for ppx --Can downgrade <Edmond Yi - Last Filed: 01/02/19 21:37> - Note Progress Note: Seen and examined; discussed with resident team and ICU consultants. 45 minutes spent. Agree with resident documentation aside from as supplemented by myself. I independently verified all longo historical and PE findings. Extubated this AM; no new complaints. No further bleeding and vitals stable. 10 sys ROS done and negative aside from HPI VS, labs, imaging reviewed NAD, AAO, resting in bed Mild tenderness, ND, +BS CN2-12 wnl, no fnd Normal mood, appropriate behavior. A/P: Remains in ICU sp extubation, banding for variceal bleed. Problems include: -Hemorrhagic Shock 2/2 Upper GIB -Variceal Bleed s/p banding POD1 -Cirrhosis of the liver -Severe coagulopathy likely 2/2 cirrhosis -Transaminitis -Severe hypoalbuminemia -Hypophosphatemia -Hypernatremia, hyperchloremia (changing to LR from NS) -S/P intubation (for airway protection done periprocedurally) Considering TIPS; would need tertiary transfer. Will discuss with GI and ICU and help facilitate if neeeded. He can likely go to the floor. Continue meds as documented. Full Code <Robert Varghese - Last Filed: 01/03/19 09:16>
[2019-01-02] MEDS: ACETAMINOPHEN 1000 MG/100 ML VIAL (NON FORMULARY) IVPB PRN (21:37)
[2019-01-03 07:20] LABS: BASO % 0.6 % (0-2.0); HEMOGLOBIN 8.5 GM/dL (11.7-16.9); LYMPH % 15.2 % (8-40); MCH 33.1 pg (25.7-33.7); MCHC 34.1 g/dl (32.0-35.9); MEAN CELL VOLUME 97.2 fl (80-96); MEAN PLT VOLUME 8.8 fl (7.5-11.1); MONO % 4.1 % (3.8-10.2); NEUT % 75.1 % (42.8-82.8); PLATELET COUNT 147 K/MM3 (134-434); RBC 2.57 M/mm3 (4.00-5.60); RDW 18.3 % (11.9-15.9); WHITE BLOOD COUNT 10.6 K/mm3 (4.0-10.0)
[2019-01-03 07:33] LABS: INR 1.9 (0.83-1.09); PROTHROMBIN TIME (PATIENT) 22.6 SEC (9.7-13.0)
[2019-01-03 07:34] LABS: ACTIVATED PTT 43.2 SECONDS (25.2-36.5)
[2019-01-03 07:36] LABS: ALBUMIN 1.8 g/dl (3.4-5.0); BILIRUBIN,TOTAL 5.6 mg/dL (0.2-1); BLOOD UREA NITROGEN 10.4 mg/dL (7-18); CREATININE 0.7 mg/dL (0.55-1.3); MAGNESIUM 1.8 mg/dL (1.8-2.4); PHOSPHOROUS 2.4 mg/dL (2.5-4.9); POTASSIUM 3.5 mmol/L (3.5-5.1); TOT PROT 6.1 g/dl (6.4-8.2)
[2019-01-03 07:38] LABS: CALCIUM 6.7 mg/dL (8.5-10.1)
--- NOTE | 2019-01-03 09:12 | PN ---
Physical Exam: SUBJECTIVE: Patient seen and examined; Hb stable, INR slgihtly up but still <2. Pending potential xf to [facility] for TIPS. 10 sys ROS done and negative aside from HPI OBJECTIVE: Vital Signs Period Temp Pulse Resp BP Sys/Taveras Pulse Ox Last 24 Hr 98 F-98.7 F 65-79 12-18 90-126/49-89 100-100 GENERAL: The patient is awake, alert, and fully oriented, in no acute distress. HEAD: Normal with no signs of trauma. EYES: PERRL, extraocular movements intact, sclera anicteric ENT: Ears normal, nares patent, oropharynx clear without exudates NECK: Trachea midline, full range of motion, supple. LUNGS: Breath sounds equal, clear to auscultation bilaterally, no wheezes HEART: Regular rate and rhythm, S1, S2 without murmur, rub or gallop. ABDOMEN: Soft, vaguely mild tender, nondistended, normoactive bowel sounds EXTREMITIES: 2+ pulses, warm, well-perfused, no edema. NEUROLOGICAL: Cranial nerves II through XII grossly intact. Normal speech, gait not observed. PSYCH: Normal mood, normal affect. SKIN: Warm, dry, normal turgor, no rashes or lesions noted Laboratory Results - last 24 hr 01/01/19 01/01/19 01/02/19 06:18 06:18 05:25 WBC RBC Hgb Hct MCV MCH MCHC RDW Plt Count MPV Absolute Neuts (auto) Neutrophils % Lymphocytes % Monocytes % Eosinophils % Basophils % Nucleated RBC % PT with INR INR PTT (Actin FS) Fibrinogen 229.0 L Sodium Potassium Chloride Carbon Dioxide Anion Gap BUN Creatinine Est GFR (CKD-EPI)AfAm Est GFR (CKD-EPI)NonAf Random Glucose Calcium Phosphorus Magnesium Total Bilirubin AST ALT Alkaline Phosphatase Total Protein Albumin Tumor Marker AFP 1.4 Hep A IgM Ab Confirm Negative Hepatitis A Ab Total Negative Hep Bs Antigen Negative Hep Bs Antibody Non reactive Hep B Core Total Ab Negative Hep B Core IgM Ab Negative Hepatitis Be Antibody Negative Hepatitis Be Antigen Negative Hep C Ab Diagnostic 0.2 01/03/19 01/03/19 01/03/19 05:25 06:25 06:25 WBC 10.6 H RBC 2.57 L Hgb 8.5 L Hct 25.0 L MCV 97.2 H MCH 33.1 MCHC 34.1 RDW 18.3 H Plt Count 147 MPV 8.8 Absolute Neuts (auto) 7.9 Neutrophils % 75.1 Lymphocytes % 15.2 Monocytes % 4.1 Eosinophils % 5.0 H Basophils % 0.6 Nucleated RBC % 0 PT with INR 22.60 H INR 1.90 H PTT (Actin FS) 43.2 H Fibrinogen Sodium 140 Potassium 3.5 Chloride 108 H Carbon Dioxide 26 Anion Gap 7 L BUN 10.4 Creatinine 0.7 Est GFR (CKD-EPI)AfAm 119.72 Est GFR (CKD-EPI)NonAf 103.30 Random Glucose 103 Calcium 6.7 L* Phosphorus 2.4 L Magnesium 1.8 Total Bilirubin 5.6 H AST 75 H ALT 18 Alkaline Phosphatase 237 H Total Protein 6.1 L Albumin 1.8 L Tumor Marker AFP Hep A IgM Ab Confirm Hepatitis A Ab Total Hep Bs Antigen Hep Bs Antibody Hep B Core Total Ab Hep B Core IgM Ab Hepatitis Be Antibody Hepatitis Be Antigen Hep C Ab Diagnostic Active Medications Generic Name Dose Route Start Last Admin Trade Name Freq PRN Reason Stop Dose Admin Acetaminophen 1,000 mg 01/01/19 14:16 01/02/19 21:37 Ofirmev Injection - IVPB 1,000 mg Q6H PRN Administration PAIN LEVEL 1-5 Chlorhexidine Gluconate 1 applic 12/31/18 22:00 01/02/19 21:13 Hibiclens For Decolonization - TP 1 applic HS DEVYN Administration Octreotide Acetate 200 mcg/ 500 mls @ 20.833 mls/hr 12/31/18 11:15 01/02/19 19:00 Octreotide Acetate 1,000 mcg/ IVPB 20.833 mls/hr Dextrose ASDIR DEVYN Administration Ceftriaxone Sodium 1 gm/ 50 mls @ 100 mls/hr 01/02/19 14:15 01/02/19 15:40 Dextrose IVPB 100 mls/hr DAILY DEVYN Administration Protocol Metoclopramide HCl 10 mg 12/31/18 14:00 01/02/19 13:41 Reglan Injection - IVPUSH 10 mg Q6H PRN Administration NAUSEA AND/OR VOMITING Mupirocin 1 applic 12/31/18 22:00 01/02/19 21:11 Bactroban Ointment (For Decolonization) - NS 01/05/19 21:59 1 applic BID DEVYN Administration Nadolol 20 mg 01/02/19 12:30 10/14/19 13:40 Corgard - PO 20 mg DAILY DEVYN Administration Pantoprazole Sodium 40 mg 12/31/18 22:00 01/02/19 21:09 Protonix Iv IVPUSH 40 mg BID DEVYN Administration ASSESSMENT/PLAN: Patient remains in ICU s/p EGD with banding for acute hemorrhagic shock secondary to cirrhosis with varices. Pending potential XF for TIPS; patietn is considering but leaning towards it per our discussion this AM. Problems include: -Hemorrhagic Shock 2/2 Upper GIB -Variceal Bleed s/p banding POD3 -Cirrhosis of the liver -Severe coagulopathy likely 2/2 cirrhosis -Transaminitis -Severe hypoalbuminemia -Hypophosphatemia -Hypernatremia, hyperchloremia (changing to LR from NS) -S/P intubation (for airway protection done periprocedurally) Continue protonix and octreotide, continue nadalol, abx per GI. Monitor MELD labs. Considering TIPS; would need tertiary transfer. Will discuss with GI and ICU and help facilitate if needed. He can likely go to the floor. Continue meds as documented. Visit type - Emergency Visit Emergency Visit: Yes ED Registration Date: 12/31/18 Care time: The patient presented to the Emergency Department on the above date and was hospitalized for further evaluation of their emergent condition. - New Patient This patient is new to me today: No - Critical Care Critical Care patient: Yes Total Critical Care Time (in minutes): 30 Critical Care Statement: The care of this patient involved high complexity decision making to prevent further life threatening deterioration of the patient 's condition and/or to evaluate & treat vital organ system(s) failure or risk of failure.
[2019-01-03] MEDS ORDERED: PT OWN MED DRAWER 7, Y5N ONE ×2 (10:47→17:45)
[2019-01-03] MEDS ORDERED: DEXTROSE 5%-WATER - 50 ML IVPB ONE (10:47)
[2019-01-03] MEDS ORDERED: cefTRIAXone SODIUM 1 GM VIAL ONE (10:47)
[2019-01-03] MEDS: CEFTRIAXONE 1 GM in DEXTROSE 5%-WATER - 50 ML IVPB SCH (10:51)
[2019-01-03] MEDS: NADOLOL 20 MG TABLET (FP) PO SCH (11:02)
[2019-01-03] MEDS: PANTOPRAZOLE SODIUM 40 MG VIAL IVPUSH SCH ×2 (11:02→22:23)
[2019-01-03] MEDS: MUPIROCIN 2% TOPICAL OINTMENT FOR DECOLONIZATION NS SCH ×2 (11:04→21:58)
--- NOTE | 2019-01-03 12:10 | PN ---
Teaching Attending Note Name of Resident: Christine Polo ATTENDING PHYSICIAN STATEMENT I saw and evaluated the patient. I reviewed the resident's note and discussed the case with the resident. I agree with the resident's findings and plan as documented. SUBJECTIVE: Pt seen and examined in the ICU. No further bleeding. Remains on octreotide gtt. Tolerating clears. OBJECTIVE: Vital Signs Period Temp Pulse Resp BP Sys/Taveras Pulse Ox Last 24 Hr 98 F-98.7 F 65-79 12-18 90-126/49-89 100-100 Intake & Output 12/31/18 01/01/19 01/02/19 01/03/19 23:59 23:59 23:59 23:59 Intake Total 850 3029 779.6 740 Output Total 1700 1670 850 Balance 850 1329 -890.4 -110 Weight 92.533 kg 92.533 kg 92.533 kg Gen: NAD at rest Heart: RRR Lung: decreased breath sounds at the bases Abd: soft, nontender Ext: no edema CBC, BMP 01/03/19 06:25 01/03/19 06:25 Active Medications Chlorhexidine Gluconate (Hibiclens For Decolonization -) 1 applic TP HS DEVYN Last Admin: 01/02/19 21:13 Dose: 1 applic Octreotide Acetate 200 mcg/Octreotide Acetate 1,000 mcg/Dextrose 500 mls @ 20.833 mls/hr IVPB ASDIR DEVYN Last Admin: 01/02/19 19:00 Dose: 20.833 mls/hr Ceftriaxone Sodium 1 gm/ (Dextrose) 50 mls @ 100 mls/hr IVPB DAILY DEVYN; Protocol Last Admin: 01/03/19 10:51 Dose: 100 mls/hr Metoclopramide HCl (Reglan Injection -) 10 mg IVPUSH Q6H PRN PRN Reason: NAUSEA AND/OR VOMITING Last Admin: 01/02/19 13:41 Dose: 10 mg Mupirocin (Bactroban Ointment (For Decolonization) -) 1 applic NS BID DEVYN Stop: 01/05/19 21:59 Last Admin: 01/03/19 11:04 Dose: 1 applic Nadolol (Corgard -) 20 mg PO DAILY DEVYN Last Admin: 01/03/19 11:02 Dose: 20 mg Pantoprazole Sodium (Protonix Iv) 40 mg IVPUSH BID [facility] Last Admin: 01/03/19 11:02 Dose: 40 mg ASSESSMENT AND PLAN: s/p Acute Respiratory Failure GI Bleed Esophageal Varices s/p Banding Acute Blood Loss Anemia Alcohol Abuse Liver Cirrhosis Coagulopathy Elevated LFTs - monitor H/H - transfuse as needed - continue protonix - complete octreotide gtt - nadolol - PO per GI - DVT prophylaxis - can monitor on floor
--- NOTE | 2019-01-03 13:49 | PN ---
Physical Exam: SUBJECTIVE: Patient seen and examined at bedside. pt states that he still has L flank pain but states he is feeling better. pt states that he does not want to go for TIPS but he does want to go for detox. OBJECTIVE: Vital Signs Period Temp Pulse Resp BP Sys/Taveras Pulse Ox Last 24 Hr 98 F-98.7 F 64-79 12-18 90-126/49-89 100-100 GENERAL: The patient is awake, alert, and fully oriented, in no acute distress. LUNGS: Breath sounds equal, clear to auscultation bilaterally, no accessory muscle use. HEART: Regular rate and rhythm, S1, S2 ABDOMEN: Soft, nontender, nondistended, normoactive bowel sounds, no guarding. EXTREMITIES: 2+ pulses, warm, well-perfused, no edema. SKIN: Warm, dry, normal turgor, no rashes or lesions noted Laboratory Last Values WBC 10.6 K/mm3 (4.0-10.0) H 01/03/19 06:25 RBC 2.57 M/mm3 (4.00-5.60) L 01/03/19 06:25 Hgb 8.5 GM/dL (11.7-16.9) L 01/03/19 06:25 Hct 25.0 % (35.4-49) L 01/03/19 06:25 MCV 97.2 fl (80-96) H 01/03/19 06:25 MCH 33.1 pg (25.7-33.7) 01/03/19 06:25 MCHC 34.1 g/dl (32.0-35.9) 01/03/19 06:25 RDW 18.3 % (11.9-15.9) H 01/03/19 06:25 Plt Count 147 K/MM3 (134-434) 01/03/19 06:25 MPV 8.8 fl (7.5-11.1) 01/03/19 06:25 Absolute Neuts (auto) 7.9 K/mm3 (1.5-8.0) 01/03/19 06:25 Neutrophils % 75.1 % (42.8-82.8) 01/03/19 06:25 Lymphocytes % 15.2 % (8-40) 01/03/19 06:25 Monocytes % 4.1 % (3.8-10.2) 01/03/19 06:25 Eosinophils % 5.0 % (0-4.5) H 01/03/19 06:25 Basophils % 0.6 % (0-2.0) 01/03/19 06:25 Nucleated RBC % 0 % (0-0) 01/03/19 06:25 PT with INR 22.60 SEC (9.7-13.0) H 01/03/19 05:25 INR 1.90 (0.83-1.09) H 01/03/19 05:25 PTT (Actin FS) 43.2 SECONDS (25.2-36.5) H 01/03/19 05:25 Fibrinogen 229.0 mg/dL (238-498) L 01/02/19 05:25 Anticoagulation Therapy No Result Required. 12/31/18 20:20 Puncture Site Left radial 12/31/18 20:20 ABG pH 7.40 (7.35-7.45) 12/31/18 20:20 ABG pCO2 at Pt Temp 39.9 mmHg (35-45) 12/31/18 20:20 ABG pO2 at Pt Temp 96.2 mmHg (80-100) 12/31/18 20:20 ABG HCO3 25 mmol/L (22-27) 12/31/18 20:20 ABG O2 Sat (Measured) 97.2 % (95-98) 12/31/18 20:20 ABG O2 Content No Result Required. 12/31/18 20:20 ABG Base Excess 0.9 meq/l (-2-2) 12/31/18 20:20 James Test Positive 12/31/18 20:20 O2 Delivery Device No Result Required. 12/31/18 20:20 Oxygen Flow Rate Vent 12/31/18 20:20 Vent Mode No Result Required. 12/31/18 20:20 Vent Rate No Result Required. 12/31/18 20:20 Mechanical Rate No Result Required. 12/31/18 20:20 Pressure Support Vent No Result Required. 12/31/18 20:20 Sodium 140 mmol/L (136-145) 01/03/19 06:25 Potassium 3.5 mmol/L (3.5-5.1) 01/03/19 06:25 Chloride 108 mmol/L (98-107) H 01/03/19 06:25 Carbon Dioxide 26 mmol/L (21-32) 01/03/19 06:25 Anion Gap 7 MMOL/L (8-16) L 01/03/19 06:25 BUN 10.4 mg/dL (7-18) 01/03/19 06:25 Creatinine 0.7 mg/dL (0.55-1.3) 01/03/19 06:25 Est GFR (CKD-EPI)AfAm 119.72 01/03/19 06:25 Est GFR (CKD-EPI)NonAf 103.30 01/03/19 06:25 Random Glucose 103 mg/dL (74-106) 01/03/19 06:25 Lactic Acid 1.6 mmol/L (0.4-2.0) 12/31/18 20:00 Calcium 6.7 mg/dL (8.5-10.1) L* 01/03/19 06:25 Phosphorus 2.4 mg/dL (2.5-4.9) L 01/03/19 06:25 Magnesium 1.8 mg/dL (1.8-2.4) 01/03/19 06:25 Iron 47 ug/dL (50-175) L 01/02/19 05:25 TIBC 112 ug/dL (250-450) L 01/02/19 05:25 Iron Saturation 41 % (17.5-39) H 01/02/19 05:25 Unsaturated IBC 65 ug/dL (200-275) L 01/02/19 05:25 Ferritin 624.5 ng/ml (8-388) H 01/02/19 05:25 Total Bilirubin 5.6 mg/dL (0.2-1) H 01/03/19 06:25 AST 75 U/L (15-37) H 01/03/19 06:25 ALT 18 U/L (13-61) 01/03/19 06:25 Alkaline Phosphatase 237 U/L (45-117) H 01/03/19 06:25 Ammonia 86.30 umol/L (11-32) H 12/31/18 20:00 Creatine Kinase 38 U/L (26-308) 12/31/18 11:45 Troponin I < 0.02 ng/ml (0.00-0.05) 12/31/18 11:45 B-Natriuretic Peptide 118.2 pg/ml (5-125) 01/01/19 06:18 Total Protein 6.1 g/dl (6.4-8.2) L 01/03/19 06:25 Albumin 1.8 g/dl (3.4-5.0) L 01/03/19 06:25 Lipase 86 U/L (73-393) 12/31/18 11:45 Tumor Marker AFP 1.4 ng/ml (0.0-8.3) 01/01/19 06:18 Vitamin B12 1219 pg/ml (193-986) H 01/02/19 05:25 Serum Folate 15 ng/mL (3.1-17.5) 01/02/19 06:25 TSH 0.36 uIU/ml (0.358-3.74) 01/01/19 06:18 Stool Occult Blood Positive (NEGATIVE) 12/31/18 11:30 Alcohol, Quantitative < 3.0 mg/dL (0.0-5.0) 12/31/18 11:45 Hep A IgM Ab Confirm Negative (Negative) 01/01/19 06:18 Hepatitis A Ab Total Negative (Negative) 01/01/19 06:18 Hep Bs Antigen Negative (Negative) 01/01/19 06:18 Hep Bs Antibody Non reactive (.) 01/01/19 06:18 Hep B Core Total Ab Negative (Negative) 01/01/19 06:18 Hep B Core IgM Ab Negative (Negative) 01/01/19 06:18 Hepatitis Be Antibody Negative (Negative) 01/01/19 06:18 Hepatitis Be Antigen Negative (Negative) 01/01/19 06:18 Hep C Ab Diagnostic 0.2 s/co ratio (0.0-0.9) 01/01/19 06:18 Blood Type O POSITIVE 12/31/18 11:45 Antibody Screen Negative 12/31/18 11:45 Crossmatch See Detail 12/31/18 11:45 Current Medications Chlorhexidine Gluconate (Hibiclens For Decolonization -) 1 applic TP HS DEVYN Last Admin: 01/02/19 21:13 Dose: 1 applic Octreotide Acetate 200 mcg/Octreotide Acetate 1,000 mcg/Dextrose 500 mls @ 20.833 mls/hr IVPB ASDIR DEVYN Last Admin: 01/02/19 19:00 Dose: 20.833 mls/hr Ceftriaxone Sodium 1 gm/ (Dextrose) 50 mls @ 100 mls/hr IVPB DAILY DEVYN; Protocol Last Admin: 01/03/19 10:51 Dose: 100 mls/hr Metoclopramide HCl (Reglan Injection -) 10 mg IVPUSH Q6H PRN PRN Reason: NAUSEA AND/OR VOMITING Last Admin: 01/02/19 13:41 Dose: 10 mg Mupirocin (Bactroban Ointment (For Decolonization) -) 1 applic NS BID [facility] Stop: 01/05/19 21:59 Last Admin: 01/03/19 11:04 Dose: 1 applic Nadolol (Corgard -) 20 mg PO DAILY [facility] Last Admin: 01/03/19 11:02 Dose: 20 mg Pantoprazole Sodium (Protonix Iv) 40 mg IVPUSH BID [facility] Last Admin: 01/03/19 11:02 Dose: 40 mg ASSESSMENT/PLAN: 58 yo with PMH alcohol abuse and recent detox presented with 2 days history of hematemesis and melena/ BRBPR , admitted to ICU for GIB 2/2 variceal bleed. Neuro AAOx3 -responds to commands GI: Esophageal variceal bleed, alcoholic liver cirrhosis -multiple varices in distal esophagus, underwent EGD w/ banding (x4) -cont to follow H/H -received 4 units PRBCs, 1 FFP - adequate rise -will give vitk x 1, additional unit FFP to help reverse INR -c/w octreotide gtt, protonix BID -ECHO ordered by primary team. - c/w ceftriaxone 1g daily, day 2/5. s/p levaquin -potential transfer to [facility] with pt for TIPS eval. pt states he has had extensive conversations and does not wish to pursue F/E/N continue to follow lytes clear liquid diet PPX: SCD's; as w/ GIB Dispo: transfer to medicine Visit type - Emergency Visit Emergency Visit: No - New Patient This patient is new to me today: No - Critical Care Critical Care patient: Yes Total Critical Care Time (in minutes): 36 Critical Care Statement: The care of this patient involved high complexity decision making to prevent further life threatening deterioration of the patient 's condition and/or to evaluate & treat vital organ system(s) failure or risk of failure. ATTENDING PHYSICIAN STATEMENT I saw and evaluated the patient. I reviewed the resident's note and discussed the case with the resident. I agree with the resident's findings and plan as documented. SUBJECTIVE: OBJECTIVE: ASSESSMENT AND PLAN:
--- NOTE | 2019-01-03 16:33 | PN.GI ---
GI Progress Note Subjective: No overt bleeding No BM No acute events Complains of left sided abdominal pain (this was a complaint prior to procedure as well) - Objective Vital Signs: Vital Signs Temperature 98.8 F 01/03/19 14:00 Pulse Rate 64 01/03/19 14:00 Respiratory Rate 15 01/03/19 14:00 Blood Pressure 110/70 01/03/19 14:00 O2 Sat by Pulse Oximetry (%) 100 01/03/19 09:00 Constitutional: Calm Eyes: No: Sclera Icterus Cardiovascular: Yes: Regular Rate and Rhythm Gastrointestinal Inspection: No: Distention ...Auscultate: Yes: Normoactive Bowel Sounds ...Palpate: Yes: Soft, Tenderness (Mild TTP left abdomen), Tenderness, Epigastium. No: Guarding, Tenderness, Rebound ...Percussion: No: Tympanitic Neurological: Yes: Alert. No: Asterixis Labs: CBC, BMP 01/03/19 06:25 01/03/19 06:25 INR, PTT INR 1.90 (0.83-1.09) H 01/03/19 05:25 Fibrinogen 229.0 mg/dL (238-498) L 01/02/19 05:25 Laboratory Tests 01/01/19 01/01/19 06:18 06:18 Tumor Marker AFP 1.4 Hep A IgM Ab Confirm Negative Hepatitis A Ab Total Negative Hep Bs Antigen Negative Hep Bs Antibody Non reactive Hep B Core Total Ab Negative Hep B Core IgM Ab Negative Hepatitis Be Antibody Negative Hepatitis Be Antigen Negative Hep C Ab Diagnostic 0.2 Problem List - Problems (1) Varices of esophagus determined by endoscopy Assessment/Plan: No overt bleeding, S/P banding x 4 01/01 Advance to full liquids in AM Continue octreotide drip Nadolol has been started with heart rate 60's-70's. titrate to HR 55-60 as tolerated. Protonix 40mg daily Will need hep B vaccination Discussed transfer to [facility] with Mr. Miguel given the severity of his liver disease, further monitoring. If early rebleeding of esophageal varices, he would benefit from at least being evaluated for TIPS candidacy at a liver center. he has opted against this at the moment. Discussed with His Uncle Dr. Fonseca who said that he would speak further with Mr. Miguel. Agree with antibiotics for total 5 days. On ceftriaxone. Detox eval Code(s): I85.00 - ESOPHAGEAL VARICES WITHOUT BLEEDING
[2019-01-03] MEDS: OCTREOTIDE ACETATE 200 MCG, OCTREOTIDE ACETATE 1,000 MCG in DEXTROSE 5%-WATER - 496 ML IVPB SCH (17:46)
[2019-01-03] MEDS: CHLORHEXIDINE GLUCONATE 4% CLEANSER FOR DECOLONIZATION TP SCH (21:58)
[2019-01-03] MEDS ORDERED: OCTREOTIDE ACETATE 200 MCG, OCTREOTIDE ACETATE 1,000 MCG in DEXTROSE 5%-WATER - 496 ML IVPB SCH (22:30)
[2019-01-03] MEDS ORDERED: METOCLOPRAMIDE HCL INJECTION 10 MG/2 ML VIAL IVPUSH PRN (22:30)
[2019-01-03 22:57] VITALS: BP 101/55; PULSE 68; TEMP 98.2
--- NOTE | 2019-01-03 23:18 | DS ---
Physical Exam: SUBJECTIVE:SUBJECTIVE: Patient seen and examined at bedside. pt states that he still has L flank pain but states he is feeling better OBJECTIVE: Vital Signs Period Temp Pulse Resp BP Sys/Taveras Pulse Ox Last 24 Hr 98 F-98.7 F 64-79 12-18 90-126/49-89 100-100 GENERAL: The patient is awake, alert, and fully oriented, in no acute distress. LUNGS: Breath sounds equal, clear to auscultation bilaterally, no accessory muscle use. HEART: Regular rate and rhythm, S1, S2 ABDOMEN: Soft, nontender, nondistended, normoactive bowel sounds, no guarding. EXTREMITIES: 2+ pulses, warm, well-perfused, no edema. SKIN: Warm, dry, normal turgor, no rashes or lesions noted Laboratory Last Values WBC 10.6 K/mm3 (4.0-10.0) H 01/03/19 06:25 RBC 2.57 M/mm3 (4.00-5.60) L 01/03/19 06:25 Hgb 8.5 GM/dL (11.7-16.9) L 01/03/19 06:25 Hct 25.0 % (35.4-49) L 01/03/19 06:25 MCV 97.2 fl (80-96) H 01/03/19 06:25 MCH 33.1 pg (25.7-33.7) 01/03/19 06:25 MCHC 34.1 g/dl (32.0-35.9) 01/03/19 06:25 RDW 18.3 % (11.9-15.9) H 01/03/19 06:25 Plt Count 147 K/MM3 (134-434) 01/03/19 06:25 MPV 8.8 fl (7.5-11.1) 01/03/19 06:25 Absolute Neuts (auto) 7.9 K/mm3 (1.5-8.0) 01/03/19 06:25 Neutrophils % 75.1 % (42.8-82.8) 01/03/19 06:25 Lymphocytes % 15.2 % (8-40) 01/03/19 06:25 Monocytes % 4.1 % (3.8-10.2) 01/03/19 06:25 Eosinophils % 5.0 % (0-4.5) H 01/03/19 06:25 Basophils % 0.6 % (0-2.0) 01/03/19 06:25 Nucleated RBC % 0 % (0-0) 01/03/19 06:25 PT with INR 22.60 SEC (9.7-13.0) H 01/03/19 05:25 INR 1.90 (0.83-1.09) H 01/03/19 05:25 PTT (Actin FS) 43.2 SECONDS (25.2-36.5) H 01/03/19 05:25 Fibrinogen 229.0 mg/dL (238-498) L 01/02/19 05:25 Anticoagulation Therapy No Result Required. 12/31/18 20:20 Puncture Site Left radial 12/31/18 20:20 ABG pH 7.40 (7.35-7.45) 12/31/18 20:20 ABG pCO2 at Pt Temp 39.9 mmHg (35-45) 12/31/18 20:20 ABG pO2 at Pt Temp 96.2 mmHg (80-100) 12/31/18 20:20 ABG HCO3 25 mmol/L (22-27) 12/31/18 20:20 ABG O2 Sat (Measured) 97.2 % (95-98) 12/31/18 20:20 ABG O2 Content No Result Required. 12/31/18 20:20 ABG Base Excess 0.9 meq/l (-2-2) 12/31/18 20:20 James Test Positive 12/31/18 20:20 O2 Delivery Device No Result Required. 12/31/18 20:20 Oxygen Flow Rate Vent 12/31/18 20:20 Vent Mode No Result Required. 12/31/18 20:20 Vent Rate No Result Required. 12/31/18 20:20 Mechanical Rate No Result Required. 12/31/18 20:20 Pressure Support Vent No Result Required. 12/31/18 20:20 Sodium 140 mmol/L (136-145) 01/03/19 06:25 Potassium 3.5 mmol/L (3.5-5.1) 01/03/19 06:25 Chloride 108 mmol/L (98-107) H 01/03/19 06:25 Carbon Dioxide 26 mmol/L (21-32) 01/03/19 06:25 Anion Gap 7 MMOL/L (8-16) L 01/03/19 06:25 BUN 10.4 mg/dL (7-18) 01/03/19 06:25 Creatinine 0.7 mg/dL (0.55-1.3) 01/03/19 06:25 Est GFR (CKD-EPI)AfAm 119.72 01/03/19 06:25 Est GFR (CKD-EPI)NonAf 103.30 01/03/19 06:25 Random Glucose 103 mg/dL (74-106) 01/03/19 06:25 Lactic Acid 1.6 mmol/L (0.4-2.0) 12/31/18 20:00 Calcium 6.7 mg/dL (8.5-10.1) L* 01/03/19 06:25 Phosphorus 2.4 mg/dL (2.5-4.9) L 01/03/19 06:25 Magnesium 1.8 mg/dL (1.8-2.4) 01/03/19 06:25 Iron 47 ug/dL (50-175) L 01/02/19 05:25 TIBC 112 ug/dL (250-450) L 01/02/19 05:25 Iron Saturation 41 % (17.5-39) H 01/02/19 05:25 Unsaturated IBC 65 ug/dL (200-275) L 01/02/19 05:25 Ferritin 624.5 ng/ml (8-388) H 01/02/19 05:25 Total Bilirubin 5.6 mg/dL (0.2-1) H 01/03/19 06:25 AST 75 U/L (15-37) H 01/03/19 06:25 ALT 18 U/L (13-61) 01/03/19 06:25 Alkaline Phosphatase 237 U/L (45-117) H 01/03/19 06:25 Ammonia 86.30 umol/L (11-32) H 12/31/18 20:00 Creatine Kinase 38 U/L (26-308) 12/31/18 11:45 Troponin I < 0.02 ng/ml (0.00-0.05) 12/31/18 11:45 B-Natriuretic Peptide 118.2 pg/ml (5-125) 01/01/19 06:18 Total Protein 6.1 g/dl (6.4-8.2) L 01/03/19 06:25 Albumin 1.8 g/dl (3.4-5.0) L 01/03/19 06:25 Lipase 86 U/L (73-393) 12/31/18 11:45 Tumor Marker AFP 1.4 ng/ml (0.0-8.3) 01/01/19 06:18 Vitamin B12 1219 pg/ml (193-986) H 01/02/19 05:25 Serum Folate 15 ng/mL (3.1-17.5) 01/02/19 06:25 TSH 0.36 uIU/ml (0.358-3.74) 01/01/19 06:18 Stool Occult Blood Positive (NEGATIVE) 12/31/18 11:30 Alcohol, Quantitative < 3.0 mg/dL (0.0-5.0) 12/31/18 11:45 Hep A IgM Ab Confirm Negative (Negative) 01/01/19 06:18 Hepatitis A Ab Total Negative (Negative) 01/01/19 06:18 Hep Bs Antigen Negative (Negative) 01/01/19 06:18 Hep Bs Antibody Non reactive (.) 01/01/19 06:18 Hep B Core Total Ab Negative (Negative) 01/01/19 06:18 Hep B Core IgM Ab Negative (Negative) 01/01/19 06:18 Hepatitis Be Antibody Negative (Negative) 01/01/19 06:18 Hepatitis Be Antigen Negative (Negative) 01/01/19 06:18 Hep C Ab Diagnostic 0.2 s/co ratio (0.0-0.9) 01/01/19 06:18 Blood Type O POSITIVE 12/31/18 11:45 Antibody Screen Negative 12/31/18 11:45 Crossmatch See Detail 12/31/18 11:45 Current Medications Chlorhexidine Gluconate (Hibiclens For Decolonization -) 1 applic TP HS DEVYN Last Admin: 01/02/19 21:13 Dose: 1 applic Octreotide Acetate 200 mcg/Octreotide Acetate 1,000 mcg/Dextrose 500 mls @ 20.833 mls/hr IVPB ASDIR DEVYN Last Admin: 01/02/19 19:00 Dose: 20.833 mls/hr Ceftriaxone Sodium 1 gm/ (Dextrose) 50 mls @ 100 mls/hr IVPB DAILY DEVYN; Protocol Last Admin: 01/03/19 10:51 Dose: 100 mls/hr Metoclopramide HCl (Reglan Injection -) 10 mg IVPUSH Q6H PRN PRN Reason: NAUSEA AND/OR VOMITING Last Admin: 01/02/19 13:41 Dose: 10 mg Mupirocin (Bactroban Ointment (For Decolonization) -) 1 applic NS BID [facility] Stop: 01/05/19 21:59 Last Admin: 01/03/19 11:04 Dose: 1 applic Nadolol (Corgard -) 20 mg PO DAILY [facility] Last Admin: 01/03/19 11:02 Dose: 20 mg Pantoprazole Sodium (Protonix Iv) 40 mg IVPUSH BID [facility] Last Admin: 01/03/19 11:02 Dose: 40 mg ASSESSMENT/PLAN: 58 yo with PMH alcohol abuse and recent detox presented with 2 days history of hematemesis and melena/ BRBPR , admitted to ICU for GIB 2/2 variceal bleed. 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 - c/w ceftriaxone 1g daily, day 2/5. s/p levaquin -potential transfer to [facility] with pt for TIPS eval. pt states he has had extensive conversations and does not wish to pursue F/E/N continue to follow lytes clear liquid diet PPX: SCD's; as w/ GIB Date of Admission:12/31/18 Date of Discharge: 01/03/19 Discharge Summary Problems reviewed: Yes Reason For Visit: HEMATEMESIS Current Active Problems Abdominal pain (Acute) Cirrhosis of liver (Acute) GIB (gastrointestinal bleeding) (Acute) Hematemesis (Acute) Prophylactic measure (Acute) Varices of esophagus determined by endoscopy (Acute) Condition: Stable - Instructions Referrals: ON STAFF,NOT [Primary Care Provider] - - Home Medications Comprehensive Discharge Medication List: Ambulatory Orders NK [No Known Home Medication] 12/14/18 ATTENDING PHYSICIAN STATEMENT I saw and evaluated the patient. I reviewed the resident's note and discussed the case with the resident. I agree with the resident's findings and plan as documented. SUBJECTIVE: OBJECTIVE: ASSESSMENT AND PLAN:
[2019-01-04] MEDS ORDERED: PANTOPRAZOLE SODIUM 40 MG VIAL IVPUSH SCH (10:00)
[2019-01-04] MEDS ORDERED: CEFTRIAXONE 1 GM in DEXTROSE 5%-WATER - 50 ML IVPB SCH (10:00)
[2019-01-04] MEDS ORDERED: MUPIROCIN 2% TOPICAL OINTMENT FOR DECOLONIZATION NS SCH (10:00)
[2019-01-04] MEDS ORDERED: NADOLOL 20 MG TABLET (FP) PO SCH (10:00)
[2019-01-04] MEDS ORDERED: CHLORHEXIDINE GLUCONATE 4% CLEANSER FOR DECOLONIZATION TP SCH (22:00)
== END 2019-01-04 01:00 | disposition short-term general hospital (02) | DRG 950 ==
LOC: JER 10:17 → JERBED 13:52 → JICU 19:33 → J6S 01-03 21:39
PROVIDERS: ADMIT Internal Medicine; ATTEND Internal Medicine
PROC: 30233K1 Transfusion of Nonautologous Frozen Plasma into Peripheral Vein, Percutaneous Approach (ICD-10-PCS; 2018-12-31)
PROC: 30233N1 Transfusion of Nonautologous Red Blood Cells into Peripheral Vein, Percutaneous Approach (ICD-10-PCS; 2018-12-31)
PROC: 0CHY7BZ Insertion of Airway into Mouth and Throat, Via Natural or Artificial Opening (ICD-10-PCS; 2018-12-31)
PROC: 5A1945Z Respiratory Ventilation, 24-96 Consecutive Hours (ICD-10-PCS; 2018-12-31)
PROC: 06L34CZ Occlusion of Esophageal Vein with Extraluminal Device, Percutaneous Endoscopic Approach (ICD-10-PCS; principal; 2018-12-31 16:35)
DX: K70.30 Alcoholic cirrhosis of liver without ascites (principal); I85.11 Secondary esophageal varices with bleeding; K92.0 Hematemesis; D18.09 Hemangioma of other sites; F10.20 Alcohol dependence, uncomplicated; D62 Acute posthemorrhagic anemia; D72.829 Elevated white blood cell count, unspecified; G62.9 Polyneuropathy, unspecified; R91.8 Other nonspecific abnormal finding of lung field; D68.9 Coagulation defect, unspecified; R57.8 Other shock; E88.09 Other disorders of plasma-protein metabolism, not elsewhere classified; E83.39 Other disorders of phosphorus metabolism; E87.0 Hyperosmolality and hypernatremia; E87.8 Other disorders of electrolyte and fluid balance, not elsewhere classified; J96.00 Acute respiratory failure, unspecified whether with hypoxia or hypercapnia; R79.89 Other specified abnormal findings of blood chemistry
CPT/HCPCS: 36415; 36430; 36511; 36600; 71045-TC-FY; 80048; 80053; 80307; 82105; 82140; 82272; 82550; 82607; 82728; 82746; 82803; 83540; 83550; 83605; 83690; 83735; 83880; 84100; 84443; 84484; 85025; 85027; 85384; 85610; 85730; 86704; 86706; 86707; 86708; 86709; 86803; 86850; 86900; 86901; 86922; 87086; 87340; 90732; 93005; 93010; 93306-TC; 94002; 99285-25; G0009; J0131; J7030; P9017; P9038; P9058

== ENCOUNTER 2019-01-13 10:37 | Inpatient (IN) | payer OTHER ==
[2019-01-13 12:02] VITALS: BMI 29.9
--- NOTE | 2019-01-13 13:36 | HP ---
CIWA Score - Admission Criteria [facility] Guidelines: Admission for Medically Managed Detox: Requires at least one of the followin. CIWA greater than 12 2. Seizures within the past 24 hours 3. Delirium tremens within the past 24 hours 4. Hallucinations within the past 24 hours 5. Acute intervention needed for co occurring medical disorder 6. Acute intervention needed for co occurring psychiatric disorder 7. Severe withdrawal that cannot be handled at a lower level of care (continued vomiting, continued diarrhea, abnormal vital signs) requiring intravenous medication and/or fluids 8. 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 PMHX : Acute Respiratory Failure, GI Bleed, Esophageal Varices s/p Banding, Acute Blood Loss Anemia, Alcohol Abuse, Liver Cirrhosis, Coagulopathy, Elevated LFTs Exam Limitations: No Limitations - Ebola screening Have you traveled outside of the country in the last 21 days: No (N) Have you had contact with anyone from an Ebola affected area: No Do you have a fever: No - Review of Systems Constitutional: No Symptoms Reported EENT: reports: No Symptoms Reported Respiratory: reports: No Symptoms reported Cardiac: reports: No Symptoms Reported GI: reports: No Symptoms Reported : reports: No Symptoms Reported Musculoskeletal: reports: No Symptoms Reported Integumentary: reports: No Symptoms Reported Neuro: reports: No Symptoms reported Endocrine: reports: No Symptoms Reported Psychiatric: reports: Orientated x3 Patient History - Patient Medical History Hx Anemia: No Hx Asthma: No Hx Chronic Obstructive Pulmonary Disease (COPD): No Hx Cancer: No Hx Cardiac Disorders: No Hx Congestive Heart Failure: No Hx Hypertension: No Hx Hypercholesterolemia: No Hx Pacemaker: No HX Cerebrovascular Accident: No Hx Seizures: No Hx Dementia: No Hx Diabetes: No Hx Gastrointestinal Disorders: No Hx Liver Disease: No Hx Genitourinary Disorders: No Hx Sexually Transmitted Disorders: No Hx Renal Disease (ESRD): No Hx Thyroid Disease: No Hx Human Immunodeficiency Virus (HIV): No Hx Hepatitis C: No Hx Depression: No Hx Suicide Attempt: No Hx Bipolar Disorder: No Hx Schizophrenia: No - Patient Surgical History Past Surgical History: No - PPD History Date: 12/17/18 - Smoking Cessation Smoking history: Never smoked Have you smoked in the past 12 months: No Hx Chewing Tobacco Use: No - Substances abused Alcohol Substance route: Oral Frequency: Daily Amount used: 1 pint of vodka Age of first use: 57 Date of last use: 01/01/19 Admission Physical Exam [facility] - Vital Signs Vital Signs: Vital Signs - 24 hr 01/13/19 11:46 Temperature 98.5 F Pulse Rate 86 Respiratory 17 Rate Blood Pressure 131/65 - Physical General Appearance: Yes: No Apparent Distress HEENTM: Yes: EOMI, Normocephalic, Normal Voice, Scleral Ictenus R, Scleral Ictenus L, Other (mucosal erythema) Respiratory: Yes: Chest Non-Tender, Lungs Clear, Normal Breath Sounds, No Respiratory Distress, No Accessory Muscle Use Neck: Yes: No masses,lesions,Nodules, Trachea in good position Cardiology: Yes: Regular Rhythm, Regular Rate, S1, S2 Abdominal: Yes: Soft, Protuberent, Distended Musculoskeletal: Yes: Gait Steady Extremities: Yes: Normal Inspection, Non-Tender, Pedal Edema Neurological: Yes: Fully Oriented, Alert, Motor Strength 5/5, Normal Mood/Affect Integumentary: Yes: Warm, Other (ecchymosis left UE) - Diagnostic (1) Alcohol dependence in early full remission Current Visit: Yes Status: Acute Breathalyzer - Breathalyzer Breathalyzer: 0 Urine Drug Screen - Test Device Lot number: [id number] Expiration date: 09/18/20 - Control Is test valid?: Yes - Results Drug screen NEGATIVE: Yes Inpatient Rehab Admission - Rehab Decision to Admit Inpatient rehab admission?: Yes - Initial Determination Are CD services needed?: Yes Free of communicable disease: Yes Not in need of hospitalization: Yes - Rehab Admission Criteria Previous failed treatment: Yes Poor recovery environment: No Comorbidities: No Lacks judgement: Yes Patient is meeting Inpatient Rehab admission criteria:: Yes
[2019-01-13] MEDS ORDERED: guaiFENesin 200 MG/10 ML 10 ML UNIT-DOSE CUPS PO PRN (13:50)
[2019-01-13] MEDS ORDERED: MAGNESIUM HYDROX 2400MG/30ML ORAL SUSPENSION 30 ML CUP PO PRN (13:50)
[2019-01-13] MEDS ORDERED: MENTHOL/PHENOL 1 EACH UD MM PRN (13:50)
[2019-01-13] MEDS ORDERED: MAG HYDROX/AL HYDROX/SIMETH 30 ML UNIT-DOSE CUP PO PRN (13:50)
[2019-01-13] MEDS ORDERED: P-EPHED 60MG/TRIPROLIDI 2.5MG TABLET PO PRN (13:50)
[2019-01-13] MEDS ORDERED: MAGNESIUM CITRATE 300 ML BOTTLE PO PRN (13:50)
[2019-01-13] MEDS: ZINC SULFATE 220 MG CAPSULE (FP) PO SCH ×2 (17:02→21:39)
[2019-01-13] MEDS: MELATONIN 5 MG TABLETS PO PRN (21:39)
[2019-01-13] MEDS: THIAMINE HCL 100 MG TABLET (FP) PO SCH (21:39)
[2019-01-13] MEDS: RIFAXIMIN 550 MG TABLET (UD) PO SCH (21:39)
[2019-01-14] MEDS: ZINC SULFATE 220 MG CAPSULE (FP) PO SCH ×3 (06:26→21:22)
[2019-01-14] MEDS: RIFAXIMIN 550 MG TABLET (UD) PO SCH ×2 (09:34→21:21)
[2019-01-14] MEDS: PANTOPRAZOLE 40 MG TABLET (FP) PO SCH (09:35)
[2019-01-14] MEDS: NADOLOL 20 MG TABLET (FP) PO SCH (09:35)
[2019-01-14] MEDS: SPIRONOLACTONE 25 MG TABLET (FP) PO SCH (09:35)
[2019-01-14] MEDS: PRENATAL VITAMINS W/ FOLIC ACID TABLET (FP) PO SCH (09:35)
[2019-01-14] MEDS: FUROSEMIDE 20 MG TABLET (FP) PO SCH (09:35)
[2019-01-14] MEDS: MELATONIN 5 MG TABLETS PO PRN (21:22)
[2019-01-14] MEDS: THIAMINE HCL 100 MG TABLET (FP) PO SCH (21:22)
[2019-01-15] MEDS: ZINC SULFATE 220 MG CAPSULE (FP) PO SCH ×3 (06:06→21:07)
[2019-01-15] MEDS: FUROSEMIDE 20 MG TABLET (FP) PO SCH (10:03)
[2019-01-15] MEDS: PANTOPRAZOLE 40 MG TABLET (FP) PO SCH (10:03)
[2019-01-15] MEDS: NADOLOL 20 MG TABLET (FP) PO SCH (10:04)
[2019-01-15] MEDS: PRENATAL VITAMINS W/ FOLIC ACID TABLET (FP) PO SCH (10:04)
[2019-01-15] MEDS: SPIRONOLACTONE 25 MG TABLET (FP) PO SCH (10:05)
[2019-01-15] MEDS: RIFAXIMIN 550 MG TABLET (UD) PO SCH ×2 (10:05→21:07)
[2019-01-15] MEDS: THIAMINE HCL 100 MG TABLET (FP) PO SCH (21:07)
[2019-01-15] MEDS: MELATONIN 5 MG TABLETS PO PRN (21:07)
[2019-01-16] MEDS: ZINC SULFATE 220 MG CAPSULE (FP) PO SCH ×3 (06:30→21:01)
[2019-01-16] MEDS: PRENATAL VITAMINS W/ FOLIC ACID TABLET (FP) PO SCH (10:08)
[2019-01-16] MEDS: PANTOPRAZOLE 40 MG TABLET (FP) PO SCH (10:08)
[2019-01-16] MEDS: RIFAXIMIN 550 MG TABLET (UD) PO SCH ×2 (10:10→21:03)
[2019-01-16] MEDS: NADOLOL 20 MG TABLET (FP) PO SCH (10:18)
[2019-01-16] MEDS: FUROSEMIDE 20 MG TABLET (FP) PO SCH (10:18)
[2019-01-16] MEDS: SPIRONOLACTONE 25 MG TABLET (FP) PO SCH (11:00)
[2019-01-16] MEDS: THIAMINE HCL 100 MG TABLET (FP) PO SCH (21:02)
[2019-01-17] MEDS: ZINC SULFATE 220 MG CAPSULE (FP) PO SCH ×3 (06:29→21:05)
[2019-01-17] MEDS: PRENATAL VITAMINS W/ FOLIC ACID TABLET (FP) PO SCH (12:41)
[2019-01-17] MEDS: NADOLOL 20 MG TABLET (FP) PO SCH (12:41)
[2019-01-17] MEDS: FUROSEMIDE 20 MG TABLET (FP) PO SCH (12:41)
[2019-01-17] MEDS: SPIRONOLACTONE 25 MG TABLET (FP) PO SCH (12:41)
[2019-01-17] MEDS: PANTOPRAZOLE 40 MG TABLET (FP) PO SCH (12:42)
[2019-01-17] MEDS: RIFAXIMIN 550 MG TABLET (UD) PO SCH ×2 (12:42→21:05)
[2019-01-17] MEDS: THIAMINE HCL 100 MG TABLET (FP) PO SCH (21:05)
[2019-01-18] MEDS: ZINC SULFATE 220 MG CAPSULE (FP) PO SCH ×3 (06:21→21:01)
[2019-01-18] MEDS: FUROSEMIDE 20 MG TABLET (FP) PO SCH (10:00)
[2019-01-18] MEDS: PANTOPRAZOLE 40 MG TABLET (FP) PO SCH (10:04)
[2019-01-18] MEDS: SPIRONOLACTONE 25 MG TABLET (FP) PO SCH (10:04)
[2019-01-18] MEDS: PRENATAL VITAMINS W/ FOLIC ACID TABLET (FP) PO SCH (10:04)
[2019-01-18] MEDS: RIFAXIMIN 550 MG TABLET (UD) PO SCH ×2 (10:04→21:01)
[2019-01-18] MEDS: NADOLOL 20 MG TABLET (FP) PO SCH (10:04)
--- NOTE | 2019-01-18 10:31 | PN ---
[facility] Progress Note Note: Nurses have reported several times this week that Mr. Miguel refused his medications during medication times. Pt states he wants to talk to his doctor first before taking medications. Pt also requests to restart Vitamin D therapy of 50,000 I.U weekly which was put on hold at time of admission from [facility]. Pt is unable to say when he took it last and how long he has been on it if any. Rather , pt stated his brother who "is a doctor buys it from the pharmacy and/ or online" and that he "takes it everyday" and he takes it with his brother and did not bring it with him because did not want to deprive him of it, "you know what I mean". Pt has been given the phone and fax numbers here to relay to his provider when he speaks to him should he want to talk to staff about his medications and fax any medication document to the unit. Pt is alert o x 3. In no acute distress. Pt has been reminded by staff the need to be on his medications with continued staff monitoring per protocol. Past medical hx includes: Alcohol dependence Abdominal pain Cirrhosis of liver Dog bite of right thigh Elevated alkaline phosphatase level Elevated aspartate aminotransferase level Fatty liver GIB (gastrointestinal bleeding) Hematemesis Hematoma Hyperbilirubinemia Prophylactic measure Varices of esophagus determined by endoscopy GERD (gastroesophageal reflux disease) Hypertension Anemia Acute respiratory failure Vital Signs (72 hours) 01/16/19 01/16/19 01/17/19 06:45 10:00 00:30 Temperature 98.6 F Pulse Rate 77 76 Respiratory 18 18 Rate Blood Pressure 108/68 93/54 L 01/17/19 01/17/19 01/17/19 03:30 06:48 07:24 Temperature 98.3 F 98.3 F Pulse Rate 77 77 Respiratory 18 18 18 Rate Blood Pressure 104/64 104/64 01/17/19 01/18/19 01/18/19 10:00 00:30 07:09 Temperature 97.9 F Pulse Rate 81 81 Respiratory 18 18 Rate Blood Pressure 103/58 L 107/68 A/P Noncompliant with care Monitor patients status Maintain safety Addendum:Pt requested to speak to this scenario writer this morning as per nursing. On approaching the patient, he stated "I didn't wanna see you". Pt is alert o x 3. In no acute distress. Pt was sitting in common area socializing with peers
[2019-01-18] MEDS: THIAMINE HCL 100 MG TABLET (FP) PO SCH (21:02)
[2019-01-18] MEDS: MELATONIN 5 MG TABLETS PO PRN (21:02)
[2019-01-19] MEDS: ZINC SULFATE 220 MG CAPSULE (FP) PO SCH ×2 (06:05→14:28)
[2019-01-19 07:50] VITALS: TEMP 98.2
[2019-01-19] MEDS: PRENATAL VITAMINS W/ FOLIC ACID TABLET (FP) PO SCH (10:11)
[2019-01-19] MEDS: FUROSEMIDE 20 MG TABLET (FP) PO SCH (10:11)
[2019-01-19] MEDS: PANTOPRAZOLE 40 MG TABLET (FP) PO SCH (10:11)
[2019-01-19] MEDS: NADOLOL 20 MG TABLET (FP) PO SCH (10:12)
[2019-01-19] MEDS: SPIRONOLACTONE 25 MG TABLET (FP) PO SCH (10:12)
[2019-01-19] MEDS: RIFAXIMIN 550 MG TABLET (UD) PO SCH (10:12)
[2019-01-19 12:43] VITALS: BP 107/56; PULSE 81
--- NOTE | 2019-01-19 13:47 | DS ---
[facility] Rehab Discharge Summary - [facility] Rehab Discharge Summary Admission Date: 01/13/19 Discharge Date: 01/20/19 - History Present History: Alcohol dependence Additional Comments: Pt is a 58 y/o male with a hx of MIKE admitted to rehab and requesting an early discharge today to follow up with his primary care provider Dr. Tolliver who he has been speaking to while here in rehab. This com writer was not spoken to the primary care provider yesterday as patient called from his counselor's office. However, his primary care provider Dr. Tolliver returned pt's call again today and also spoke to this com writer. Pt reports he has chronic illnesses that he needs to follow up and not currently focusing on being here for rehab. Pt has also been refusing most of his medications and not compliant with taking his prescribed meds as ordered stating he wants to talk to his doctor before taking them. Pt was admitted to rehab after days of inpatient treatment at [facility] [place] after a previous stay at [facility] within a one week span. Dr. Tolliver informed pt will see him tomorrow for a follow up and also asked for option for patient to return to complete rehab if necessary. However, pt is not certain if he wants to return back here yet as suggested. Pertinent Past History: GERD HTN Esophageal Varices Fatty Liver Liver Cirrhosis Hep C - Discharge Physical Exam Vital Signs: Vital Signs Temperature 98.2 F 01/19/19 07:49 Pulse Rate 81 01/19/19 10:00 Respiratory Rate 18 01/19/19 07:49 Blood Pressure 107/56 L 01/19/19 10:00 O2 Sat by Pulse Oximetry (%) Alert o x 3 nad oob ambulating with steady gait cardiac:s1 s2, rrr lungs:cta,laina. abdomen:+bs,nt,protruded extremities/skin:bilateral edema-3+,full ROM,no open skin Pertinent Admission Physical Exam Findings: Laboratory Tests 01/18/19 08:07 HIV 1&2 Ag/Ab, 4th Gen Non reactive Pt with bilateral ankle edema - Treatment Discharge Condition: Discharge condition good Hospital Course: safety maintained while in rehab. Pt participated in activity as desired. - Medication Discharge Medications: Ambulatory Orders Ergocalciferol (Vitamin D2) [Drisdol] 50,000 unit PO WEEKLY 01/13/19 Folic Acid 1 mg PO DAILY 01/13/19 Furosemide [Lasix -] 20 mg PO DAILY 01/13/19 Multivitamins [Tab-A-Vit -] 1 tab PO DAILY 01/13/19 Nadolol [Corgard -] 40 mg PO DAILY 01/13/19 Pantoprazole Sodium [Protonix] 40 mg PO DAILY 01/13/19 Rifaximin [Xifaxan] 550 mg PO BID 01/13/19 Spironolactone 50 mg PO DAILY 01/13/19 Thiamine HCl [B-1] 100 mg PO DAILY 01/13/19 Zinc Sulfate 220 mg PO TID 01/13/19 - Medication-Assisted Treatment (MAT) Medication-Assisted Treatment (MAT): No - Discharge Instructions Diet, activity, other medical instructions: Diet: Activity: Other medical instructions: - Diagnosis (1) Alcohol dependence in early full remission Status: Chronic (2) Cirrhosis of liver Status: Chronic Qualifiers: Ascites presence: unspecified (3) GERD (gastroesophageal reflux disease) Status: Chronic Qualifiers: Esophagitis presence: without esophagitis Qualified Code(s): K21.9 - Gastro -esophageal reflux disease without esophagitis (4) Hypertension Status: Chronic Qualifiers: Hypertension type: essential hypertension Qualified Code(s): I10 - Essential (primary) hypertension - Follow-up Referral Minutes to complete discharge: 30 - AMA Did Patient Leave Against Medical Advice: No Additional Comments: Pt called his primary care provider Dr. Tolliver this afternoon on the phone who responded and spoke to patient and this com writer. Pt made his provider aware that he is not in any acute distress, no bleeding but will still want to see him at the clinic. Pt insists on leaving today to follow up tomorrow. Pt will see Dr. Tolliver at [facility] tomorrow as per their phone conversation. Pt reports he has own medications as above. No Rx given to patient at this time.
== END 2019-01-19 15:00 | disposition home or self-care (01) | DRG 772 ==
LOC: YASAS 10:37 → Y5N 15:02
PROVIDERS: ADMIT Neuromusculoskeletal Medicine & OMM; ATTEND Neuromusculoskeletal Medicine & OMM
PROC: HZ40ZZZ Group Counseling for Substance Abuse Treatment, Cognitive (ICD-10-PCS; principal; 2019-01-13)
DX: F10.20 Alcohol dependence, uncomplicated (principal); I10 Essential (primary) hypertension; K21.9 Gastro-esophageal reflux disease without esophagitis; K74.60 Unspecified cirrhosis of liver; B19.20 Unspecified viral hepatitis C without hepatic coma; K76.0 Fatty (change of) liver, not elsewhere classified; D68.9 Coagulation defect, unspecified; K74.69 Other cirrhosis of liver; I85.10 Secondary esophageal varices without bleeding; R94.5 Abnormal results of liver function studies; Z91.14 Patient's other noncompliance with medication regimen
CPT/HCPCS: 36415; 87389